=== PATIENT | male | born 1945 | race African-American/Black ===

== ENCOUNTER 2019-03-11 20:58 | Emergency (ER) | payer MEDICARE, OTHER ==
[~2019-03-11] VITALS: Ht 182.9 cm; Wt 81.6 kg
--- NOTE | 2019-03-11 21:00 | NUR ---
ED Nurse Note: PT FLORENTIN from [facility], facility reporting pt with increased confusion today, pt is A&Ox1 due to dementia status, VSS, on room air no distress. SOLITARIO seen Pt at bedside.
--- NOTE | 2019-03-11 21:30 | NUR ---
ED Nurse Note: Urine and blood sample sent to lab.
--- NOTE | 2019-03-11 21:40 | NUR ---
ED Nurse Note: Pt went to CT scan.
[2019-03-11 21:46] LABS: APPEARANCE,URINE CLEAR; BILIRUBIN, URINE NEGATIVE (NEGATIVE); GLUCOSE, URINE (UA) NEGATIVE (NEGATIVE); KETONES,URINE NEGATIVE (NEGATIVE); LEUKOCYTE ESTERASE ,URINE NEGATIVE (NEGATIVE); NITRITE,URINE NEGATIVE (NEGATIVE); PH,URINE 5 (4.5-8.0); PROTEIN,URINE 1+ (NEGATIVE); UROBILINOGEN,URINE 1 MG/DL (0.0-1.0)
[2019-03-11 21:47] LABS: BASOPHILS % (AUTO) 2.2 % (0.0-2.0); EOSINOPHILS % (AUTO) 2.6 % (0.0-3.0); HEMATOCRIT 40.6 % (42.0-52.0); HEMOGLOBIN 13.9 G/DL (14.2-18.0); LYMPHOCYTES % (AUTO) 38.3 % (20.0-45.0); MEAN CORPUSCULAR VOLUME 87 FL (80-99); MONOCYTES % (AUTO) 8.4 % (1.0-10.0); NEUTROPHILS % (AUTO) 48.4 % (45.0-75.0); PLATELET COUNT 292 K/UL (150-450); RED BLOOD COUNT 4.66 M/UL (4.70-6.10); RED CELL DISTRIBUTION WIDTH 11.4 % (11.6-14.8); WHITE BLOOD COUNT 6.2 K/UL (4.8-10.8)
[2019-03-11 21:48] LABS: COLOR,URINE YELLOW
[2019-03-11 21:55] LABS: ANION GAP 6 mmol/L (5-15); BLOOD UREA NITROGEN 20 mg/dL (7-18); CALCIUM 9.8 MG/DL (8.5-10.1); CARBON DIOXIDE 29 MMOL/L (21-32); CHLORIDE 107 MMOL/L (98-107); CREATININE 1.2 MG/DL (0.55-1.30); SODIUM 142 MMOL/L (136-145)
[2019-03-11 22:06] LABS: ALANINE AMINOTRANSFERASE 39 U/L (12-78); ALBUMIN 3.5 G/DL (3.4-5.0); ALBUMIN/GLOBULIN RATIO 0.8 (1.0-2.7); ALKALINE PHOSPHATASE 55 U/L (46-116); ASPARTATE AMINO TRANSFERASE 39 U/L (15-37); BILIRUBIN,TOTAL 0.3 MG/DL (0.2-1.0)
--- NOTE | 2019-03-11 23:00 | NUR ---
ED Nurse Note: Report given to [facility] JOESPH Slade Pt will return back SNF.
--- NOTE | 2019-03-11 23:02 | NUR ---
ED Nurse Note: Pt pee on floor due to dementia, clean Pt and change new cloth.
[2019-03-11 23:03] VITALS: BP 130/71
--- NOTE | 2019-03-11 23:10 | NUR ---
ED Nurse Note: Snack food provided,
[2019-03-11 23:44] VITALS: BP 146/80
--- NOTE | 2019-03-11 23:47 | NUR ---
ED Nurse Note: Report given to CARLOS Oneal. Pt is AO x 2 times due to dementia status, VSS, on room air no distress. Pt will arrive SNF in 25 minutes.
[2019-03-11 23:48] VITALS: BP 146/80
--- NOTE | 2019-03-12 02:47 | Emergency Room Report ---
History of Present Illness General Chief Complaint: Altered Mental Status Source: Patient, Medical Record, EMS Present Illness HPI 73-year-old male presents ED for evaluation. Brought in by EMS from senior living facility for evaluation of increasing confusion. Per nursing staff patient was found wandering at facility today appeared confused. Upon arrival patient is awake. States he feels okay. Does not know why he is here. Denies any pain. Denies any dizziness or weakness. Denies fevers or chills. No other aggravating or relieving factors. Denies any other associated symptoms Allergies: Coded Allergies: No Known Allergies (Unverified , 03/11/19) Patient History Past Medical History: dementia, psych hx Past Surgical History: none Pertinent Family History: none Social History: Denies: smoking, alcohol use, drug use Immunizations: UTD Reviewed Nursing Documentation: PMH: Agreed; PSxH: Agreed Nursing Documentation-PMH Past Medical History Deferred: Pt Cognitively Impaired Past Medical History: No History, Except For History Of Psychiatric Problem: Yes - schizo, pyschosis, depression Review of Systems All Other Systems: negative except mentioned in HPI Physical Exam Vital Signs Date Time Temp Pulse Resp B/P (MAP) Pulse Ox O2 Delivery O2 Flow Rate FiO2 03/11/19 20:54 98.6 80 18 134/78 (96) 96 Room Air Sp02 EP Interpretation: reviewed, normal General Appearance: no apparent distress, alert, GCS 15, non-toxic Head: normocephalic Eyes: bilateral eye normal inspection, bilateral eye PERRL ENT: normal ENT inspection Neck: normal inspection Respiratory: chest non-tender, lungs clear, normal breath sounds, speaking full sentences Cardiovascular #1: regular rate, rhythm, no edema Gastrointestinal: normal bowel sounds, non tender, soft, non-distended, no guarding, no rebound Rectal: deferred Genitourinary: no CVA tenderness Musculoskeletal: normal inspection Neurologic: alert, responsive, motor strength/tone normal, sensory intact, speech normal Psychiatric: mood/affect normal, no suicidal/homicidal ideation Skin: no rash Lymphatic: normal inspection Medical Decision Making Diagnostic Impression: Primary Impression: Altered mental status Qualified Codes: R41.82 - Altered mental status, unspecified Additional Impression: Dementia Qualified Codes: F03.90 - Unspecified dementia without behavioral disturbance ER Course Hospital Course 73-year-old male presents with altered mental status. Found wandering in senior living facility Differential diagnoses include: arrythmia, dehydration, intracranial bleed, UTI , sepsis Clinical course Patient placed on stretcher. on communication and outreach manager. After initial history and physical I ordered labs, EKG, chest Xray, IVFs, CT Brain labs reviewed- no leukocytosis, Hb/Hct stable, electrolytes ok, UA negative CT Brain - old subdural hematoma. no mass effect or midline shift Chest x-ray- no acute process EKG - NSR, no acute ischemic changes inteprreted by me Patient has no focal deficits. Is able to converse with myself and nursing staff. Vitals stable. Labs unremarkable. Patient is DNR/comfort. This is likely patient's baseline dementia. Discussed with PMD Dr. Castillo; he agrees that patient can be safely discharged back to senior living facility I. I feel this is a highly complex case requiring extensive working including EKG/Rhythm strip, Xray/CT/US, Blood/urine lab work, repeat exams while in ED, and administration of strong opiates/narcotics for pain control, admission to hospital or close patient follow up. Diagnosis - AMS, dementia Stable and discharged to SNF. Followup with PMD. Return to ED if symptoms recur or worsen Labs Test 03/11/19 21:00 03/11/19 21:10 White Blood Count 6.2 K/UL (4.8-10.8) Red Blood Count 4.66 M/UL (4.70-6.10) Hemoglobin 13.9 G/DL (14.2-18.0) Hematocrit 40.6 % (42.0-52.0) Mean Corpuscular Volume 87 FL (80-99) Mean Corpuscular Hemoglobin 29.8 PG (27.0-31.0) Mean Corpuscular Hemoglobin Concent 34.2 G/DL (32.0-36.0) Red Cell Distribution Width 11.4 % (11.6-14.8) Platelet Count 292 K/UL (150-450) Mean Platelet Volume 6.8 FL (6.5-10.1) Neutrophils (%) (Auto) 48.4 % (45.0-75.0) Lymphocytes (%) (Auto) 38.3 % (20.0-45.0) Monocytes (%) (Auto) 8.4 % (1.0-10.0) Eosinophils (%) (Auto) 2.6 % (0.0-3.0) Basophils (%) (Auto) 2.2 % (0.0-2.0) Sodium Level 142 MMOL/L (136-145) Potassium Level 4.0 MMOL/L (3.5-5.1) Chloride Level 107 MMOL/L (98-107) Carbon Dioxide Level 29 MMOL/L (21-32) Anion Gap 6 mmol/L (5-15) Blood Urea Nitrogen 20 mg/dL (7-18) Creatinine 1.2 MG/DL (0.55-1.30) Estimat Glomerular Filtration Rate mL/min (>60) Glucose Level 163 MG/DL (74-106) Lactic Acid Level 1.40 mmol/L (0.4-2.0) Calcium Level 9.8 MG/DL (8.5-10.1) Total Bilirubin 0.3 MG/DL (0.2-1.0) Aspartate Amino Transf (AST/SGOT) 39 U/L (15-37) Alanine Aminotransferase (ALT/SGPT) 39 U/L (12-78) Alkaline Phosphatase 55 U/L (46-116) Pro-B-Type Natriuretic Peptide 63 pg/mL (0-125) Total Protein 7.9 G/DL (6.4-8.2) Albumin 3.5 G/DL (3.4-5.0) Globulin 4.4 g/dL Albumin/Globulin Ratio 0.8 (1.0-2.7) Urine Color Yellow Urine Appearance Clear Urine pH 5 (4.5-8.0) Urine Specific [place] 1.025 (1.005-1.035) Urine Protein 1+ (NEGATIVE) Urine Glucose (UA) Negative (NEGATIVE) Urine Ketones Negative (NEGATIVE) Urine Blood Negative (NEGATIVE) Urine Nitrite Negative (NEGATIVE) Urine Bilirubin Negative (NEGATIVE) Urine Urobilinogen 1 MG/DL (0.0-1.0) Urine Leukocyte Esterase Negative (NEGATIVE) Urine RBC 0-2 /HPF (0 - 0) Urine WBC 0-2 /HPF (0 - 0) Urine Squamous Epithelial Cells None /LPF (NONE/OCC) Urine Bacteria None /HPF (NONE) EKG Diagnostic Results Rate: normal Rhythm: NSR ST Segments: no acute changes ASA given to the pt in ED: No Rhythm Strip Diag. Results EP Interpretation: yes Rhythm: NSR, no PVC's, no ectopy Chest X-Ray Diagnostic Results Chest X-Ray Diagnostic Results : Chest X-Ray Ordered: Yes # of Views/Limited/Complete: 1 View Indication: Other EP Interpretation: Yes Interpretation: no consolidation, no effusion, no pneumothorax, no acute cardiopulmonary disease Impression: No acute disease Electronically Signed by: Electronically signed by Osito Echavarria MD CT/MRI/US Diagnostic Results CT/MRI/US Diagnostic Results : Imaging Test Ordered: CT Head Impression old subdural hematoma. no mass effect or midline shift Last Vital Signs Date Time Temp Pulse Resp B/P (MAP) Pulse Ox O2 Delivery O2 Flow Rate FiO2 03/11/19 23:48 98.1 73 18 146/80 100 Room Air Status: improved Disposition: XFER SNF Condition: Stable Referrals: Elaine Moreno MD (PCP) Danyel Castillo MD Patient Instructions: Dementia, [id number] Osito Echavarria MD Mar 12, 2019 02:47
--- NOTE | 2019-03-12 10:52 | Diagnostic Imaging Report ---
Indications: Altered mental status Technique: Spiral acquisitions obtained through the brain. Angled axial and coronal 5 x 5 mm slices were reconstructed. Total dose length product 1432.2 mGycm. CTDI vol(s) 70.38 mGy. Dose reduction achieved using automated exposure control Comparison: None. Findings: There is some image degradation due to motion artifact. There is a right frontal subdural hematoma which measures 3 mm in thickness, is isoattenuating to [place] matter. This does not result in any significant mass effect. No other evidence of acute hemorrhage or edema. There is extensive periventricular deep white matter low-attenuation. There is marked age-related enlargement of the ventricles and extra axial CSF spaces. The calvarium is intact. The visualized orbits and sinuses are unremarkable. There is evidence of prior surgical repair of the right mandible. The mastoids are clear. Impression: Small 3 mm thick right frontal subdural hematoma, probably subacute or old. No significant resultant mass effect Chronic age related changes, as described Evidence of prior right mandibular surgery This agrees with the preliminary interpretation provided overnight by Dr. Moreno The CT scanner at [facility] is accredited by the [employer] and the scans are performed using protocols designed to limit radiation exposure to as low as reasonably achievable to attain images of sufficient resolution adequate for diagnostic evaluation.
--- NOTE | 2019-03-12 16:18 | Diagnostic Imaging Report ---
Indication: Chest pain Technique: One view of the chest Comparison: none Findings: No acute infiltrates, effusions, or congestion. Tortuous calcified aorta. Normal heart size. Upper mediastinum unremarkable. Impression: No acute process.
== END 2019-03-11 23:51 ==
LOC: EDBD 20:58 → EMR 21:31
DX: F03.90 Unspecified dementia, unspecified severity, without behavioral disturbance, psychotic disturbance, mood disturbance, and anxiety (principal); R41.82 Altered mental status, unspecified; F20.9 Schizophrenia, unspecified; F32.9 Major depressive disorder, single episode, unspecified; R07.9 Chest pain, unspecified
CPT/HCPCS: 36415; 70450; 71045; 80053; 81003; 83605; 83880; 85025; 87040; 93005; 96360; 99284

== ENCOUNTER 2020-06-13 13:39 | Inpatient (IN) | payer MEDICARE, OTHER ==
[~2020-06-13] VITALS: Ht 198.1 cm; Wt 58.1 kg
[2020-06-13 13:50] VITALS: BP 146/83
--- NOTE | 2020-06-13 14:39 | Emergency Room Report ---
History of Present Illness General Chief Complaint: Multiple Trauma/Fall Source: Patient Present Illness HPI 74-year-old male with a history of dementia here with a syncopal episode and head trauma. Patient says that he was getting out of the tub and had a syncopal episode and fell and struck the left side of his head on the edge of the tub. Says that he was unconscious for a few seconds. His daughter witnessed the event. Patient is awake and alert in the emergency department. Only complaining of mild left-sided headache. Denies vision changes, focal numbness or weakness, fevers, chills, chest pain, palpitation, shortness of breath, back pain, abdominal pain, nausea, vomiting, diarrhea, dysuria. Allergies: Coded Allergies: ASPIRIN (Verified Allergy, Unknown, 06/13/20) COVID-19 Screening Contact w/high risk pt: No Experienced COVID-19 symptoms?: No COVID-19 Testing performed POLYSOMNOGRAPHY TECHNOLOGIST: No Nursing Documentation-PMH Past Medical History: No History, Except For Review of Systems All Other Systems: negative except mentioned in HPI Physical Exam Vital Signs Date Time Temp Pulse Resp B/P (MAP) Pulse Ox O2 Delivery O2 Flow Rate FiO2 06/13/20 13:45 97.5 95 16 146/83 (104) 100 Room Air Sp02 EP Interpretation: reviewed, normal General Appearance: no apparent distress, alert, non-toxic Head: normocephalic, other - Small 2 cm subcutaneous hematoma on left temporal scalp. No cervical spine tenderness. Normal neck range of motion Eyes: bilateral eye normal inspection, bilateral eye PERRL ENT: hearing grossly normal, normal pharynx, no angioedema, normal voice Neck: full range of motion, supple/symm/no masses Respiratory: chest non-tender, lungs clear, normal breath sounds, speaking full sentences Cardiovascular #1: regular rate, rhythm, no edema Cardiovascular #2: 2+ carotid (R), 2+ carotid (L), 2+ radial (R), 2+ radial (L), 2+ dorsalis pedis (R), 2+ dorsalis pedis (L) Gastrointestinal: normal bowel sounds, non tender, soft, non-distended, no guarding, no rebound Rectal: deferred Genitourinary: normal inspection, no CVA tenderness Musculoskeletal: back normal, normal range of motion, gait/station normal, non- tender Neurologic: alert, motor strength/tone normal, oriented x3, sensory intact, responsive, speech normal, other - Slightly slow to respond to questions but is alert and oriented x3 and able to respond to questions appropriately Psychiatric: judgement/insight normal, memory normal, mood/affect normal, no suicidal/homicidal ideation Lymphatic: no adenopathy Medical Decision Making Diagnostic Impression: Primary Impression: Altered mental status Additional Impressions: Fall Multiple injuries due to trauma Syncope UTI (urinary tract infection) Dehydration ER Course EKG: NSR, tall peaked T waves V2-V4, intervals WNL. No ectopy Rhythm strip: patient monitored for arrhythmias - no malignant dysrhythmias, runs of PVCs, nor pauses noted Chest x-ray: Indication fall with syncope: No acute cardiopulmonary abnormalities. Very mild pulmonary vascular congestion. No pleural effusions. No free air under the diaphragm. Normal heart borders. Trachea midline. No bony abnormalities. No pneumothorax Laboratory Tests Test 06/13/20 14:45 06/13/20 16:30 White Blood Count 10.1 K/UL (4.8-10.8) Red Blood Count 4.41 M/UL (4.70-6.10) L Hemoglobin 13.3 G/DL (14.2-18.0) L Hematocrit 39.1 % (42.0-52.0) L Mean Corpuscular Volume 89 FL (80-99) Mean Corpuscular Hemoglobin 30.0 PG (27.0-31.0) Mean Corpuscular Hemoglobin Concent 33.9 G/DL (32.0-36.0) Red Cell Distribution Width 12.8 % (11.6-14.8) Platelet Count 476 K/UL (150-450) H Mean Platelet Volume 6.8 FL (6.5-10.1) Neutrophils (%) (Auto) 69.1 % (45.0-75.0) Lymphocytes (%) (Auto) 20.2 % (20.0-45.0) Monocytes (%) (Auto) 7.2 % (1.0-10.0) Eosinophils (%) (Auto) 0.9 % (0.0-3.0) Basophils (%) (Auto) 2.5 % (0.0-2.0) H Sodium Level 143 MMOL/L (136-145) Potassium Level 3.2 MMOL/L (3.5-5.1) L Chloride Level 104 MMOL/L (98-107) Carbon Dioxide Level 29 MMOL/L (21-32) Anion Gap 10 mmol/L (5-15) Blood Urea Nitrogen 14 mg/dL (7-18) Creatinine 1.2 MG/DL (0.55-1.30) Estimated Glomerular Filtration Rate > 60 mL/min (>60) Glucose Level 104 MG/DL (74-106) Calcium Level 9.0 MG/DL (8.5-10.1) Total Bilirubin 0.9 MG/DL (0.2-1.0) Aspartate Amino Transferase (AST) 55 U/L (15-37) H Alanine Aminotransferase (ALT) 31 U/L (12-78) Alkaline Phosphatase 69 U/L (46-116) Troponin I 0.020 ng/mL (0.000-0.056) Total Protein 8.1 G/DL (6.4-8.2) Albumin 3.2 G/DL (3.4-5.0) L Globulin 4.9 g/dL Albumin/Globulin Ratio 0.7 (1.0-2.7) L Urine Color Pending Urine Appearance Pending Urine pH Pending Urine Specific [place] Pending Urine Protein Pending Urine Glucose (UA) Pending Urine Ketones Pending Urine Blood Pending Urine Nitrite Pending Urine Bilirubin Pending Urine Urobilinogen Pending Urine Leukocyte Esterase Pending 74-year-old male here after syncopal episode. Patient was hemodynamically stable throughout his stay in the emergency department. He has dementia at his baseline and was slightly combative in the emergency room refusing interventions such as CT scan and blood draws. Patient was given Haldol and Ativan. CT head and CT cervical spine unremarkable. EKG showed some enlarged T waves in V2 and V3, however CMP showed normal values including a normal potassium. CBC largely unremarkable. Chest x-ray normal. Patient's daughter and primary physician informed the emergency room that the patient has been showing evidence of urinary tract infection. Urinalysis currently pending at this time but patient did receive ceftriaxone as well as 1 L of normal saline in the emergency department. He remained hemodynamically stable and neurovascular intact throughout the stay in the emergency department. Admitted to telemetry in stable condition. Last Vital Signs Date Time Temp Pulse Resp B/P (MAP) Pulse Ox O2 Delivery O2 Flow Rate FiO2 06/13/20 13:50 97.5 95 16 146/83 100 Room Air Tray Blum M.D. Jun 13, 2020 14:39
[2020-06-13] MEDS ORDERED: Haloperidol 5mg/ml Inj ONE (14:56)
[2020-06-13] MEDS ORDERED: Haloperidol Lactate 2 MG in D5W 55 ML IVPB ONE (15:00)
[2020-06-13] MEDS ORDERED: LORazepam Inj 2mg/ml 1ml IV ONE (15:00)
[2020-06-13 15:18] LABS: BASOPHILS % (AUTO) 2.5 % (0.0-2.0); EOSINOPHILS % (AUTO) 0.9 % (0.0-3.0); HEMATOCRIT 39.1 % (42.0-52.0); HEMOGLOBIN 13.3 G/DL (14.2-18.0); LYMPHOCYTES % (AUTO) 20.2 % (20.0-45.0); MEAN CORPUSCULAR VOLUME 89 FL (80-99); MONOCYTES % (AUTO) 7.2 % (1.0-10.0); NEUTROPHILS % (AUTO) 69.1 % (45.0-75.0); PLATELET COUNT 476 K/UL (150-450); RED BLOOD COUNT 4.41 M/UL (4.70-6.10); RED CELL DISTRIBUTION WIDTH 12.8 % (11.6-14.8); WHITE BLOOD COUNT 10.1 K/UL (4.8-10.8)
[2020-06-13 15:38] LABS: ANION GAP 10 mmol/L (5-15); BLOOD UREA NITROGEN 14 mg/dL (7-18); CARBON DIOXIDE 29 MMOL/L (21-32); CHLORIDE 104 MMOL/L (98-107); CREATININE 1.2 MG/DL (0.55-1.30); POTASSIUM 3.2 MMOL/L (3.5-5.1); SODIUM 143 MMOL/L (136-145)
[2020-06-13 15:42] LABS: ALANINE AMINOTRANSFERASE 31 U/L (12-78); ALBUMIN 3.2 G/DL (3.4-5.0); ALBUMIN/GLOBULIN RATIO 0.7 (1.0-2.7); ALKALINE PHOSPHATASE 69 U/L (46-116); ASPARTATE AMINO TRANSFERASE 55 U/L (15-37); BILIRUBIN,TOTAL 0.9 MG/DL (0.2-1.0)
[2020-06-13 16:02] VITALS: BP 149/78
--- NOTE | 2020-06-13 16:21 | Diagnostic Imaging Report ---
Indications: Altered mental status, status post fall Technique: Spiral acquisitions obtained through the brain. Angled axial and coronal 5 x 5 mm slices were reconstructed. Total dose length product 1205 mGycm. CTDI vol(s) 53 mGy. Dose reduction achieved using automated exposure control Comparison: 03/11/2019 Findings: There is image degradation due to motion artifact. Small right frontal chronic subdural hematoma measuring up to 3 mm in thickness is unchanged, does not result in any significant mass effect. Again demonstrated is marked age-related enlargement of the ventricles and extra axial CSF spaces. There is periventricular deep white matter low-attenuation, consistent with chronic microvascular ischemic changes. No acute intracranial hemorrhage or edema, mass effect, nor midline shift. The mastoids are clear. The calvarium is grossly intact. The visualized orbits and sinuses are unremarkable Impression: Limited exam due to motion artifact Chronic and age-related changes Negative for acute intracranial bleed or mass effect Unchanged small old chronic right frontal subdural hematoma The CT scanner at [facility] is accredited by the [employer] and the scans are performed using protocols designed to limit radiation exposure to as low as reasonably achievable to attain images of sufficient resolution adequate for diagnostic evaluation.
--- NOTE | 2020-06-13 16:35 | Diagnostic Imaging Report ---
Indication: Trauma, pain Technique: Spiral acquisitions obtained through the cervical spine. No IV contrast utilized. Multiplanar reconstructions were generated. Total dose length product 492 mGycm. CTDIvol(s) 19 mGy. Dose reduction achieved using automated exposure control. Comparison: none Findings: There is a fracture of the left mandibular angle. There is some cortication indistinctness of the fracture lines, suggesting that this is nonacute, although there is also gas within the adjacent masseter muscle and thickening of the adjacent masseter muscle and adjacent subcutaneous fat suggesting acuity. This fracture abuts the root of the adjacent posterior molar there is surgical hardware seen within the right mandibular ramus/neck junction. No underlying fracture line is visible. There is also what appears to be surgical hardware along the mentum of the mandible. This is only included on the sagittal reconstructed images. There is extensive chronic appearing degenerative remodeling of the left mandibular head and marked narrowing of the joint space. There are degenerative changes of the right temporomandibular joint as well. The cervical bony alignment is normal. No prevertebral soft tissue swelling. Vertebral body heights are preserved. No acute fracture. No dislocation. There is moderate degenerative disc narrowing at C2-3. No significant disc bulge, disc protrusion, spinal stenosis, or neural foraminal stenosis. The C3-4 disc is essentially obliterated, and there is ankylosis of the disc. There are posterior osteophytes but no significant spinal canal stenosis. There is moderate to severe right, severe left neural foraminal stenosis. At C4-5, there is severe degenerative disc narrowing. There is severe bilateral neural foraminal stenosis. No significant disc bulge or protrusion or spinal stenosis. There is bilateral facet arthrosis. At C5-6, there is severe degenerative disc narrowing. There is severe bilateral neural foraminal stenosis. No significant disc bulge or protrusion or spinal stenosis. At C6-7, there is moderate degenerative disc narrowing. There is severe right and moderate to severe left neural foraminal stenosis. No significant disc bulge or protrusion or spinal stenosis. At C7-T1, no significant disc bulge or protrusion, spinal stenosis, or neural foraminal stenosis. There is bilateral facet arthrosis. The included extraspinal soft tissues demonstrate unusual eggshell calcifications in the left supraclavicular neck. There appear to be 3 rounded lesions in tandem, largest measuring 2 cm in diameter. Appearance is suggestive of calcified aneurysm or aneurysms, but these appear to be separate from the common carotid and subclavian arteries, so may represent a nonvascular process. The remainder of the extra spinal soft tissues are unremarkable. Impression: No evidence of acute cervical spine trauma Marked abnormality of the mandible, with evidence of prior surgery of the right neck/ramus and mentum, severe degenerative changes of the temporomandibular joints. There is also an ununited fracture of the left mandibular angle. Suspect that this is not acute, but there is some overlying muscular and subcutaneous fat contusion raising the possibility that this is acute. Correlation with clinical findings is recommended Unusual eggshell calcification structures in the left supraclavicular neck. These may represent calcified aneurysmal disease versus postinflammatory changes. Recommend further evaluation with contrast CT of the neck and upper chest that these have not been worked up previously. Multilevel degenerative changes, as detailed on a level by level basis above The CT scanner at [facility] is accredited by the [employer] and the scans are performed using protocols designed to limit radiation exposure to as low as reasonably achievable to attain images of sufficient resolution adequate for diagnostic evaluation.
[2020-06-13] MEDS ORDERED: cefTRIAXone 1 GM in NS 55 ML IVPB ONE (16:45)
[2020-06-13 17:20] LABS: APPEARANCE,URINE CLEAR; BILIRUBIN, URINE 1+ (NEGATIVE); GLUCOSE, URINE (UA) NEGATIVE (NEGATIVE); KETONES,URINE 1+ (NEGATIVE); LEUKOCYTE ESTERASE ,URINE 1+ (NEGATIVE); NITRITE,URINE NEGATIVE (NEGATIVE); PH,URINE 6.5 (4.5-8.0); PROTEIN,URINE 2+ (NEGATIVE); UROBILINOGEN,URINE 8 MG/DL (0.0-1.0)
[2020-06-13 17:31] LABS: COLOR,URINE YELLOW
[2020-06-14] VITALS: BP 141/76
[2020-06-14 04:00] VITALS: BP 114/60
[2020-06-14 08:00] VITALS: BP 105/55
[2020-06-14] MEDS: Heparin 5000 units/ml inj SUBQ SCH ×2 (10:04→20:10)
[2020-06-14 12:00] VITALS: BP 148/85
[2020-06-14] MEDS ORDERED: LORazepam Inj 2mg/ml 1ml IV PRN (12:15)
--- NOTE | 2020-06-14 12:59 | General Progress Note ---
Subjective Date patient seen: Jun 14, 2020 Constitutional: Reports: weakness HEENT: Reports: mouth pain, mouth swelling Cardiovascular: Reports: no symptoms Respiratory: Reports: cough Gastrointestinal/Abdominal: Reports: abdominal pain, constipated Genitourinary: Reports: burning, frequency, incontinence Neurologic/Psychiatric: Reports: depressed, weakness Endocrine: Reports: no symptoms Hematologic/Lymphatic: Reports: no symptoms Allergies: Coded Allergies: ASPIRIN (Verified Allergy, Unknown, 06/13/20) Subjective non verabal agitated Objective Last 24 Hour Vital Signs Date Time Temp Pulse Resp B/P (MAP) Pulse Ox O2 Delivery O2 Flow Rate FiO2 06/14/20 10:35 98.8 06/14/20 08:00 68 06/14/20 08:00 101.3 74 20 105/55 (72) 100 06/14/20 04:00 98.0 68 18 114/60 (78) 98 06/14/20 04:00 64 06/14/20 00:00 58 06/14/20 00:00 97.7 76 18 141/76 (97) 98 06/13/20 21:34 Room Air 06/13/20 18:30 97.4 76 18 112/68 98 Room Air 06/13/20 16:02 97.1 66 17 149/78 99 Room Air 06/13/20 15:32 72 18 158/74 99 06/13/20 15:02 95 16 146/83 100 06/13/20 13:50 97.5 95 16 146/83 100 Room Air 06/13/20 13:50 95 16 Room Air 06/13/20 13:45 97.5 95 16 146/83 (104) 100 Room Air Intake and Output 06/13/20 06/14/20 19:00 07:00 Intake Total 75 ml Balance 75 ml Intake IV Total 75 ml # Voids 1 Laboratory Tests 06/13/20 14:45: White Blood Count 10.1, Red Blood Count 4.41L, Hemoglobin 13.3L, Hematocrit 39.1L, Mean Corpuscular Volume 89, Mean Corpuscular Hemoglobin 30.0, Mean Corpuscular Hemoglobin Concent 33.9, Red Cell Distribution Width 12.8, Platelet Count 476H, Mean Platelet Volume 6.8, Neutrophils (%) (Auto) 69.1, Lymphocytes (%) (Auto) 20.2, Monocytes (%) (Auto) 7.2, Eosinophils (%) (Auto) 0.9, Basophils (%) (Auto) 2.5H, Sodium Level 143, Potassium Level 3.2L, Chloride Level 104, Carbon Dioxide Level 29, Anion Gap 10, Blood Urea Nitrogen 14, Creatinine 1.2, Estimat Glomerular Filtration Rate > 60, Glucose Level 104, Calcium Level 9.0, Total Bilirubin 0.9, Aspartate Amino Transf (AST/SGOT) 55H, Alanine Aminotransferase (ALT/SGPT) 31, Alkaline Phosphatase 69, Troponin I 0.020, Total Protein 8.1, Albumin 3.2L, Globulin 4.9, Albumin/Globulin Ratio 0.7L 06/13/20 16:30: Urine Color Yellow, Urine Appearance Clear, Urine pH 6.5, Urine Specific [place] 1.015, Urine Protein 2+H, Urine Glucose (UA) Negative, Urine Ketones 1+H, Urine Blood Negative, Urine Nitrite Negative, Urine Bilirubin 1+H, Urine Ictotest Negative, Urine Urobilinogen 8H, Urine Leukocyte Esterase 1+H, Urine RBC 0, Urine WBC 0-2, Urine Squamous Epithelial Cells None, Urine Bacteria Few Height (Feet): 5 Height (Inches): 9.00 Weight (Pounds): 125 General Appearance: confused Neck: non-tender Cardiovascular: normal rate Respiratory/Chest: lungs clear Abdomen: non tender, soft Extremities: non-tender Skin: warm/dry Assessment/Plan Status: fever Assessment/Plan: 1 uti 2 fever 3 aloc 4 dementia 5 fall 6 failure of thrive increased po fluids ivf iv abx pt/ot psych conslt Jakob Munoz MD Jun 14, 2020 12:59
--- NOTE | 2020-06-14 13:59 | Diagnostic Imaging Report ---
Indications: Left jaw pain, fracture demonstrated on recent cervical spine CT Technique: Spiral images obtained through the facial bones. No IV contrast utilized. Multiplanar reconstructions were generated.Total dose length product 453 mGycm. CTDIvol(s) 15 mGy. Dose reduction achieved using automated exposure control Comparison: Reference made to CT cervical spine 06/13/2020 Findings: Surgical hardware is seen along the mentum and left anterolateral aspect of the mandible. No residual fracture line is demonstrated. Surgical hardware is also seen within the right mandibular ramus/neck junction, likewise without evidence of residual acute fracture line. There is a slightly comminuted oblique fracture at the junction of the posterior mandibular body and angle. This is distracted by approximately 6 mm. This surrounds the root of the sole remaining molar, but the molar is intact. There is slight swelling of the overlying masseter muscle and a small amount gas within the overlying masseter muscle. However, the edges of the fracture lines appear somewhat sclerotic. There are severe degenerative changes of the bilateral temporomandibular joints, particularly on the left, with extensive degenerative remodeling and chronic appearing subluxation. No other facial fractures are demonstrated. The optic globes and retroseptal orbits are intact. The sinuses are clear. The patient is edentulous except for the one surviving left mandibular molar. Impression: Fracture of the left side of the mandible, as described. Suspect acute, given overlying soft tissue swelling and gas. However, some sclerotic fracture lines suggests that this could in fact be a subacute or old ununited fracture. Postsurgical changes of the mandible, with evidence of prior surgical repair of the mentum and left paramental region, and of the right ramus Severe degenerative changes of the temporomandibular joints Degenerative changes of the cervical spine The CT scanner at [facility], [place] is accredited by the [employer] and the scans are performed using protocols designed to limit radiation exposure to as low as reasonably achievable to attain images of sufficient resolution adequate for diagnostic evaluation.
[2020-06-14 16:00] VITALS: BP 155/72
[2020-06-14] MEDS: cefTRIAXone 1 GM in D5W 55 ML IVPB SCH (16:14)
--- NOTE | 2020-06-14 19:00 | History and Physical Report ---
DATE OF ADMISSION: 06/13/2020 Late entry. Patient was seen yesterday in the clinic, was sent to the emergency room because of multiple falls, altered mental status, dehydration, dementia, and jaw pain. HISTORY OF PRESENT ILLNESS: This is a 74-year-old male who came from a clinic where he lives with the daughter, where he had multiple falls and has been peeing allover the place and was having urinary incontinency and dehydration. Patient came to the emergency room and found to have dehydration and UTI. Patient is currently in the bed, sleepy. PAST MEDICAL HISTORY: Significant for dementia, depression, history of jaw infection and surgery. MEDICATIONS: See list. ALLERGIES: NKA. FAMILY HISTORY: Lives with the daughter. Patient used to walk by himself, now needing maximum assistance. REVIEW OF SYSTEMS: Cannot be obtained. PHYSICAL EXAMINATION: GENERAL: This is an elderly cachectic male who is currently in bed and sleepy. VITAL SIGNS: Blood pressure is 105/55, pulse 74, respirations 20, T-max 101.3. SKIN: Dry. HEENT: Eyes are closed. NECK: Supple. CHEST: Bilaterally decreased breath sounds. CARDIOVASCULAR: Regular rhythm. ABDOMEN: Soft. Positive bowel sounds. Nontender. EXTREMITIES: Wasting of muscles. GENITOURINARY: Deferred. LABORATORY EXAMINATION: Labs from yesterday, white counts are 10, hemoglobin 13, hematocrit 39, platelets are 476. Chemistry, potassium was 3.2, BUN 14, creatinine 1.2. Troponins are negative. Albumin is 3.2. Urine showing 1+ bilirubin, 8+ , and positive leukocyte esterase, ketones, and protein. IMAGING: Patient has a chest x-ray, no acute process. CT head showing a limited exam due to age-related changes. Negative for mass effect. CT of cervical spine showing no evidence of acute cervical spinal trauma. Multilevel degenerative changes. ASSESSMENT: 1. Altered mental status. 2. Multiple falls. 3. Dehydration. 4. UTI. 5. Dementia is getting worse. PLAN: We will currently continue , Zyprexa, lorazepam, Plavix, and Tylenol. Discussed with charge nurse. Jonathan Munoz M.D. DR: BEAR JOB#: [id number] CC:
[2020-06-14 20:00] VITALS: BP 143/74
[2020-06-14] MEDS: Haloperidol 5mg/ml Inj IM PRN (20:10)
[2020-06-15] VITALS (7 sets, daily range): BP systolic 139–160; BP diastolic 77–96
--- NOTE | 2020-06-15 00:30 | Consultation ---
DATE OF CONSULTATION: 06/14/2020 CONSULTING PHYSICIAN: Joni Del Rosario MD HISTORY OF PRESENT ILLNESS: This is a 74-year-old male with a history of depression, psychotic disorder, dementia who has been admitted to the hospital for multiple fall and altered mental status and jaw pain. Upon evaluation, patient is confused, disoriented. He has been urinating and being incontinent. He was a poor historian. Unable to provide any history. The patient has waxing and waning unconscious, memory impairment, not able to be engaged. PAST PSYCHIATRIC HISTORY: Dementia, anxiety. PAST MEDICAL HISTORY: As above. ALLERGIES: Aspirin. SUBSTANCE ABUSE HISTORY: No known history of illicit drug use or alcohol. MENTAL STATUS EXAMINATION: Patient is having waxing consciousness. Disoriented. Mood is anxious. Affect is flat. Thought process, there is a paucity of thought content. Thought content, no suicidal or homicidal ideation. Cognition is impaired. Insight and judgment is impaired. ASSESSMENT: [place] I Dementia. Acute encephalopathy. [place] II Deferred. [place] III Multiple falls. [place] IV Low. [place] V 20. PLAN: 1. Zyprexa 5 mg. 2. Haldol p.r.n. 3. Discontinue Ativan IV and continue the p.o. 4. Discussed with the nurse. Joni Del Rosario M.D. DR: PAUL JOB#: [id number] CC:
[2020-06-15] MEDS: Haloperidol 5mg/ml Inj IM PRN (02:36)
--- NOTE | 2020-06-15 04:10 | Cardiology Report ---
APPROVED REPORT EKG Measurement Heart [id number] <Conclusion> Normal sinus rhythm Left anterior fascicular block Minimal voltage criteria for LVH, may be normal variant Septal infarct, age undetermined Abnormal ECG
--- NOTE | 2020-06-15 08:49 | General Progress Note ---
Subjective Allergies: Coded Allergies: ASPIRIN (Verified Allergy, Unknown, 06/13/20) Subjective non verabal agitated confused Objective Last 24 Hour Vital Signs Date Time Temp Pulse Resp B/P (MAP) Pulse Ox O2 Delivery O2 Flow Rate FiO2 06/15/20 08:03 Room Air 06/15/20 04:00 98 06/15/20 04:00 99.2 84 20 160/82 (108) 100 06/15/20 00:00 99.0 78 20 155/80 (105) 99 06/15/20 00:00 78 06/14/20 21:00 Room Air 06/14/20 20:00 75 06/14/20 20:00 99.0 70 20 143/74 (97) 98 06/14/20 16:00 98 06/14/20 16:00 100.8 83 20 155/72 (99) 100 06/14/20 12:00 98.8 98 20 148/85 (106) 100 06/14/20 12:00 97 06/14/20 10:35 98.8 06/14/20 09:00 Room Air Intake and Output 06/14/20 06/15/20 19:00 07:00 Intake Total 1270 ml 825 ml Balance 1270 ml 825 ml Intake Oral 560 ml IV Total 710 ml 825 ml # Voids 1 3 Height (Feet): 5 Height (Inches): 9.00 Weight (Pounds): 125 General Appearance: cachetic, thin Neck: supple Cardiovascular: bradycardia Respiratory/Chest: lungs clear Abdomen: soft, no organomegaly Extremities: non-tender Neurologic: motor weakness Skin: warm/dry Assessment/Plan Status: fever Assessment/Plan: 1 uti 2 fever 3 aloc 4 dementia 5 fall 6 failure of thrive increased po fluids ivf iv abx pt/ot psych conslt follow culure dysphasia diet ct of jaw dw charge nurse Jakob Munoz MD Jun 15, 2020 08:49
[2020-06-15] MEDS: Heparin 5000 units/ml inj SUBQ SCH ×2 (09:03→20:51)
--- NOTE | 2020-06-15 15:00 | Consultation ---
DATE OF CONSULTATION: 06/15/2020 INFECTIOUS DISEASES CONSULTATION CONSULTING PHYSICIAN: Viviane Botello MD. REFERRING PHYSICIAN: Jakob Munoz MD. REASON FOR CONSULTATION: Urinary tract infection. HISTORY OF PRESENT ILLNESS: This is a 74-year-old gentleman with history of dementia, depression, jaw infection who comes in with multiple falls. He has been having urinary incontinency and he appeared to be dehydrated. He was also found to have urinary tract infection and an Infectious Diseases consultation has been obtained for antibiotics. PAST MEDICAL HISTORY: 1. History of dementia. 2. Depression. 3. Jaw infection. SOCIAL HISTORY: Unknown. FAMILY HISTORY: Unknown. REVIEW OF SYSTEMS: Unable to obtain currently. MEDICATIONS: As an inpatient, he is on Zyprexa, ceftriaxone, Haldol, Plavix, subcutaneous heparin, Tylenol. ALLERGIES: Noted to aspirin. PHYSICAL EXAMINATION: VITAL SIGNS: Temperature of 99, T-max of 101.3, pulse of 86, respiratory rate 23, blood pressure 151/78, O2 saturation of 97%. HEENT: Pupils equally reactive to light and accommodation. Mouth appears clean without thrush. NECK: Supple. No adenopathy. No JVD. CARDIOVASCULAR: Regular rate and rhythm. No murmurs. LUNGS: Clear to auscultation bilaterally. No crackles. No wheezes. ABDOMEN: Soft and nontender. No organomegaly. EXTREMITIES: No cyanosis, no clubbing, no edema. LABORATORY AND DIAGNOSTIC DATA: White count 10.1, hemoglobin 13.3, hematocrit 39.1, MCV 89, platelet count of 476 with neutrophils of 69%. Sodium 143, potassium 3.2, chloride 104, bicarb 29, BUN 14, creatinine 1.2, glucose 104, calcium of 9. Total bilirubin 0.9, AST 55, ALT 31, alkaline phosphatase 69. Troponin 0.02. Total protein 8.1, albumin 3.2. UA is showing 0 to [address] of the cervical spine showing no acute cervical spine trauma, marked abnormality of the mandible with evidence of prior surgery at the right ramus and mentum, severe degenerative changes of the temporomandibular joint is noted. There is an ununited fracture of the left mandibular angle, multilevel degenerative changes noted. 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 Chest x-ray showed no acute process. Maxillofacial CT showing fracture of the left side of the mandible, postsurgical changes of the mandible noted, degenerative changes noted. ASSESSMENT: This is a 74-year-old gentleman with history of dementia as well as depression who comes in with frequent falls and is found to have. 1. Possible urinary tract infection. 2. Dementia. 3. Depression. 4. History of mandibular fracture status post surgery. PLAN: 1. Continue ceftriaxone for now. 2. We will order urine cultures. 3. We will follow up cultures and adjust antibiotics accordingly. I would like to thank, Dr. Munoz for this consultation. Viviane Botello M.D. DR: Halle JOB#: [id number] CC: Jonathan Munoz M.D.; Fax#: [phone]
[2020-06-15] MEDS: cefTRIAXone 1 GM in D5W 55 ML IVPB SCH (15:13)
--- NOTE | 2020-06-15 22:45 | Psychiatric Progress Note ---
Psychiatry Progress Note Psychiatry Progress Note Medications Current Medications Medications (Trade) Dose Ordered Sig/Daniele Route PRN Reason Start Time Stop Time Status Last Admin Dose Admin Acetaminophen (Tylenol) 650 mg Q4H PRN ORAL Mild Pain (Pain Scale 1-3) 06/13/20 21:45 07/13/20 21:44 06/14/20 10:05 Ceftriaxone Sodium 1 gm/ Dextrose 55 ml @ 110 mls/hr Q24H IVPB 06/14/20 16:00 06/21/20 15:59 06/15/20 15:13 Clopidogrel Bisulfate (Plavix) 75 mg DAILY ORAL 06/14/20 09:00 07/14/20 08:59 06/15/20 08:51 Haloperidol Lactate (Haldol) 5 mg Q6H PRN IM Agitation 06/14/20 14:45 07/29/20 14:44 06/15/20 02:36 Heparin Sodium (Porcine) (Heparin 5000 units/ml) 5,000 units EVERY 12 HOURS SUBQ 06/14/20 09:00 07/29/20 08:59 06/15/20 20:51 Olanzapine (ZyPREXA) 5 mg BEDTIME ORAL 06/14/20 21:00 07/29/20 20:59 06/15/20 20:50 Potassium Chloride (K-Dur) 20 meq DAILY ORAL 06/14/20 12:15 09/12/20 12:14 06/15/20 08:51 Sodium Chloride 1,000 ml @ 75 mls/hr [id number] IV 06/13/20 22:00 07/13/20 21:59 06/15/20 14:26 Neurological/Psychiatric: Reports: depressed, weakness Allergies: Coded Allergies: ASPIRIN (Verified Allergy, Unknown, 06/13/20) Objective Data Height (Feet): 5 Height (Inches): 9.00 Weight (Pounds): 125 General Appearance: lethargic, confused, cachetic, thin Additional Comments: waxing consciousness. Disoriented. Mood is anxious. Affect is flat. Thought process, there is a paucity of thought content. Thought content, no suicidal or homicidal ideation. Cognition is impaired. Insight and judgment is impaired. Assessment/Plan Status: fever Assessment/Plan: ASSESSMENT: [place] I Dementia. Acute encephalopathy. [place] II Deferred. [place] III Multiple falls. [place] IV Low. [place] V 20. PLAN: 1. Zyprexa 5 mg. 2. Haldol p.r.n. 3. Discontinue Ativan IV and continue the p.o. 4. Discussed with the nurse. Joni Del Rosario MD Jun 15, 2020 22:45
[2020-06-16] VITALS (17 sets, daily range): BP systolic 109–154; BP diastolic 63–115
[2020-06-16] MEDS: Heparin 5000 units/ml inj SUBQ SCH ×2 (09:14→20:53)
[2020-06-16] MEDS ORDERED: LORazepam 1mg tab ORAL PRN (10:00)
[2020-06-16] MEDS: Haloperidol 5mg/ml Inj IM PRN (11:16)
--- NOTE | 2020-06-16 12:25 | General Progress Note ---
Subjective Allergies: Coded Allergies: ASPIRIN (Verified Allergy, Unknown, 06/13/20) Subjective non verabal pt found has aloc ac resp distress and tachacardic Objective Last 24 Hour Vital Signs Date Time Temp Pulse Resp B/P (MAP) Pulse Ox O2 Delivery O2 Flow Rate FiO2 06/16/20 10:41 86 19 134/75 97 06/16/20 10:11 86 19 144/86 95 06/16/20 09:00 Room Air 06/16/20 08:00 97.3 86 19 144/86 (105) 95 06/16/20 04:00 97.0 94 18 154/97 (116) 94 06/16/20 00:00 97.6 106 20 154/85 (108) 96 06/15/20 21:00 Room Air 06/15/20 20:00 98.6 105 20 151/96 (114) 98 06/15/20 18:30 97.7 98 22 139/84 (102) 98 06/15/20 16:00 97.7 98 22 159/89 (112) 94 06/15/20 16:00 86 Intake and Output 06/15/20 06/16/20 19:00 07:00 Intake Total 875 ml 900 ml Output Total 400 ml Balance 875 ml 500 ml Intake Oral 200 ml IV Total 675 ml 900 ml Output Urine Total 400 ml # Voids 1 # Bowel Movements 1 Laboratory Tests 06/16/20 11:45: Arterial Blood pH 7.463H, Arterial Blood Partial Pressure CO2 33.2L, Arterial Blood Partial Pressure O2 62.9L, Arterial Blood HCO3 23.2, Arterial Blood Oxygen Saturation 92.8L, Arterial Blood Base Excess 0.2, Mark Test Positive Height (Feet): 5 Height (Inches): 9.00 Weight (Pounds): 125 General Appearance: severe distress Neck: supple Cardiovascular: tachycardia Respiratory/Chest: rhonchi - bilaterally Abdomen: non tender, soft Extremities: non-tender Assessment/Plan Status: fever Assessment/Plan: 1 uti 2 fever 3 aloc 4 dementia 5 fall 6 failure of thrive 7 ac cardio-pulmonary arrest transfer to icu check abg cxr dw ed dr parks called cardio npo dc ivf cont iv abx dw charge nurse Jakob Munoz MD Jun 16, 2020 12:25
--- NOTE | 2020-06-16 13:06 | Infectious Diseases Prog Note ---
Assessment/Plan Assessment/Plan A; 1. Possible urinary tract infection. 2. Dementia. 3. Depression. 4. History of mandibular fracture status post surgery. 5. Hypoxemia 6. Tachycardia PLAN: 1. Continue ceftriaxone for now. 2. We will order CXR 3. We will follow up cultures and adjust antibiotics accordingly Subjective ROS Limited/Unobtainable: Yes Constitutional: Reports: other - transferred to ICU; Denies: fever Respiratory: Reports: shortness of breath Allergies: Coded Allergies: ASPIRIN (Verified Allergy, Unknown, 06/13/20) Objective Last 24 Hour Vital Signs Date Time Temp Pulse Resp B/P (MAP) Pulse Ox O2 Delivery O2 Flow Rate FiO2 06/16/20 12:35 153 26 86 06/16/20 12:30 97.8 126 33 137/88 (104) 100 06/16/20 12:00 97.8 143 26 154/115 (128) 86 06/16/20 10:41 86 19 134/75 97 06/16/20 10:11 86 19 144/86 95 06/16/20 09:00 Room Air 06/16/20 08:00 97.3 86 19 144/86 (105) 95 06/16/20 04:00 97.0 94 18 154/97 (116) 94 06/16/20 00:00 97.6 106 20 154/85 (108) 96 06/15/20 21:00 Room Air 06/15/20 20:00 98.6 105 20 151/96 (114) 98 06/15/20 18:30 97.7 98 22 139/84 (102) 98 06/15/20 16:00 97.7 98 22 159/89 (112) 94 06/15/20 16:00 86 Height (Feet): 5 Height (Inches): 9.00 Weight (Pounds): 125 HEENT: mucous membranes moist Respiratory/Chest: crackles/rales, other - oxygen by rebreathing mask Cardiovascular: tachycardia Abdomen: soft, non tender Extremities: no edema Neurologic/Psychiatric: unresponsiveness Microbiology Date/Time Source Procedure Growth Status 06/15/20 11:25 Urine,Clean Catch Urine Culture - Preliminary NO GROWTH AFTER 24 HOURS Resulted Laboratory Tests Test 06/16/20 11:45 Arterial Blood pH 7.463 (7.350-7.450) Arterial Blood Partial Pressure CO2 33.2 mmHg (35.0-45.0) L Arterial Blood Partial Pressure O2 62.9 mmHg (75.0-100.0) L Arterial Blood HCO3 23.2 mmol/L (22.0-26.0) Arterial Blood Oxygen Saturation 92.8 % (95-100) L Arterial Blood Base Excess 0.2 (-2-2) Mark Test Positive Current Medications Medications (Trade) Dose Ordered Sig/Daniele Route PRN Reason Start Time Stop Time Status Last Admin Dose Admin Acetaminophen (Tylenol) 650 mg Q4H PRN ORAL Mild Pain (Pain Scale 1-3) 06/13/20 21:45 07/13/20 21:44 06/14/20 10:05 Ceftriaxone Sodium 1 gm/ Dextrose 55 ml @ 110 mls/hr Q24H IVPB 06/14/20 16:00 06/21/20 15:59 06/15/20 15:13 Clopidogrel Bisulfate (Plavix) 75 mg DAILY ORAL 06/14/20 09:00 07/14/20 08:59 06/16/20 09:13 Haloperidol Lactate (Haldol) 5 mg Q6H PRN IM Agitation 06/14/20 14:45 07/29/20 14:44 06/16/20 11:16 Heparin Sodium (Porcine) (Heparin 5000 units/ml) 5,000 units EVERY 12 HOURS SUBQ 06/14/20 09:00 07/29/20 08:59 06/16/20 09:14 Lorazepam (Ativan) 1 mg Q6H PRN ORAL For Anxiety 06/16/20 10:00 06/23/20 09:59 06/16/20 10:11 Olanzapine (ZyPREXA) 5 mg BEDTIME ORAL 06/14/20 21:00 07/29/20 20:59 06/15/20 20:50 Potassium Chloride (K-Dur) 20 meq DAILY ORAL 06/14/20 12:15 09/12/20 12:14 06/16/20 09:13 Gabriel Foley MD Jun 16, 2020 13:06
--- NOTE | 2020-06-16 13:21 | Diagnostic Imaging Report ---
Indication: Cough Technique: One view of the chest Comparison: 06/13/2020 Findings: Small patchy right lung infiltrates infiltrate in the interim. The pleural spaces and left lung are clear. Heart size is normal. Impression: Small patchy right lung infiltrates, developing since exam of 3 days prior.
[2020-06-16] MEDS: cefTRIAXone 1 GM in D5W 55 ML IVPB SCH (15:59)
[2020-06-16] MEDS: Acetaminophen 650 MG SUPP RECTAL PRN (16:00)
--- NOTE | 2020-06-16 16:29 | Diagnostic Imaging Report ---
Indication: Trauma, mandible fracture, pain Technique: 4 views of the mandible Comparison: CT scan dated 06/14/2020 Findings: There is a fracture of the right mandibular angle, adjacent to the only remaining tooth. Surgical hardware is seen in the anterior central and left mandible, and in the right mandibular neck. No other fractures are demonstrated. Impression: Left mandibular fracture and postsurgical changes, confirming findings reported on prior CT scan
--- NOTE | 2020-06-16 17:00 | Consultation ---
DATE OF CONSULTATION: 06/16/2020 PULMONARY CONSULTATION/ICU CONSULTATION CONSULTING PHYSICIAN: Chandrakant Singh MD HISTORY OF PRESENT ILLNESS: This is a 74-year-old male with a history of dementia who was brought to the hospital by his family after having had a syncopal episode. Patient states that he had been getting out of the tub, had a similar episode and fell backwards striking the left side of his head on the edge of the bed. Per ER reports, he was noted to be unconscious for a few seconds. The daughter witnessed the episode. He was brought to the hospital. He underwent a complete workup, which included a maxillofacial CT, which demonstrated fracture of the mandible. Patient required to be admitted. However, this morning, he is found to have worsening of respiratory status. He is more altered with secretions. He has been transferred to ICU for close monitoring. Patient in the hospital has been seen by Infectious Disease specialist as well as Psychiatry. Per psychiatrist, he has been diagnosed to have dementia, encephalopathy and given Zyprexa and Haldol. Ativan was discontinued. Per ID specialist, patient was found to have possible UTI and given Rocephin as well as repeat cultures were sent. His urine culture so far has been negative. Laboratory testing has shown no evidence of leukocytosis. There is mild hypokalemia. Negative troponin. At this time, patient is unable to provide further history. PAST MEDICAL HISTORY: As discussed above, notable for dementia, depression. REVIEW OF SYSTEMS: Unreliable. SOCIAL HISTORY: Lives at home with family. Per daughter, patient is normally able to walk without assistance however has had multiple falls. PHYSICAL EXAMINATION: GENERAL: Reveals elderly male. He has swelling of the left angle of the mandible. HEENT: Unremarkable. CHEST: Clear breath sounds bilaterally with upper airway secretions. ABDOMEN: Soft. HEART: Sounds are normal. EXTREMITIES: There is no edema. VITAL SIGNS: Blood pressure 120/70, heart rate 114, respirations 24, O2 saturation 98% on 2 L of oxygen. LABORATORY TESTING: As discussed above. Normal CBC and BMP. IMAGING: As discussed above. Patient underwent a chest x-ray today, which showed patchy lung infiltrates suspicious for pneumonia. IMPRESSION: 1. Right lung pneumonia, suspect aspiration. 2. Altered mental status. 3. Dementia. 4. Jaw fracture. 5. Status post fall. 6. Depression. DISCUSSION: Patient will benefit from broad-spectrum antibiotics. I would recommend keeping NPO and consideration of alternate methods of nutrition unless his mental status improves. Rocephin is adequate for now. Minimize sedation. Sitter or restraints per Psychiatry. We will follow carefully. Chandrakant Singh M.D. DR: YANCI JOB#: [id number] CC:
[2020-06-16] MEDS ORDERED: Varibar Thin Liquid powder 148gm MC PRN (17:15)
[2020-06-16] MEDS ORDERED: Varibar Honey 250ml MC PRN (17:15)
[2020-06-16] MEDS ORDERED: Varibar Nectar 240ml MC PRN (17:15)
[2020-06-16] MEDS ORDERED: Varibar Pudding 230ml MC PRN (17:15)
[2020-06-16 17:38] LABS: MEAN CORPUSCULAR VOLUME 89 FL (80-99); PLATELET COUNT 482 K/UL (150-450); RED BLOOD COUNT 4.74 M/UL (4.70-6.10); RED CELL DISTRIBUTION WIDTH 13.1 % (11.6-14.8)
[2020-06-16 17:42] LABS: WHITE BLOOD COUNT 25.4 K/UL (4.8-10.8)
[2020-06-16 18:01] LABS: ALANINE AMINOTRANSFERASE 20 U/L (12-78); ALBUMIN 2.9 G/DL (3.4-5.0); ALBUMIN/GLOBULIN RATIO 0.7 (1.0-2.7); ALKALINE PHOSPHATASE 73 U/L (46-116); ANION GAP 15 mmol/L (5-15); ASPARTATE AMINO TRANSFERASE 50 U/L (15-37); BLOOD UREA NITROGEN 12 mg/dL (7-18); CARBON DIOXIDE 25 MMOL/L (21-32); CHLORIDE 99 MMOL/L (98-107); CREATININE 1.2 MG/DL (0.55-1.30); POTASSIUM 3.7 MMOL/L (3.5-5.1); SODIUM 139 MMOL/L (136-145)
[2020-06-17] VITALS (11 sets, daily range): BP systolic 99–141; BP diastolic 51–90
[2020-06-17] MEDS: Heparin 5000 units/ml inj SUBQ SCH ×2 (09:00→20:23)
[2020-06-17 09:24] LABS: HEMATOCRIT 38.1 % (42.0-52.0); HEMOGLOBIN 12.8 G/DL (14.2-18.0); MEAN CORPUSCULAR VOLUME 89 FL (80-99); PLATELET COUNT 443 K/UL (150-450); RED BLOOD COUNT 4.27 M/UL (4.70-6.10); RED CELL DISTRIBUTION WIDTH 12.8 % (11.6-14.8); WHITE BLOOD COUNT 20.2 K/UL (4.8-10.8)
[2020-06-17 09:56] LABS: ALANINE AMINOTRANSFERASE 25 U/L (12-78); ALBUMIN 2.5 G/DL (3.4-5.0); ALBUMIN/GLOBULIN RATIO 0.5 (1.0-2.7); ALKALINE PHOSPHATASE 60 U/L (46-116); ANION GAP 9 mmol/L (5-15); ASPARTATE AMINO TRANSFERASE 52 U/L (15-37); BILIRUBIN,TOTAL 0.7 MG/DL (0.2-1.0); BLOOD UREA NITROGEN 20 mg/dL (7-18); CALCIUM 8.8 MG/DL (8.5-10.1); CARBON DIOXIDE 28 MMOL/L (21-32); CHLORIDE 103 MMOL/L (98-107); CREATININE 1.1 MG/DL (0.55-1.30); POTASSIUM 3.3 MMOL/L (3.5-5.1); SODIUM 140 MMOL/L (136-145)
--- NOTE | 2020-06-17 10:58 | General Progress Note ---
Subjective Allergies: Coded Allergies: ASPIRIN (Verified Allergy, Unknown, 06/13/20) Subjective non verabal doing better confused Objective Last 24 Hour Vital Signs Date Time Temp Pulse Resp B/P (MAP) Pulse Ox O2 Delivery O2 Flow Rate FiO2 06/17/20 07:00 94 35 116/70 (85) 06/17/20 06:00 91 29 107/51 (69) 06/17/20 05:00 95 29 99/60 (73) 06/17/20 04:00 Nasal Cannula 3.0 06/17/20 04:00 85 06/17/20 04:00 113 26 141/90 (107) 06/17/20 03:00 121 28 128/68 (88) 98 06/17/20 02:00 98 29 120/83 (95) 100 06/17/20 01:00 93 27 107/70 (82) 100 06/17/20 00:00 113 28 136/65 (88) 97 06/17/20 00:00 Nasal Cannula 3.0 06/16/20 23:00 94 25 120/75 (90) 100 06/16/20 22:00 84 21 123/63 (83) 100 06/16/20 21:00 85 25 119/65 (83) 100 06/16/20 20:00 Nasal Cannula 3.0 06/16/20 20:00 128 26 143/86 (105) 98 06/16/20 20:00 85 06/16/20 19:00 117 25 126/99 (108) 100 06/16/20 18:00 98 23 115/74 (88) 100 06/16/20 17:00 127 30 109/68 (82) 100 06/16/20 16:30 101.2 06/16/20 16:00 101.7 127 36 128/77 (94) 100 06/16/20 15:00 114 27 119/73 (88) 98 06/16/20 14:08 118 33 125/81 (96) 100 06/16/20 13:37 123 06/16/20 13:09 123 30 119/78 (92) 100 06/16/20 12:35 153 26 86 06/16/20 12:30 123 06/16/20 12:30 97.8 126 33 137/88 (104) 100 06/16/20 12:00 97.8 143 26 154/115 (128) 86 Intake and Output 06/16/20 06/17/20 19:00 07:00 Intake Total 55 ml Output Total 165 ml Balance -110 ml IV Total 55 ml Output Urine Total 165 ml # Voids 210 # Bowel Movements 2 Laboratory Tests 06/16/20 11:45: Arterial Blood pH 7.463H, Arterial Blood Partial Pressure CO2 33.2L, Arterial Blood Partial Pressure O2 62.9L, Arterial Blood HCO3 23.2, Arterial Blood Oxygen Saturation 92.8L, Arterial Blood Base Excess 0.2, Mark Test Positive 06/16/20 17:14: White Blood Count 25.4*H, Red Blood Count 4.74, Hemoglobin 14.0L, Hematocrit 42.0, Mean Corpuscular Volume 89, Mean Corpuscular Hemoglobin 29.6, Mean Corpuscular Hemoglobin Concent 33.4, Red Cell Distribution Width 13.1, Platelet Count 482H, Mean Platelet Volume 6.4L, Neutrophils (%) (Auto) , Lymphocytes (%) (Auto) , Monocytes (%) (Auto) , Eosinophils (%) (Auto) , Basophils (%) (Auto) , Differential Total Cells Counted 100, Neutrophils % (Manual) 86H, Lymphocytes % (Manual) 6L, Monocytes % (Manual) 6, Eosinophils % (Manual) 0, Basophils % (Manual) 0, Band Neutrophils 2, Platelet Estimate IncreasedH, Platelet Morphology Normal, Red Blood Cell Morphology Normal, Sodium Level 139, Potassium Level 3.7, Chloride Level 99, Carbon Dioxide Level 25, Anion Gap 15, Blood Urea Nitrogen 12, Creatinine 1.2, Estimat Glomerular Filtration Rate > 60, Glucose Level 113H, Calcium Level 9.0, Total Bilirubin 1.0, Aspartate Amino Transf (AST/SGOT) 50H, Alanine Aminotransferase (ALT/SGPT) 20, Alkaline Phosphatase 73, Troponin I 0.151H, Total Protein 6.8, Albumin 2.9L, Globulin 3.9, Albumin/Globulin Ratio 0.7L 06/17/20 08:55: White Blood Count 20.2H, Red Blood Count 4.27L, Hemoglobin 12.8L, Hematocrit 38.1L, Mean Corpuscular Volume 89, Mean Corpuscular Hemoglobin 30.0, Mean Corpuscular Hemoglobin Concent 33.5, Red Cell Distribution Width 12.8, Platelet Count 443, Mean Platelet Volume 6.6, Neutrophils (%) (Auto) , Lymphocytes (%) (Auto) , Monocytes (%) (Auto) , Eosinophils (%) (Auto) , Basophils (%) (Auto) , Neutrophils % (Manual) [Pending], Lymphocytes % (Manual) [Pending], Platelet Estimate [Pending], Platelet Morphology [Pending], Sodium Level 140, Potassium Level 3.3L, Chloride Level 103, Carbon Dioxide Level 28, Anion Gap 9, Blood Urea Nitrogen 20H, Creatinine 1.1, Estimat Glomerular Filtration Rate > 60, Glucose Level 107H, Calcium Level 8.8, Total Bilirubin 0.7, Aspartate Amino Transf (AST/SGOT) 52H, Alanine Aminotransferase (ALT/SGPT) 25, Alkaline Phosphatase 60, Total Protein 7.6, Albumin 2.5L, Globulin 5.1, Albumin/Globulin Ratio 0.5L Height (Feet): 5 Height (Inches): 9.00 Weight (Pounds): 125 General Appearance: alert Neck: non-tender Cardiovascular: regular rhythm Respiratory/Chest: lungs clear Extremities: non-tender Assessment/Plan Status: fever Assessment/Plan: 1 uti 2 fever 3 aloc 4 dementia 5 fall 6 failure of thrive 7 ac cardio-pulmonary arrest 8 old mandible fracture transfer to icu check abg cxr dw ed dr parks called cardio dc ivf cont iv abx dw charge nurse dw dr wray add anerobic coverage Jakob Munoz MD Jun 17, 2020 10:58
--- NOTE | 2020-06-17 10:59 | Infectious Diseases Prog Note ---
Assessment/Plan Assessment/Plan antibiotics : ceftriaxone A 1. Possible urinary tract infection. 2. Dementia. 3. Depression. 4. History of mandibular fracture status post surgery. 5. leucocytosis improving P 1. continue ceftriaxone 2. start flagyl 3. will follow up cultures Subjective Allergies: Coded Allergies: ASPIRIN (Verified Allergy, Unknown, 06/13/20) Objective Last 24 Hour Vital Signs Date Time Temp Pulse Resp B/P (MAP) Pulse Ox O2 Delivery O2 Flow Rate FiO2 06/17/20 07:00 94 35 116/70 (85) 06/17/20 06:00 91 29 107/51 (69) 06/17/20 05:00 95 29 99/60 (73) 06/17/20 04:00 Nasal Cannula 3.0 06/17/20 04:00 85 06/17/20 04:00 113 26 141/90 (107) 06/17/20 03:00 121 28 128/68 (88) 98 06/17/20 02:00 98 29 120/83 (95) 100 06/17/20 01:00 93 27 107/70 (82) 100 06/17/20 00:00 113 28 136/65 (88) 97 06/17/20 00:00 Nasal Cannula 3.0 06/16/20 23:00 94 25 120/75 (90) 100 06/16/20 22:00 84 21 123/63 (83) 100 06/16/20 21:00 85 25 119/65 (83) 100 06/16/20 20:00 Nasal Cannula 3.0 06/16/20 20:00 128 26 143/86 (105) 98 06/16/20 20:00 85 06/16/20 19:00 117 25 126/99 (108) 100 06/16/20 18:00 98 23 115/74 (88) 100 06/16/20 17:00 127 30 109/68 (82) 100 06/16/20 16:30 101.2 06/16/20 16:00 101.7 127 36 128/77 (94) 100 06/16/20 15:00 114 27 119/73 (88) 98 06/16/20 14:08 118 33 125/81 (96) 100 06/16/20 13:37 123 06/16/20 13:09 123 30 119/78 (92) 100 06/16/20 12:35 153 26 86 06/16/20 12:30 123 06/16/20 12:30 97.8 126 33 137/88 (104) 100 06/16/20 12:00 97.8 143 26 154/115 (128) 86 Height (Feet): 5 Height (Inches): 9.00 Weight (Pounds): 125 Respiratory/Chest: lungs clear Cardiovascular: normal rate, regular rhythm, no gallop/murmur Abdomen: soft, non tender Extremities: no edema Microbiology Date/Time Source Procedure Growth Status 06/15/20 11:25 Urine,Clean Catch Urine Culture - Final NO GROWTH AFTER 48 HOURS Complete Laboratory Tests Test 06/16/20 11:45 06/16/20 17:14 06/17/20 08:55 Arterial Blood pH 7.463 (7.350-7.450) Arterial Blood Partial Pressure CO2 33.2 mmHg (35.0-45.0) L Arterial Blood Partial Pressure O2 62.9 mmHg (75.0-100.0) L Arterial Blood HCO3 23.2 mmol/L (22.0-26.0) Arterial Blood Oxygen Saturation 92.8 % (95-100) L Arterial Blood Base Excess 0.2 (-2-2) Mark Test Positive White Blood Count 25.4 K/UL (4.8-10.8) *H 20.2 K/UL (4.8-10.8) H Red Blood Count 4.74 M/UL (4.70-6.10) 4.27 M/UL (4.70-6.10) L Hemoglobin 14.0 G/DL (14.2-18.0) L 12.8 G/DL (14.2-18.0) L Hematocrit 42.0 % (42.0-52.0) 38.1 % (42.0-52.0) L Mean Corpuscular Volume 89 FL (80-99) 89 FL (80-99) Mean Corpuscular Hemoglobin 29.6 PG (27.0-31.0) 30.0 PG (27.0-31.0) Mean Corpuscular Hemoglobin Concent 33.4 G/DL (32.0-36.0) 33.5 G/DL (32.0-36.0) Red Cell Distribution Width 13.1 % (11.6-14.8) 12.8 % (11.6-14.8) Platelet Count 482 K/UL (150-450) H 443 K/UL (150-450) Mean Platelet Volume 6.4 FL (6.5-10.1) L 6.6 FL (6.5-10.1) Neutrophils (%) (Auto) % (45.0-75.0) % (45.0-75.0) Lymphocytes (%) (Auto) % (20.0-45.0) % (20.0-45.0) Monocytes (%) (Auto) % (1.0-10.0) % (1.0-10.0) Eosinophils (%) (Auto) % (0.0-3.0) % (0.0-3.0) Basophils (%) (Auto) % (0.0-2.0) % (0.0-2.0) Differential Total Cells Counted 100 Neutrophils % (Manual) 86 % (45-75) H Pending Lymphocytes % (Manual) 6 % (20-45) L Pending Monocytes % (Manual) 6 % (1-10) Eosinophils % (Manual) 0 % (0-3) Basophils % (Manual) 0 % (0-2) Band Neutrophils 2 % (0-8) Platelet Estimate Increased H Pending Platelet Morphology Normal Pending Red Blood Cell Morphology Normal Sodium Level 139 MMOL/L (136-145) 140 MMOL/L (136-145) Potassium Level 3.7 MMOL/L (3.5-5.1) 3.3 MMOL/L (3.5-5.1) L Chloride Level 99 MMOL/L (98-107) 103 MMOL/L (98-107) Carbon Dioxide Level 25 MMOL/L (21-32) 28 MMOL/L (21-32) Anion Gap 15 mmol/L (5-15) 9 mmol/L (5-15) Blood Urea Nitrogen 12 mg/dL (7-18) 20 mg/dL (7-18) H Creatinine 1.2 MG/DL (0.55-1.30) 1.1 MG/DL (0.55-1.30) Estimat Glomerular Filtration Rate > 60 mL/min (>60) > 60 mL/min (>60) Glucose Level 113 MG/DL (74-106) H 107 MG/DL (74-106) H Calcium Level 9.0 MG/DL (8.5-10.1) 8.8 MG/DL (8.5-10.1) Total Bilirubin 1.0 MG/DL (0.2-1.0) 0.7 MG/DL (0.2-1.0) Aspartate Amino Transf (AST/SGOT) 50 U/L (15-37) H 52 U/L (15-37) H Alanine Aminotransferase (ALT/SGPT) 20 U/L (12-78) 25 U/L (12-78) Alkaline Phosphatase 73 U/L (46-116) 60 U/L (46-116) Troponin I 0.151 ng/mL (0.000-0.056) Total Protein 6.8 G/DL (6.4-8.2) 7.6 G/DL (6.4-8.2) Albumin 2.9 G/DL (3.4-5.0) L 2.5 G/DL (3.4-5.0) L Globulin 3.9 g/dL 5.1 g/dL Albumin/Globulin Ratio 0.7 (1.0-2.7) L 0.5 (1.0-2.7) L Current Medications Medications (Trade) Dose Ordered Sig/Daniele Route PRN Reason Start Time Stop Time Status Last Admin Dose Admin Acetaminophen (Tylenol) 650 mg Q4H PRN ORAL Mild Pain (Pain Scale 1-3) 06/13/20 21:45 07/13/20 21:44 06/14/20 10:05 Acetaminophen (Tylenol) 650 mg Q6H PRN RECTAL Temp >100.5 06/16/20 15:43 07/16/20 15:42 06/16/20 16:00 Barium Sulfate (Varibar Honey) 250 ml NOW PRN MC RAD 06/16/20 17:15 06/19/20 17:09 Barium Sulfate (Varibar [place]) 240 ml NOW PRN MC RAD 06/16/20 17:15 06/19/20 17:09 Barium Sulfate (Varibar Pudding) 230 ml NOW PRN RAD 06/16/20 17:15 06/19/20 17:09 Barium Sulfate (Varibar Thin Liquid powder) 148 gm NOW PRN RAD 06/16/20 17:15 06/19/20 17:09 Ceftriaxone Sodium 1 gm/ Dextrose 55 ml @ 110 mls/hr Q24H IVPB 06/14/20 16:00 06/21/20 15:59 06/16/20 15:59 Clopidogrel Bisulfate (Plavix) 75 mg DAILY ORAL 06/14/20 09:00 07/14/20 08:59 06/16/20 09:13 Haloperidol Lactate (Haldol) 5 mg Q6H PRN IM Agitation 06/14/20 14:45 07/29/20 14:44 06/16/20 11:16 Heparin Sodium (Porcine) (Heparin 5000 units/ml) 5,000 units EVERY 12 HOURS SUBQ 06/14/20 09:00 07/29/20 08:59 06/16/20 20:53 Olanzapine (ZyPREXA) 5 mg BEDTIME ORAL 06/14/20 21:00 07/29/20 20:59 06/15/20 20:50 Viviane Botello MD Jun 17, 2020 10:59
[2020-06-17] MEDS ORDERED: traMADol 50mg tab ORAL PRN (11:15)
[2020-06-17] MEDS: metroNIDAZOLE 500mg tab ORAL SCH ×3 (11:15→23:26)
--- NOTE | 2020-06-17 15:39 | Cardiology Progress Note ---
Assessment/Plan Assessment/Plan The patient is seen and examined, full consult note is dictated. Objective Last 24 Hour Vital Signs Date Time Temp Pulse Resp B/P (MAP) Pulse Ox O2 Delivery O2 Flow Rate FiO2 06/17/20 12:00 Nasal Cannula 3.0 06/17/20 12:00 98.2 83 16 109/68 (82) 100 06/17/20 08:00 Nasal Cannula 3.0 06/17/20 08:00 110 06/17/20 07:00 94 35 116/70 (85) 06/17/20 06:00 91 29 107/51 (69) 06/17/20 05:00 95 29 99/60 (73) 06/17/20 04:00 Nasal Cannula 3.0 06/17/20 04:00 85 06/17/20 04:00 113 26 141/90 (107) 06/17/20 03:00 121 28 128/68 (88) 98 06/17/20 02:00 98 29 120/83 (95) 100 06/17/20 01:00 93 27 107/70 (82) 100 06/17/20 00:00 113 28 136/65 (88) 97 06/17/20 00:00 Nasal Cannula 3.0 06/16/20 23:00 94 25 120/75 (90) 100 06/16/20 22:00 84 21 123/63 (83) 100 06/16/20 21:00 85 25 119/65 (83) 100 06/16/20 20:00 Nasal Cannula 3.0 06/16/20 20:00 128 26 143/86 (105) 98 06/16/20 20:00 85 06/16/20 19:00 117 25 126/99 (108) 100 06/16/20 18:00 98 23 115/74 (88) 100 06/16/20 17:00 127 30 109/68 (82) 100 06/16/20 16:30 101.2 06/16/20 16:00 101.7 127 36 128/77 (94) 100 Intake and Output 06/16/20 06/17/20 19:00 07:00 Intake Total 55 ml Output Total 165 ml Balance -110 ml IV Total 55 ml Output Urine Total 165 ml # Voids 210 # Bowel Movements 2 Laboratory Tests Test 06/16/20 17:14 06/17/20 08:55 White Blood Count 25.4 K/UL (4.8-10.8) *H 20.2 K/UL (4.8-10.8) H Red Blood Count 4.74 M/UL (4.70-6.10) 4.27 M/UL (4.70-6.10) L Hemoglobin 14.0 G/DL (14.2-18.0) L 12.8 G/DL (14.2-18.0) L Hematocrit 42.0 % (42.0-52.0) 38.1 % (42.0-52.0) L Mean Corpuscular Volume 89 FL (80-99) 89 FL (80-99) Mean Corpuscular Hemoglobin 29.6 PG (27.0-31.0) 30.0 PG (27.0-31.0) Mean Corpuscular Hemoglobin Concent 33.4 G/DL (32.0-36.0) 33.5 G/DL (32.0-36.0) Red Cell Distribution Width 13.1 % (11.6-14.8) 12.8 % (11.6-14.8) Platelet Count 482 K/UL (150-450) H 443 K/UL (150-450) Mean Platelet Volume 6.4 FL (6.5-10.1) L 6.6 FL (6.5-10.1) Neutrophils (%) (Auto) % (45.0-75.0) % (45.0-75.0) Lymphocytes (%) (Auto) % (20.0-45.0) % (20.0-45.0) Monocytes (%) (Auto) % (1.0-10.0) % (1.0-10.0) Eosinophils (%) (Auto) % (0.0-3.0) % (0.0-3.0) Basophils (%) (Auto) % (0.0-2.0) % (0.0-2.0) Differential Total Cells Counted 100 100 Neutrophils % (Manual) 86 % (45-75) H 83 % (45-75) H Lymphocytes % (Manual) 6 % (20-45) L 5 % (20-45) L Monocytes % (Manual) 6 % (1-10) 12 % (1-10) H Eosinophils % (Manual) 0 % (0-3) 0 % (0-3) Basophils % (Manual) 0 % (0-2) 0 % (0-2) Band Neutrophils 2 % (0-8) 0 % (0-8) Platelet Estimate Increased H Adequate Platelet Morphology Normal Normal Red Blood Cell Morphology Normal Normal Sodium Level 139 MMOL/L (136-145) 140 MMOL/L (136-145) Potassium Level 3.7 MMOL/L (3.5-5.1) 3.3 MMOL/L (3.5-5.1) L Chloride Level 99 MMOL/L (98-107) 103 MMOL/L (98-107) Carbon Dioxide Level 25 MMOL/L (21-32) 28 MMOL/L (21-32) Anion Gap 15 mmol/L (5-15) 9 mmol/L (5-15) Blood Urea Nitrogen 12 mg/dL (7-18) 20 mg/dL (7-18) H Creatinine 1.2 MG/DL (0.55-1.30) 1.1 MG/DL (0.55-1.30) Estimat Glomerular Filtration Rate > 60 mL/min (>60) > 60 mL/min (>60) Glucose Level 113 MG/DL (74-106) H 107 MG/DL (74-106) H Calcium Level 9.0 MG/DL (8.5-10.1) 8.8 MG/DL (8.5-10.1) Total Bilirubin 1.0 MG/DL (0.2-1.0) 0.7 MG/DL (0.2-1.0) Aspartate Amino Transf (AST/SGOT) 50 U/L (15-37) H 52 U/L (15-37) H Alanine Aminotransferase (ALT/SGPT) 20 U/L (12-78) 25 U/L (12-78) Alkaline Phosphatase 73 U/L (46-116) 60 U/L (46-116) Troponin I 0.151 ng/mL (0.000-0.056) Total Protein 6.8 G/DL (6.4-8.2) 7.6 G/DL (6.4-8.2) Albumin 2.9 G/DL (3.4-5.0) L 2.5 G/DL (3.4-5.0) L Globulin 3.9 g/dL 5.1 g/dL Albumin/Globulin Ratio 0.7 (1.0-2.7) L 0.5 (1.0-2.7) L Microbiology Date/Time Source Procedure Growth Status 06/15/20 11:25 Urine,Clean Catch Urine Culture - Final NO GROWTH AFTER 48 HOURS Complete Jimbo Kebede MD Jun 17, 2020 15:39
--- NOTE | 2020-06-17 17:15 | Consultation ---
DATE OF CONSULTATION: 06/17/2020 CARDIOLOGY CONSULTATION CONSULTING PHYSICIAN: Jimbo Kebede MD. REFERRING PHYSICIAN: Jakob Munoz MD. REASON FOR CONSULTATION: Management of tachycardia. HISTORY OF PRESENT ILLNESS: The patient is a very unfortunate 74-year-old gentleman who is nonverbal, who presents to the hospital with complaints of syncope and head trauma. Apparently, the patient was getting out of the tub and had lost consciousness and had a level ground fall, struck his left side of the head on the edge of the tub. Apparently, the daughter witnessed the whole event. At the time of arrival to the emergency department, he was awake and alert. His initial blood pressure was 146/83 mmHg and heart rate was 95. His 12-lead electrocardiogram was significant for sinus tachycardia, rate of 138. The patient was admitted. The patient had blood test in the emergency department, which showed electrolyte abnormality with high sodium level of 143 and low potassium level at 3.2 with associated creatinine of 1.2, bicarbonate 29. Troponin I level was within normal limits at 0.020. Chest x-ray showed no acute cardiopulmonary disease. The patient was admitted to the hospital for altered level of consciousness, status post fall, and possibility of syncope. Cardiology consultation was made at the request of Dr. Munoz. PAST MEDICAL HISTORY: None. ALLERGIES: Aspirin. FAMILY HISTORY: No premature coronary artery disease in the first-degree relatives. MEDICATIONS: List of medications at home, none. SOCIAL HISTORY: There is no history of tobacco, alcohol, or illicit drug use. REVIEW OF SYSTEMS: HEENT: Denies any diplopia or blurred vision. Positive for headache at the site of trauma. CONSTITUTIONAL: Denies any fever, chills, night sweats, or weight loss. CARDIOVASCULAR: Denies any chest pain, shortness of breath, PND, orthopnea, or leg swelling. PULMONARY: Denies any cough, hemoptysis, or wheezing GASTROINTESTINAL: Denies any nausea, vomiting, diarrhea, constipation, abdominal pain, or GI bleed. GENITOURINARY: Denies any hematuria, dysuria, or incontinence. NEUROLOGIC: Denies any motor dysfunction, sensory deficit, or altered speech. PHYSICAL EXAMINATION: VITAL SIGNS: Blood pressure at time of arrival to the hospital 146/83 mmHg, heart rate of 95, respirations 16, temperature 97.5 degrees Fahrenheit. O2 saturation 100% on room air. GENERAL: The patient is a very unfortunate 74-year-old male, in no apparent respiratory distress. HEENT: Atraumatic and normocephalic. Anicteric. Pupils are equal, round, and reactive to light and accommodation. A 2 cm subcutaneous hematoma on the left temporal scalp. NECK: JVP less than 5 cm. No carotid bruit. CARDIOVASCULAR: Normal S1, S2. Regular rate and rhythm. Tachycardic. No murmurs, gallops, or rubs. LUNGS: Clear to auscultation bilaterally. ABDOMEN: Soft, nontender, nondistended. No hepatosplenomegaly. Positive bowel sounds. EXTREMITIES: No evidence of edema, clubbing, or cyanosis. LABORATORY FINDINGS: White blood cells of 10.1, hemoglobin of 13.3, hematocrit of 39.1, and platelet count 476,000. Chemistry - sodium 143, potassium 3.2, chloride 104, bicarbonate 29, BUN 14, creatinine 1.2. Glucose 104. Calcium is 9.0. Troponin I - #1, 0.02; #2, 0.15. ASSESSMENT AND PLAN: The patient is a very unfortunate 74-year-old gentleman seen in Cardiology consultation. 1. Sinus tachycardia. This is most likely due to intravascular volume depletion as the patient has contraction alkalosis. Also evidence for free water deficit as the serum sodium level is elevated. I would consider hypotonic hydration. We will obtain 2D echocardiography for assessment of LV systolic and diastolic function. 2. Syncope, most likely due to hypovolemia versus neurocardiogenic, in the past 48 hours there has been no cardiac arrhythmias on the monitor. There is evidence of intravascular volume contraction. We would like to obtain carotid ultrasound to rule out carotid stenosis or vertebral steal syndrome. We will also obtain orthostatic vitals. 3. Right lung pneumonia, suspect aspiration, continue IV antibiotics. 4. Status post fall with jaw fracture. I would like to thank Dr. Munoz for the courtesy of this consultation. Jimbo Kebede M.D. DR: DANIELA JOB#: [id number] CC:
[2020-06-17] MEDS: cefTRIAXone 1 GM in D5W 55 ML IVPB SCH (17:21)
--- NOTE | 2020-06-17 19:10 | Diagnostic Imaging Report ---
EXAM: XR Abdomen, frontal supine View CLINICAL HISTORY: NGT TECHNIQUE: Portable frontal supine view of the abdomen/pelvis COMPARISON: No relevant prior studies available. FINDINGS: Gastrointestinal tract: Nonspecific bowel gas pattern. No dilation. Bones/joints: Moderate degenerative changes. Tubes, lines and devices: NG tube is not seen. IMPRESSION: NG tube is not seen.
[2020-06-17] MEDS ORDERED: Tubing IV Secondary IV ONE (21:29)
[2020-06-17] MEDS ORDERED: NS 275ml ONE (21:29)
--- NOTE | 2020-06-17 23:12 | Diagnostic Imaging Report ---
EXAM: XR Abdomen, frontal view CLINICAL HISTORY: NGT TECHNIQUE: Frontal view of the abdomen/pelvis COMPARISON: Same day at 1846 hrs. FINDINGS: Gastrointestinal tract: Dilatation of several loops of small bowel in left central abdomen, suggest ileus versus obstruction. Bones/joints: Moderate degenerative changes. Osteopenia. Tubes, lines and devices: Tip of NG tube is in the body the stomach. IMPRESSION: 1. Tip of NG tube is in the body the stomach. 2. Dilatation of several loops of small bowel in left central abdomen, suggest ileus versus obstruction.
[2020-06-17] MEDS: Haloperidol 5mg/ml Inj IM PRN (23:35)
--- NOTE | 2020-06-17 23:50 | Psychiatric Progress Note ---
Psychiatry Progress Note Psychiatry Progress Note Medications Current Medications Medications (Trade) Dose Ordered Sig/Daniele Route PRN Reason Start Time Stop Time Status Last Admin Dose Admin Acetaminophen (Tylenol) 650 mg Q4H PRN ORAL Mild Pain (Pain Scale 1-3) 06/13/20 21:45 07/13/20 21:44 06/14/20 10:05 Acetaminophen (Tylenol) 650 mg Q6H PRN RECTAL Temp >100.5 06/16/20 15:43 07/16/20 15:42 06/16/20 16:00 Barium Sulfate (Varibar Honey) 250 ml NOW PRN RAD 06/16/20 17:15 06/19/20 17:09 Barium Sulfate (Varibar [place]) 240 ml NOW PRN RAD 06/16/20 17:15 06/19/20 17:09 Barium Sulfate (Varibar Pudding) 230 ml NOW PRN RAD 06/16/20 17:15 06/19/20 17:09 Barium Sulfate (Varibar Thin Liquid powder) 148 gm NOW PRN RAD 06/16/20 17:15 06/19/20 17:09 Ceftriaxone Sodium 1 gm/ Dextrose 55 ml @ 110 mls/hr Q24H IVPB 06/14/20 16:00 06/21/20 15:59 06/17/20 17:21 Clopidogrel Bisulfate (Plavix) 75 mg DAILY ORAL 06/14/20 09:00 07/14/20 08:59 06/16/20 09:13 Haloperidol Lactate (Haldol) 5 mg Q6H PRN IM Agitation 06/14/20 14:45 07/29/20 14:44 06/17/20 23:35 Heparin Sodium (Porcine) (Heparin 5000 units/ml) 5,000 units EVERY 12 HOURS SUBQ 06/14/20 09:00 07/29/20 08:59 06/17/20 20:23 Metronidazole (Flagyl) 500 mg Q8HR ORAL 06/17/20 11:15 06/24/20 11:14 06/17/20 23:26 Olanzapine (ZyPREXA) 5 mg BEDTIME ORAL 06/14/20 21:00 07/29/20 20:59 06/17/20 23:26 Sodium Chloride 1,000 ml @ 75 mls/hr [id number] IV 06/17/20 17:00 07/17/20 16:59 06/17/20 17:21 Tramadol HCl (Ultram) 50 mg Q6H PRN ORAL Moderate Pain (Pain Scale 4-6) 06/17/20 11:15 06/24/20 11:14 06/17/20 23:35 Neurological/Psychiatric: Reports: depressed, emotional problems, weakness Allergies: Coded Allergies: ASPIRIN (Verified Allergy, Unknown, 06/13/20) Objective Data Height (Feet): 5 Height (Inches): 9.00 Weight (Pounds): 125 General Appearance: alert Additional Comments: waxing consciousness. Disoriented. Mood is anxious. Affect is flat. Thought process, there is a paucity of thought content. Thought content, no suicidal or homicidal ideation. Cognition is impaired. Insight and judgment is impaired. Assessment/Plan [place] I: ASSESSMENT: [place] I Dementia. Acute encephalopathy. [place] II Deferred. [place] III Multiple falls. [place] IV Low. [place] V 20. PLAN: 1. Zyprexa 5 mg. 2. Haldol p.r.n. 3. Discontinue Ativan IV and continue the p.o. 4. Discussed with the nurse. Status: fever Status Narrative ASSESSMENT: [place] I Dementia. Acute encephalopathy. [place] II Deferred. [place] III Multiple falls. [place] IV Low. [place] V 20. PLAN: 1. Zyprexa 5 mg. 2. Haldol p.r.n. 3. Discontinue Ativan IV and continue the p.o. 4. Discussed with the nurse. Assessment/Plan: ASSESSMENT: [place] I Dementia. Acute encephalopathy. [place] II Deferred. [place] III Multiple falls. [place] IV Low. [place] V 20. PLAN: 1. Zyprexa 5 mg. 2. Haldol p.r.n. 3. Discontinue Ativan IV and continue the p.o. 4. Discussed with the nurse. Joni Del Rosario MD Jun 17, 2020 23:50
[2020-06-18] VITALS (7 sets, daily range): BP systolic 122–156; BP diastolic 65–82
[2020-06-18] MEDS: metroNIDAZOLE 500mg tab ORAL SCH ×3 (05:42→21:18)
[2020-06-18] MEDS: Heparin 5000 units/ml inj SUBQ SCH ×2 (08:53→21:20)
--- NOTE | 2020-06-18 09:26 | Pulmonology Progress Note ---
Subjective ROS Limited/Unobtainable: Yes Interval Events: None new Constitutional: Reports: no symptoms, other - transferred to ICU; Denies: fever HEENT: Repors: no symptoms Respiratory: Reports: no symptoms Cardiovascular: Reports: no symptoms Gastrointestinal/Abdominal: Reports: no symptoms Genitourinary: Reports: no symptoms Allergies: Coded Allergies: ASPIRIN (Verified Allergy, Unknown, 06/13/20) Objective Last 24 Hour Vital Signs Date Time Temp Pulse Resp B/P (MAP) Pulse Ox O2 Delivery O2 Flow Rate FiO2 06/18/20 08:00 98.8 94 20 122/68 (86) 96 06/18/20 04:00 83 06/18/20 04:00 98.6 89 29 123/65 (84) 98 06/18/20 00:00 135 06/18/20 00:00 99.3 120 26 135/71 (92) 94 06/18/20 00:00 Nasal Cannula 3.0 06/17/20 20:00 131 06/17/20 20:00 98.2 133 16 134/80 (98) 96 06/17/20 20:00 Nasal Cannula 3.0 06/17/20 16:00 Nasal Cannula 3.0 06/17/20 16:00 130 06/17/20 16:00 98.4 122 16 131/74 (93) 96 06/17/20 15:26 130 06/17/20 12:00 Nasal Cannula 3.0 06/17/20 12:00 98.2 83 16 109/68 (82) 100 Intake and Output 06/17/20 06/18/20 19:00 07:00 Intake Total 112.5 ml 570 ml Output Total 325 ml 450 ml Balance -212.5 ml 120 ml Free Water 60 ml IV Total 112.5 ml 300 ml Tube Feeding 210 ml Output Urine Total 325 ml 450 ml General Appearance: no acute distress HEENT: normocephalic Respiratory: chest wall non-tender, lungs clear Cardiovascular: normal peripheral pulses, regular rhythm Abdomen: normal bowel sounds Microbiology Date/Time Source Procedure Growth Status 06/15/20 11:25 Urine,Clean Catch Urine Culture - Final NO GROWTH AFTER 48 HOURS Complete Laboratory Tests 06/17/20 16:15: Troponin I 0.026 Current Medications Medications (Trade) Dose Ordered Sig/Daniele Route PRN Reason Start Time Stop Time Status Last Admin Dose Admin Acetaminophen (Tylenol) 650 mg Q4H PRN ORAL Mild Pain (Pain Scale 1-3) 06/13/20 21:45 07/13/20 21:44 06/14/20 10:05 Acetaminophen (Tylenol) 650 mg Q6H PRN RECTAL Temp >100.5 06/16/20 15:43 07/16/20 15:42 06/16/20 16:00 Barium Sulfate (Varibar Honey) 250 ml NOW PRN MC RAD 06/16/20 17:15 06/19/20 17:09 Barium Sulfate (Varibar [place]) 240 ml NOW PRN MC RAD 06/16/20 17:15 06/19/20 17:09 Barium Sulfate (Varibar Pudding) 230 ml NOW PRN RAD 06/16/20 17:15 06/19/20 17:09 Barium Sulfate (Varibar Thin Liquid powder) 148 gm NOW PRN RAD 06/16/20 17:15 06/19/20 17:09 Ceftriaxone Sodium 1 gm/ Dextrose 55 ml @ 110 mls/hr Q24H IVPB 06/14/20 16:00 06/21/20 15:59 06/17/20 17:21 Clopidogrel Bisulfate (Plavix) 75 mg DAILY ORAL 06/14/20 09:00 07/14/20 08:59 06/18/20 08:52 Haloperidol Lactate (Haldol) 5 mg Q6H PRN IM Agitation 06/14/20 14:45 07/29/20 14:44 06/17/20 23:35 Heparin Sodium (Porcine) (Heparin 5000 units/ml) 5,000 units EVERY 12 HOURS SUBQ 06/14/20 09:00 07/29/20 08:59 06/18/20 08:53 Metronidazole (Flagyl) 500 mg Q8HR ORAL 06/17/20 11:15 06/24/20 11:14 06/18/20 05:42 Olanzapine (ZyPREXA) 5 mg BEDTIME ORAL 06/14/20 21:00 07/29/20 20:59 06/17/20 23:26 Sodium Chloride 1,000 ml @ 75 mls/hr [id number] IV 06/17/20 17:00 07/17/20 16:59 06/18/20 05:43 Tramadol HCl (Ultram) 50 mg Q6H PRN ORAL Moderate Pain (Pain Scale 4-6) 06/17/20 11:15 06/24/20 11:14 06/17/20 23:35 Assessment/Plan Assessment/Plan IMPRESSION: 1. Right lung pneumonia, suspect aspiration. 2. Altered mental status. 3. Dementia. 4. Jaw fracture. 5. Status post fall. 6. Depression. DISCUSSION: Continue broad-spectrum antibiotics. I would recommend keeping NPO and consideration of alternate methods of nutrition unless his mental status improves. Minimize sedation. Sitter or restraints per Psychiatry. I will follow carefully. Continue low flow O2 Chandrakant Singh M.D. Chandrakant Singh MD Jun 18, 2020 09:26
--- NOTE | 2020-06-18 12:49 | Infectious Diseases Prog Note ---
Assessment/Plan Assessment/Plan A; 1. Pneumonia 2. Dementia. 3. Depression. 4. History of mandibular fracture status post surgery. 5. Hypoxemia 6. Tachycardia PLAN: 1. Continue ceftriaxone & Flagyl 2. We will follow up cultures and adjust antibiotics accordingly Subjective ROS Limited/Unobtainable: Yes Constitutional: Denies: fever Gastrointestinal/Abdominal: Denies: diarrhea Allergies: Coded Allergies: ASPIRIN (Verified Allergy, Unknown, 06/13/20) Objective Last 24 Hour Vital Signs Date Time Temp Pulse Resp B/P (MAP) Pulse Ox O2 Delivery O2 Flow Rate FiO2 06/18/20 11:28 98.7 85 20 129/68 (88) 98 06/18/20 08:00 98.8 94 20 122/68 (86) 96 06/18/20 08:00 89 06/18/20 04:00 83 06/18/20 04:00 98.6 89 29 123/65 (84) 98 06/18/20 00:00 135 06/18/20 00:00 99.3 120 26 135/71 (92) 94 06/18/20 00:00 Nasal Cannula 3.0 06/17/20 20:00 131 06/17/20 20:00 98.2 133 16 134/80 (98) 96 06/17/20 20:00 Nasal Cannula 3.0 06/17/20 16:00 Nasal Cannula 3.0 06/17/20 16:00 130 06/17/20 16:00 98.4 122 16 131/74 (93) 96 06/17/20 15:26 130 Height (Feet): 5 Height (Inches): 9.00 Weight (Pounds): 125 HEENT: mucous membranes moist Respiratory/Chest: lungs clear Cardiovascular: normal rate Abdomen: soft, non tender, other - NG tube Extremities: no edema Neurologic/Psychiatric: other - sleeping Laboratory Tests Test 06/17/20 16:15 Troponin I 0.026 ng/mL (0.000-0.056) Current Medications Medications (Trade) Dose Ordered Sig/Daniele Route PRN Reason Start Time Stop Time Status Last Admin Dose Admin Acetaminophen (Tylenol) 650 mg Q4H PRN ORAL Mild Pain (Pain Scale 1-3) 06/13/20 21:45 07/13/20 21:44 06/14/20 10:05 Acetaminophen (Tylenol) 650 mg Q6H PRN RECTAL Temp >100.5 06/16/20 15:43 07/16/20 15:42 06/16/20 16:00 Barium Sulfate (Varibar Honey) 250 ml NOW PRN MC RAD 06/16/20 17:15 06/19/20 17:09 Barium Sulfate (Varibar [place]) 240 ml NOW PRN MC RAD 06/16/20 17:15 06/19/20 17:09 Barium Sulfate (Varibar Pudding) 230 ml NOW PRN MC RAD 06/16/20 17:15 06/19/20 17:09 Barium Sulfate (Varibar Thin Liquid powder) 148 gm NOW PRN MC RAD 06/16/20 17:15 06/19/20 17:09 Ceftriaxone Sodium 1 gm/ Dextrose 55 ml @ 110 mls/hr Q24H IVPB 06/14/20 16:00 06/21/20 15:59 06/17/20 17:21 Clopidogrel Bisulfate (Plavix) 75 mg DAILY ORAL 06/14/20 09:00 07/14/20 08:59 06/18/20 08:52 Haloperidol Lactate (Haldol) 5 mg Q6H PRN IM Agitation 06/14/20 14:45 07/29/20 14:44 06/17/20 23:35 Heparin Sodium (Porcine) (Heparin 5000 units/ml) 5,000 units EVERY 12 HOURS SUBQ 06/14/20 09:00 07/29/20 08:59 06/18/20 08:53 Metronidazole (Flagyl) 500 mg Q8HR ORAL 06/17/20 11:15 06/24/20 11:14 06/18/20 05:42 Olanzapine (ZyPREXA) 5 mg BEDTIME ORAL 06/14/20 21:00 07/29/20 20:59 06/17/20 23:26 Sodium Chloride 1,000 ml @ 75 mls/hr [id number] IV 06/17/20 17:00 07/17/20 16:59 06/18/20 05:43 Tramadol HCl (Ultram) 50 mg Q6H PRN ORAL Moderate Pain (Pain Scale 4-6) 06/17/20 11:15 06/24/20 11:14 06/17/20 23:35 Gabriel Foley MD Jun 18, 2020 12:49
--- NOTE | 2020-06-18 13:06 | General Progress Note ---
Subjective Date patient seen: Jun 18, 2020 Constitutional: Reports: weakness Allergies: Coded Allergies: ASPIRIN (Verified Allergy, Unknown, 06/13/20) Subjective non verabal doing better confused Objective Last 24 Hour Vital Signs Date Time Temp Pulse Resp B/P (MAP) Pulse Ox O2 Delivery O2 Flow Rate FiO2 06/18/20 11:28 98.7 85 20 129/68 (88) 98 06/18/20 08:00 98.8 94 20 122/68 (86) 96 06/18/20 08:00 89 06/18/20 04:00 83 06/18/20 04:00 98.6 89 29 123/65 (84) 98 06/18/20 00:00 135 06/18/20 00:00 99.3 120 26 135/71 (92) 94 06/18/20 00:00 Nasal Cannula 3.0 06/17/20 20:00 131 06/17/20 20:00 98.2 133 16 134/80 (98) 96 06/17/20 20:00 Nasal Cannula 3.0 06/17/20 16:00 Nasal Cannula 3.0 06/17/20 16:00 130 06/17/20 16:00 98.4 122 16 131/74 (93) 96 06/17/20 15:26 130 Intake and Output 06/17/20 06/18/20 19:00 07:00 Intake Total 112.5 ml 570 ml Output Total 325 ml 450 ml Balance -212.5 ml 120 ml Free Water 60 ml IV Total 112.5 ml 300 ml Tube Feeding 210 ml Output Urine Total 325 ml 450 ml Laboratory Tests 06/17/20 16:15: Troponin I 0.026 Height (Feet): 5 Height (Inches): 9.00 Weight (Pounds): 125 General Appearance: combative Neck: non-tender, supple Cardiovascular: regular rhythm Respiratory/Chest: rhonchi - bilaterally Abdomen: non tender, soft Genitourinary/Rectal: normal genital exam Extremities: non-tender Neurologic: motor weakness Assessment/Plan Status: fever Assessment/Plan: 1 uti 2 fever 3 aloc 4 dementia 5 fall 6 failure of thrive 7 ac cardio-pulmonary arrest 8 old mandible fracture 9 dysphasia tolerating ng tube feeding aspiration precaution dc ivf cont iv abx dw charge nurse dw dtr update her about his condition and plan Jakob Munoz MD Jun 18, 2020 13:06
[2020-06-18] MEDS: cefTRIAXone 1 GM in D5W 55 ML IVPB SCH (17:10)
[2020-06-18] MEDS ORDERED: Tubing IV Secondary IV ONE (21:03)
--- NOTE | 2020-06-18 22:55 | Diagnostic Imaging Report ---
EXAM: XR Abdomen, 2 Views CLINICAL HISTORY: NGT TECHNIQUE: Frontal view of the abdomen/pelvis with upright view of the abdomen. COMPARISON: No relevant prior studies available. FINDINGS: Intraperitoneal space: No free air. Gastrointestinal tract: Unremarkable. No dilation. Bones/joints: Unremarkable. Tubes, lines and devices: An enteric tube courses below the level of the diaphragm with the terminus overlying the expected region of the stomach. The side port is located just beyond the gastroesophageal junction. IMPRESSION: No acute findings in the abdomen or pelvis. The distal tip of and enteric tube overlies the expected region of the stomach.
[2020-06-19] VITALS (7 sets, daily range): BP systolic 113–142; BP diastolic 68–86
[2020-06-19] MEDS: metroNIDAZOLE 500mg tab ORAL SCH ×3 (06:45→21:19)
[2020-06-19] MEDS: Albuterol/Ipratropium 3ml neb HHN PRN (07:35)
[2020-06-19] MEDS: Heparin 5000 units/ml inj SUBQ SCH ×2 (10:36→21:20)
--- NOTE | 2020-06-19 11:20 | Pulmonology Progress Note ---
Subjective ROS Limited/Unobtainable: Yes Interval Events: None new; appears congested byt CXR clear of infiltrates Constitutional: Denies: fever HEENT: Repors: no symptoms Respiratory: Reports: no symptoms Cardiovascular: Reports: no symptoms Gastrointestinal/Abdominal: Denies: diarrhea Genitourinary: Reports: no symptoms Allergies: Coded Allergies: ASPIRIN (Verified Allergy, Unknown, 06/13/20) Objective Last 24 Hour Vital Signs Date Time Temp Pulse Resp B/P (MAP) Pulse Ox O2 Delivery O2 Flow Rate FiO2 06/19/20 07:45 90 20 100 Nasal Cannula 2.0 87 20 97 06/19/20 07:33 87 20 97 Nasal Cannula 2.0 06/19/20 07:33 98.2 88 20 141/81 (101) 96 06/19/20 07:32 97 Nasal Cannula 2.0 28 06/19/20 04:00 97.8 97 18 127/72 (90) 97 06/19/20 03:32 96 Nasal Cannula 2.0 28 06/19/20 00:00 98.7 102 17 132/86 (101) 97 06/18/20 21:00 Nasal Cannula 2.0 06/18/20 20:00 98.7 108 16 123/80 (94) 99 06/18/20 17:15 98.6 86 20 156/82 (106) 99 06/18/20 15:00 98.5 111 20 150/80 (103) 98 06/18/20 12:00 105 06/18/20 11:28 98.7 85 20 129/68 (88) 98 Intake and Output 06/18/20 06/19/20 19:00 07:00 Intake Total 250 ml 1000 ml Output Total 125 ml 575 ml Balance 125 ml 425 ml Intake Oral 600 ml Free Water 50 ml 250 ml Tube Feeding 200 ml 150 ml Output Urine Total 125 ml 575 ml # Voids 1 3 # Bowel Movements 3 General Appearance: no acute distress HEENT: normocephalic Respiratory: chest wall non-tender, lungs clear Cardiovascular: normal peripheral pulses, regular rhythm Abdomen: normal bowel sounds Microbiology Date/Time Source Procedure Growth Status 06/19/20 07:00 Nasopharynx SARS-CoV-2 RdRp Gene Assay - Final Complete Current Medications Medications (Trade) Dose Ordered Sig/Daniele Route PRN Reason Start Time Stop Time Status Last Admin Dose Admin Acetaminophen (Tylenol) 650 mg Q4H PRN ORAL Mild Pain (Pain Scale 1-3) 06/13/20 21:45 07/13/20 21:44 06/14/20 10:05 Acetaminophen (Tylenol) 650 mg Q6H PRN RECTAL Temp >100.5 06/16/20 15:43 07/16/20 15:42 06/16/20 16:00 Albuterol/ Ipratropium (Albuterol/ Ipratropium) 3 ml Q4H PRN HHN Shortness of Breath 06/19/20 06:30 06/24/20 06:29 06/19/20 07:35 Barium Sulfate (Varibar Honey) 250 ml NOW PRN MC RAD 06/16/20 17:15 06/19/20 17:09 Barium Sulfate (Varibar [place]) 240 ml NOW PRN MC RAD 06/16/20 17:15 06/19/20 17:09 Barium Sulfate (Varibar Pudding) 230 ml NOW PRN RAD 06/16/20 17:15 06/19/20 17:09 Barium Sulfate (Varibar Thin Liquid powder) 148 gm NOW PRN MC RAD 06/16/20 17:15 06/19/20 17:09 Ceftriaxone Sodium 1 gm/ Dextrose 55 ml @ 110 mls/hr Q24H IVPB 06/14/20 16:00 06/21/20 15:59 06/18/20 17:10 Clopidogrel Bisulfate (Plavix) 75 mg DAILY ORAL 06/14/20 09:00 07/14/20 08:59 06/18/20 08:52 Haloperidol Lactate (Haldol) 5 mg Q6H PRN IM Agitation 06/14/20 14:45 07/29/20 14:44 06/17/20 23:35 Heparin Sodium (Porcine) (Heparin 5000 units/ml) 5,000 units EVERY 12 HOURS SUBQ 06/14/20 09:00 07/29/20 08:59 06/19/20 10:36 Metronidazole (Flagyl) 500 mg Q8HR ORAL 06/17/20 11:15 06/24/20 11:14 06/18/20 21:18 Olanzapine (ZyPREXA) 5 mg BEDTIME ORAL 06/14/20 21:00 07/29/20 20:59 06/18/20 21:18 Tramadol HCl (Ultram) 50 mg Q6H PRN ORAL Moderate Pain (Pain Scale 4-6) 06/17/20 11:15 06/24/20 11:14 06/17/20 23:35 Assessment/Plan Assessment/Plan IMPRESSION: 1. Pulmonary congestion; suspect difficulty with handling upper airway secretions; no pneumonia on CXR 2. Altered mental status. 3. Dementia. 4. Jaw fracture. 5. Status post fall. 6. Depression. DISCUSSION: Continue broad-spectrum antibiotics. I would recommend keeping NPO and consideration of alternate methods of nutrition unless his mental status improves. Minimize sedation. Sitter or restraints per Psychiatry. I will follow carefully. Continue low flow O2 Chandrakant Singh M.D. Chandrakant Singh MD Jun 19, 2020 11:20
--- NOTE | 2020-06-19 11:49 | Diagnostic Imaging Report ---
EXAM: XR Chest, 1 View CLINICAL HISTORY: SOB TECHNIQUE: Frontal view of the chest. COMPARISON: Chest radiograph on 06/16/2020 FINDINGS: Hardware: Enteric tube terminates in the region of the proximal stomach. Lungs/pleura: Similar patchy interstitial opacities in the right lung. No pleural effusion or pneumothorax. Heart/mediastinum: Atherosclerotic calcifications in the aorta. No cardiomegaly. Soft tissues: Unremarkable. Bones: No acute fracture. Upper abdomen: Normal. Other: Vascular calcifications in the right subclavian/axillary region. IMPRESSION: 1. Enteric tube terminates in the region of the proximal stomach. 2. Similar patchy interstitial opacities in the right lung which may represent chronic interstitial lung changes versus infectious/inflammatory process.
[2020-06-19] MEDS: Haloperidol 5mg/ml Inj IM PRN ×2 (12:31→19:47)
--- NOTE | 2020-06-19 14:03 | General Progress Note ---
Subjective Allergies: Coded Allergies: ASPIRIN (Verified Allergy, Unknown, 06/13/20) Subjective non verabal doing better confused Objective Last 24 Hour Vital Signs Date Time Temp Pulse Resp B/P (MAP) Pulse Ox O2 Delivery O2 Flow Rate FiO2 06/19/20 12:00 98.1 92 20 142/74 (96) 94 06/19/20 07:45 90 20 100 Nasal Cannula 2.0 87 20 97 06/19/20 07:33 87 20 97 Nasal Cannula 2.0 06/19/20 07:33 98.2 88 20 141/81 (101) 96 06/19/20 07:32 97 Nasal Cannula 2.0 28 06/19/20 04:00 97.8 97 18 127/72 (90) 97 06/19/20 03:32 96 Nasal Cannula 2.0 28 06/19/20 00:00 98.7 102 17 132/86 (101) 97 06/18/20 21:00 Nasal Cannula 2.0 06/18/20 20:00 98.7 108 16 123/80 (94) 99 06/18/20 17:15 98.6 86 20 156/82 (106) 99 06/18/20 15:00 98.5 111 20 150/80 (103) 98 Intake and Output 06/18/20 06/19/20 19:00 07:00 Intake Total 250 ml 1000 ml Output Total 125 ml 575 ml Balance 125 ml 425 ml Intake Oral 600 ml Free Water 50 ml 250 ml Tube Feeding 200 ml 150 ml Output Urine Total 125 ml 575 ml # Voids 1 3 # Bowel Movements 3 Height (Feet): 5 Height (Inches): 9.00 Weight (Pounds): 125 General Appearance: agitated Neck: supple Cardiovascular: regular rhythm Respiratory/Chest: lungs clear Abdomen: non tender, soft Extremities: non-tender Assessment/Plan Status: fever Assessment/Plan: 1 uti 2 fever 3 aloc 4 dementia 5 fall 6 failure of thrive 7 ac cardio-pulmonary arrest 8 old mandible fracture 9 dysphasia tolerating ng tube feeding aspiration precaution dc ivf cont iv abx dw charge nurse dw dtr update her about his condition and plan Jakob Munoz MD Jun 19, 2020 14:03
--- NOTE | 2020-06-19 14:38 | Cardiology Report ---
APPROVED REPORT EXAM: Two-dimensional and M-mode echocardiogram with Doppler and color Doppler. INDICATION Tachycardia M-Mode DIMENSIONS IVSd0.9 (0.7-1.1cm)Left Atrium (MM)3.1 (1.6-4.0cm) LVDd5.0 (3.5-5.6cm)Aortic Root3.2 (2.0-3.7cm) PWd0.9 (0.7-1.1cm)Aortic Cusp Exc.2.0 (1.5-2.0cm) IVSs1.6 cmEPSS0.4 (>1.0cm) LVDs3.2 (2.5-4.0cm) PWs1.3 cm <Conclusion> All of the images are taken from subcostal area due to pt's body habitus. Normal left ventricular chamber size, systolic function and wall motion. Left ventricular ejection fraction estimated to be 60-65 %. No evidence of left ventricular hypertrophy. Small posterior pericardial effusion. All other cardiac chamber sizes are within normal limits. Mild focal aortic valve sclerosis with adequate cusp excursion. Mildly thickened mitral valve leaflets with normal excursion. Mild mitral annulus and aortic root calcification. Normal tricuspid valve structure. IVC at normal size with slightly physiologic collapse. A color flow and spectral Doppler study was performed and revealed: Mild aortic regurgitation. Trace to mild mitral regurgitation. Mitral diastolic velocities suggest reduced left ventricular relaxation c/w mild diastolic dysfunction (Grade I). Mild tricuspid regurgitation. Tricuspid systolic velocities suggests peak right ventricular systolic pressure of 41 mmHg, consistent with mild pulmonary hypertension.
[2020-06-19] MEDS: cefTRIAXone 1 GM in D5W 55 ML IVPB SCH (16:29)
[2020-06-19] MEDS ORDERED: Tubing IV Secondary IV ONE (21:42)
[2020-06-19] MEDS ORDERED: NS 275ml ONE (21:42)
[2020-06-20] MEDS: Haloperidol 5mg/ml Inj IM PRN (02:35)
[2020-06-20] MEDS: Albuterol/Ipratropium 3ml neb HHN PRN ×2 (03:19→16:57)
[2020-06-20 03:37] VITALS: BP 117/62
[2020-06-20] MEDS: metroNIDAZOLE 500mg tab ORAL SCH (05:01)
[2020-06-20 08:00] VITALS: BP 112/70
[2020-06-20] MEDS: Heparin 5000 units/ml inj SUBQ SCH ×2 (08:55→21:59)
--- NOTE | 2020-06-20 10:09 | Pulmonology Progress Note ---
Subjective ROS Limited/Unobtainable: Yes Interval Events: None new; appears congested byt CXR clear of infiltrates Constitutional: Denies: fever HEENT: Repors: no symptoms Respiratory: Reports: no symptoms Cardiovascular: Reports: no symptoms Gastrointestinal/Abdominal: Denies: diarrhea Genitourinary: Reports: no symptoms Allergies: Coded Allergies: ASPIRIN (Verified Allergy, Unknown, 06/13/20) Objective Last 24 Hour Vital Signs Date Time Temp Pulse Resp B/P (MAP) Pulse Ox O2 Delivery O2 Flow Rate FiO2 06/20/20 09:00 Nasal Cannula 2.0 Nasal Cannula 2.0 06/20/20 08:23 94 Nasal Cannula 2.0 28 06/20/20 08:00 99.4 78 18 112/70 (84) 97 06/20/20 03:37 99.1 83 16 117/62 (80) 100 06/20/20 03:20 88 20 100 Nasal Cannula 2.0 84 20 98 06/19/20 23:32 98.6 87 18 141/68 (92) 100 06/19/20 20:47 Nasal Cannula 2.0 06/19/20 20:04 97.4 102 16 113/74 (87) 98 06/19/20 20:02 96 Nasal Cannula 2.0 28 06/19/20 16:00 98.0 94 20 129/72 (91) 98 06/19/20 12:00 98.1 92 20 142/74 (96) 94 Intake and Output 06/19/20 06/20/20 19:00 07:00 Intake Total 600 ml 200 ml Output Total 375 ml 350 ml Balance 225 ml -150 ml Free Water 250 ml 100 ml Tube Feeding 350 ml 100 ml Output Urine Total 375 ml 350 ml General Appearance: no acute distress HEENT: normocephalic Respiratory: chest wall non-tender, lungs clear Cardiovascular: normal peripheral pulses, regular rhythm Abdomen: normal bowel sounds Microbiology Date/Time Source Procedure Growth Status 06/19/20 07:00 Nasopharynx SARS-CoV-2 RdRp Gene Assay - Final Complete Current Medications Medications (Trade) Dose Ordered Sig/Daniele Route PRN Reason Start Time Stop Time Status Last Admin Dose Admin Acetaminophen (Tylenol) 650 mg Q4H PRN ORAL Mild Pain (Pain Scale 1-3) 06/13/20 21:45 07/13/20 21:44 06/14/20 10:05 Acetaminophen (Tylenol) 650 mg Q6H PRN RECTAL Temp >100.5 06/16/20 15:43 07/16/20 15:42 06/16/20 16:00 Albuterol/ Ipratropium (Albuterol/ Ipratropium) 3 ml Q4H PRN HHN Shortness of Breath 06/19/20 06:30 06/24/20 06:29 06/20/20 03:19 Ceftriaxone Sodium 1 gm/ Dextrose 55 ml @ 110 mls/hr Q24H IVPB 06/14/20 16:00 06/21/20 15:59 06/19/20 16:29 Clopidogrel Bisulfate (Plavix) 75 mg DAILY ORAL 06/14/20 09:00 07/14/20 08:59 06/20/20 08:54 Haloperidol Lactate (Haldol) 5 mg Q6H PRN IM Agitation 06/14/20 14:45 07/29/20 14:44 06/20/20 02:35 Heparin Sodium (Porcine) (Heparin 5000 units/ml) 5,000 units EVERY 12 HOURS SUBQ 06/14/20 09:00 07/29/20 08:59 06/20/20 08:55 Metronidazole (Flagyl) 500 mg Q8HR ORAL 06/17/20 11:15 06/24/20 11:14 06/20/20 05:01 Olanzapine (ZyPREXA) 5 mg BEDTIME ORAL 06/14/20 21:00 07/29/20 20:59 06/19/20 21:19 Tramadol HCl (Ultram) 50 mg Q6H PRN ORAL Moderate Pain (Pain Scale 4-6) 06/17/20 11:15 06/24/20 11:14 06/17/20 23:35 Assessment/Plan Assessment/Plan IMPRESSION: 1. Pulmonary congestion; suspect difficulty with handling upper airway secretions; no pneumonia on CXR 2. Altered mental status. 3. Dementia. 4. Jaw fracture. 5. Status post fall. 6. Depression. DISCUSSION: Continue broad-spectrum antibiotics. I would recommend keeping NPO and consideration of alternate methods of nutrition unless his mental status improves. Minimize sedation. Sitter or restraints per Psychiatry. I will follow carefully. Continue low flow O2 Hayden Cartwright Omar Syed MD Jun 20, 2020 10:09
--- NOTE | 2020-06-20 11:47 | Infectious Diseases Prog Note ---
Assessment/Plan Assessment/Plan antibiotics : ceftriaxone, flagyl A 1. pneumonia 2. Dementia. 3. Depression. 4. History of mandibular fracture status post surgery. 5. leucocytosis improving P 1. continue ceftriaxone, flagyl 2 more days 2. will follow up cultures Subjective ROS Limited/Unobtainable: Yes Allergies: Coded Allergies: ASPIRIN (Verified Allergy, Unknown, 06/13/20) Objective Last 24 Hour Vital Signs Date Time Temp Pulse Resp B/P (MAP) Pulse Ox O2 Delivery O2 Flow Rate FiO2 06/20/20 09:00 Nasal Cannula 2.0 Nasal Cannula 2.0 06/20/20 08:23 94 Nasal Cannula 2.0 28 06/20/20 08:00 99.4 78 18 112/70 (84) 97 06/20/20 03:37 99.1 83 16 117/62 (80) 100 06/20/20 03:20 88 20 100 Nasal Cannula 2.0 84 20 98 06/19/20 23:32 98.6 87 18 141/68 (92) 100 06/19/20 20:47 Nasal Cannula 2.0 06/19/20 20:04 97.4 102 16 113/74 (87) 98 06/19/20 20:02 96 Nasal Cannula 2.0 28 06/19/20 16:00 98.0 94 20 129/72 (91) 98 06/19/20 12:00 98.1 92 20 142/74 (96) 94 Height (Feet): 5 Height (Inches): 9.00 Weight (Pounds): 125 Respiratory/Chest: crackles/rales Cardiovascular: normal rate, regular rhythm, no gallop/murmur Abdomen: soft, non tender Extremities: no edema Microbiology Date/Time Source Procedure Growth Status 06/19/20 07:00 Nasopharynx SARS-CoV-2 RdRp Gene Assay - Final Complete Current Medications Medications (Trade) Dose Ordered Sig/Daniele Route PRN Reason Start Time Stop Time Status Last Admin Dose Admin Acetaminophen (Tylenol) 650 mg Q4H PRN ORAL Mild Pain (Pain Scale 1-3) 06/13/20 21:45 07/13/20 21:44 06/14/20 10:05 Acetaminophen (Tylenol) 650 mg Q6H PRN RECTAL Temp >100.5 06/16/20 15:43 07/16/20 15:42 06/16/20 16:00 Albuterol/ Ipratropium (Albuterol/ Ipratropium) 3 ml Q4H PRN HHN Shortness of Breath 06/19/20 06:30 06/24/20 06:29 06/20/20 03:19 Ceftriaxone Sodium 1 gm/ Dextrose 55 ml @ 110 mls/hr Q24H IVPB 06/14/20 16:00 06/24/20 15:59 06/19/20 16:29 Clopidogrel Bisulfate (Plavix) 75 mg DAILY ORAL 06/14/20 09:00 07/14/20 08:59 06/20/20 08:54 Haloperidol Lactate (Haldol) 5 mg Q6H PRN IM Agitation 06/14/20 14:45 07/29/20 14:44 06/20/20 02:35 Heparin Sodium (Porcine) (Heparin 5000 units/ml) 5,000 units EVERY 12 HOURS SUBQ 06/14/20 09:00 07/29/20 08:59 06/20/20 08:55 Metronidazole (Flagyl) 500 mg Q8HR ORAL 06/17/20 11:15 06/24/20 11:14 06/20/20 05:01 Olanzapine (ZyPREXA) 5 mg BEDTIME ORAL 06/14/20 21:00 07/29/20 20:59 06/19/20 21:19 Tramadol HCl (Ultram) 50 mg Q6H PRN ORAL Moderate Pain (Pain Scale 4-6) 06/17/20 11:15 06/24/20 11:14 06/17/20 23:35 Viviane Botello MD Jun 20, 2020 11:47
[2020-06-20 12:00] VITALS: BP 141/77
[2020-06-20] MEDS ORDERED: traMADol 50mg tab NG PRN (13:30)
[2020-06-20] MEDS: metroNIDAZOLE 500mg tab NG SCH ×2 (14:39→21:55)
[2020-06-20 16:00] VITALS: BP 146/92
--- NOTE | 2020-06-20 16:25 | General Progress Note ---
Subjective Allergies: Coded Allergies: ASPIRIN (Verified Allergy, Unknown, 06/13/20) Subjective non verabal congested confused pulling ng tube on restrains Objective Last 24 Hour Vital Signs Date Time Temp Pulse Resp B/P (MAP) Pulse Ox O2 Delivery O2 Flow Rate FiO2 06/20/20 12:00 98.4 96 18 141/77 (98) 98 06/20/20 09:00 Nasal Cannula 2.0 Nasal Cannula 2.0 06/20/20 08:23 94 Nasal Cannula 2.0 28 06/20/20 08:00 99.4 78 18 112/70 (84) 97 06/20/20 03:37 99.1 83 16 117/62 (80) 100 06/20/20 03:20 88 20 100 Nasal Cannula 2.0 84 20 98 06/19/20 23:32 98.6 87 18 141/68 (92) 100 06/19/20 20:47 Nasal Cannula 2.0 06/19/20 20:04 97.4 102 16 113/74 (87) 98 06/19/20 20:02 96 Nasal Cannula 2.0 28 Intake and Output 06/19/20 06/20/20 19:00 07:00 Intake Total 600 ml 250 ml Output Total 375 ml 350 ml Balance 225 ml -100 ml Free Water 250 ml 100 ml Tube Feeding 350 ml 150 ml Output Urine Total 375 ml 350 ml Height (Feet): 5 Height (Inches): 9.00 Weight (Pounds): 125 General Appearance: confused Neck: supple Cardiovascular: regular rhythm Respiratory/Chest: rhonchi - bilaterally Abdomen: non tender, soft Extremities: non-tender Assessment/Plan Status: fever Assessment/Plan: 1 uti 2 fever 3 aloc 4 dementia 5 fall 6 failure of thrive 7 ac cardio-pulmonary arrest 8 old mandible fracture 9 dysphasia 10 failure of thrive need peg katelin gonzalez tolerating ng tube feeding aspiration precaution dc ivf cont iv abx dw charge nurse dw dtr update her about his condition and plan Jakob Munoz MD Jun 20, 2020 16:25
[2020-06-20] MEDS: cefTRIAXone 1 GM in D5W 55 ML IVPB SCH (16:35)
[2020-06-20] MEDS: Albuterol/Ipratropium 3ml neb HHN SCH (19:28)
[2020-06-20 20:00] VITALS: BP 148/90
[2020-06-20] MEDS: Acetaminophen 650 MG SUPP RECTAL PRN (23:47)
[2020-06-21] VITALS: BP 139/87
[2020-06-21] MEDS: Haloperidol 5mg/ml Inj IM PRN ×3 (03:24→18:54)
[2020-06-21 04:00] VITALS: BP 144/79
--- NOTE | 2020-06-21 05:01 | Diagnostic Imaging Report ---
EXAM: XR Abdomen, 2 Views CLINICAL HISTORY: NGT TECHNIQUE: Frontal view of the abdomen/pelvis with upright view of the abdomen. COMPARISON: No relevant prior studies available. FINDINGS/IMPRESSION: Enteric feeding tube is looped in the distal esophagus. Repositioning and repeat radiograph are recommended. Moderate fecal retention, correlate for constipation. Nonobstructed bowel gas pattern. No large volume free intraperitoneal air. Hyperdense foci project over the right upper pole, correlate for nonobstructing calculi. Severe degenerative changes of the spine. Diffuse osseous demineralization.
[2020-06-21] MEDS: metroNIDAZOLE 500mg tab NG SCH ×3 (06:05→21:56)
--- NOTE | 2020-06-21 06:10 | Diagnostic Imaging Report ---
EXAM: XR Abdomen, 2 Views CLINICAL HISTORY: NGT TECHNIQUE: Frontal view of the abdomen/pelvis with upright view of the abdomen. COMPARISON: No relevant prior studies available. FINDINGS/IMPRESSION: Enteric feeding tube terminates in the stomach. Nonobstructed bowel gas pattern. No free intraperitoneal air. Small right pleural effusion. Atherosclerotic calcifications of the aorta. Degenerative changes of the spine.
--- NOTE | 2020-06-21 07:44 | Consultation ---
DATE OF CONSULTATION: 06/21/2020 CONSULTING PHYSICIAN: Ismael Kwon MD CHIEF COMPLAINT: Dysphagia. HISTORY OF PRESENT ILLNESS: Most of the history per chart. This is a 74-year-old male admitted to the hospital on 06/13/2020 after having a syncopal fall he was in the bathroom. He had actually jaw fracture. Apparently, daughter witnessed the whole thing. Since admission, patient has complications with possible aspiration pneumonia. At one point, patient was in ICU and now is back into the monitored bed. GI consultation was requested for evaluation of the G-tube placement. Currently, patient has an NG tube in place and getting feeding through that. According to the nurses, patient is agitated, keep pulling lines and NG tube, even though on the restraints. PAST MEDICAL HISTORY: Prior to discharge apparently patient had no prior medical problems. MEDICATIONS: Please see medication reconciliation list. ALLERGIES: To aspirin. SOCIAL HISTORY: There is no history of tobacco, alcohol, or drug abuse. REVIEW OF SYSTEMS: Limited. PAST SURGICAL HISTORY: Unknown. PHYSICAL EXAMINATION: VITAL SIGNS: Temperature T-max is 101.3, pulse is 114, respirations 24, blood pressure 144/79. HEENT: Normocephalic, atraumatic. Patient has evidence of fracture of the jaw. NG tube in place on the left nostril. Patient has a nasal on the right nostril. NECK: Supple. No evidence of obvious lymphadenopathy. CARDIOVASCULAR: Tachy. Regular rate. Plus S1-S2. LUNGS: Decreased breath sounds bilaterally and diffusely, right more than left on the supine exam. ABDOMEN: Soft, nontender. No rebound. No guarding. No peritoneal sign. EXTREMITIES: No cyanosis, no clubbing, no edema. NEUROLOGIC: Unable to obtain. LABORATORY DATA: White count after 06/17/2020 was 20,000, hemoglobin 12, hematocrit 38, platelet count is 443. Chem-7, sodium 140, potassium 3.3, BUN is 20, creatinine is 1.1. ASSESSMENT AND PLAN: This is a 74-year-old male with numerous medical problems after having a syncopal fall with a jaw fracture, now cannot swallow and needs a PEG placement. Plan to continue G-tube feeding today. Actually increase it to 55 from 50. Make him NPO after midnight tonight. Repeat labs for tomorrow including white count because the patient has fever and elevated white count according to the last blood draw. We will try to get a consent from the family for PEG and if patient is stable tomorrow, in the meantime does not have a fever, white count is stable, vital signs stable, we will plan to do the PEG tomorrow. I want to thank Dr. Munoz for this kind referral. Ismael Kwon M.D. DR: SHILA JOB#: [id number] CC: Jonathan Munoz M.D.; Fax#: [phone]
[2020-06-21 08:00] VITALS: BP 147/78
[2020-06-21] MEDS: Albuterol/Ipratropium 3ml neb HHN SCH ×3 (08:09→19:00)
[2020-06-21] MEDS: Acetaminophen 650 MG SUPP RECTAL PRN (09:16)
[2020-06-21] MEDS: Heparin 5000 units/ml inj SUBQ SCH ×2 (09:17→21:57)
--- NOTE | 2020-06-21 09:49 | Pulmonology Progress Note ---
Subjective ROS Limited/Unobtainable: Yes Interval Events: None new; appears congested but CXR clear of infiltrates Constitutional: Denies: fever HEENT: Repors: no symptoms Respiratory: Reports: no symptoms Cardiovascular: Reports: no symptoms Gastrointestinal/Abdominal: Denies: diarrhea Genitourinary: Reports: no symptoms Allergies: Coded Allergies: ASPIRIN (Verified Allergy, Unknown, 06/13/20) Objective Last 24 Hour Vital Signs Date Time Temp Pulse Resp B/P (MAP) Pulse Ox O2 Delivery O2 Flow Rate FiO2 06/21/20 08:15 100 20 99 Nasal Cannula 2.0 28 96 18 99 06/21/20 08:12 99 Nasal Cannula 2.0 28 06/21/20 08:00 102.3 100 24 147/78 (101) 99 06/21/20 04:00 98.5 86 24 144/79 (100) 95 06/21/20 00:45 99.7 06/21/20 00:45 99.7 114 24 99 06/21/20 00:00 101.3 120 24 139/87 (104) 98 06/20/20 21:00 Nasal Cannula 2.0 Nasal Cannula 2.0 06/20/20 20:00 99.7 116 24 148/90 (109) 98 06/20/20 19:38 120 20 100 Nasal Cannula 2.0 28 119 20 97 06/20/20 19:35 98 Nasal Cannula 2.0 28 06/20/20 16:57 86 20 97 Nasal Cannula 2.0 84 20 95 06/20/20 16:00 97.9 110 20 146/92 (110) 96 06/20/20 12:00 98.4 96 18 141/77 (98) 98 Intake and Output 06/20/20 06/21/20 19:00 07:00 Intake Total 675 ml 350 ml Balance 675 ml 350 ml Free Water 70 ml 250 ml IV Total 55 ml Tube Feeding 550 ml 100 ml # Voids 3 2 General Appearance: no acute distress HEENT: normocephalic Respiratory: chest wall non-tender, lungs clear Cardiovascular: normal peripheral pulses, regular rhythm Abdomen: normal bowel sounds Microbiology Date/Time Source Procedure Growth Status 06/19/20 07:00 Nasopharynx SARS-CoV-2 RdRp Gene Assay - Final Complete Current Medications Medications (Trade) Dose Ordered Sig/Daniele Route PRN Reason Start Time Stop Time Status Last Admin Dose Admin Acetaminophen (Tylenol) 650 mg Q4H PRN NG Mild Pain (Pain Scale 1-3) 06/20/20 13:30 07/13/20 21:44 Acetaminophen (Tylenol) 650 mg Q6H PRN RECTAL Temp >100.5 06/16/20 15:43 07/16/20 15:42 06/21/20 09:16 Albuterol/ Ipratropium (Albuterol/ Ipratropium) 3 ml Q4H PRN HHN Shortness of Breath 06/19/20 06:30 06/24/20 06:29 06/20/20 16:57 Albuterol/ Ipratropium (Albuterol/ Ipratropium) 3 ml TIDRT HHN 06/20/20 19:00 06/25/20 18:59 06/21/20 08:09 Ceftriaxone Sodium 1 gm/ Dextrose 55 ml @ 110 mls/hr Q24H IVPB 06/14/20 16:00 06/24/20 15:59 06/20/20 16:35 Clopidogrel Bisulfate (Plavix) 75 mg DAILY NG 06/21/20 09:00 07/14/20 08:59 06/21/20 09:16 Haloperidol Lactate (Haldol) 5 mg Q6H PRN IM Agitation 06/14/20 14:45 07/29/20 14:44 06/21/20 03:24 Heparin Sodium (Porcine) (Heparin 5000 units/ml) 5,000 units EVERY 12 HOURS SUBQ 06/14/20 09:00 07/29/20 08:59 06/21/20 09:17 Metronidazole (Flagyl) 500 mg Q8HR NG 06/20/20 14:00 06/24/20 11:14 06/21/20 06:05 Olanzapine (ZyPREXA) 5 mg BEDTIME NG 06/20/20 21:00 07/29/20 20:59 06/20/20 21:55 Tramadol HCl (Ultram) 50 mg Q6H PRN NG Moderate Pain (Pain Scale 4-6) 06/20/20 13:30 06/24/20 11:14 Assessment/Plan Assessment/Plan IMPRESSION: 1. Pulmonary congestion; suspect difficulty with handling upper airway secretions; no pneumonia on CXR 2. Altered mental status. 3. Dementia. 4. Jaw fracture. 5. Status post fall. 6. Depression. DISCUSSION: Continue broad-spectrum antibiotics. I would recommend keeping NPO and consideration of alternate methods of nutrition unless his mental status improves. Minimize sedation. Sitter or restraints per Psychiatry. I will follow carefully. Continue low flow O2 DC planning to ARU Chandrakant Singh M.D. Chandrakant Singh MD Jun 21, 2020 09:49
[2020-06-21 12:00] VITALS: BP 138/78
--- NOTE | 2020-06-21 13:32 | Diagnostic Imaging Report ---
Indication: Shortness of breath Technique: One view of the chest Comparison: 06/19/2020 Findings: Bilateral interstitial and possible patchy opacities appear somewhat increased from the previous exam. Stable satisfactory position of nasogastric tube. Normal heart size. Impression: Suspect increased interstitial and possible patchy airspace opacities bilaterally, may reflect worsening pneumonia. Correlate with clinical findings
[2020-06-21] MEDS ORDERED: Tubing IV Secondary IV ONE ×2 (14:22→14:24)
[2020-06-21] MEDS ORDERED: NS 275ml ONE ×2 (14:22→14:24)
--- NOTE | 2020-06-21 14:28 | Infectious Diseases Prog Note ---
Assessment/Plan Assessment/Plan antibiotics : ceftriaxone, flagyl A 1. pneumonia 2. Dementia. 3. Depression. 4. History of mandibular fracture status post surgery. 5. leucocytosis improving P 1. continue ceftriaxone, flagyl 1 more day 2. will follow up cultures Subjective ROS Limited/Unobtainable: Yes Allergies: Coded Allergies: ASPIRIN (Verified Allergy, Unknown, 06/13/20) Objective Last 24 Hour Vital Signs Date Time Temp Pulse Resp B/P (MAP) Pulse Ox O2 Delivery O2 Flow Rate FiO2 06/21/20 13:18 95 18 98 Nasal Cannula 2.0 28 92 16 97 06/21/20 12:00 99.9 102 24 138/78 (98) 98 06/21/20 10:50 100.6 06/21/20 10:00 100.6 06/21/20 09:00 Nasal Cannula 2.0 Nasal Cannula 2.0 06/21/20 08:15 100 20 99 Nasal Cannula 2.0 28 96 18 99 06/21/20 08:12 99 Nasal Cannula 2.0 28 06/21/20 08:00 102.3 100 24 147/78 (101) 99 06/21/20 04:00 98.5 86 24 144/79 (100) 95 06/21/20 00:45 99.7 06/21/20 00:45 99.7 114 24 99 06/21/20 00:00 101.3 120 24 139/87 (104) 98 06/20/20 21:00 Nasal Cannula 2.0 Nasal Cannula 2.0 06/20/20 20:00 99.7 116 24 148/90 (109) 98 06/20/20 19:38 120 20 100 Nasal Cannula 2.0 28 119 20 97 06/20/20 19:35 98 Nasal Cannula 2.0 28 06/20/20 16:57 86 20 97 Nasal Cannula 2.0 84 20 95 06/20/20 16:00 97.9 110 20 146/92 (110) 96 Height (Feet): 5 Height (Inches): 9.00 Weight (Pounds): 125 Respiratory/Chest: crackles/rales - decreased Cardiovascular: normal rate, regular rhythm, no gallop/murmur Abdomen: soft, non tender, other - GT Extremities: no edema Microbiology Date/Time Source Procedure Growth Status 06/19/20 07:00 Nasopharynx SARS-CoV-2 RdRp Gene Assay - Final Complete Current Medications Medications (Trade) Dose Ordered Sig/Daniele Route PRN Reason Start Time Stop Time Status Last Admin Dose Admin Acetaminophen (Tylenol) 650 mg Q4H PRN NG Mild Pain (Pain Scale 1-3) 06/20/20 13:30 07/13/20 21:44 Acetaminophen (Tylenol) 650 mg Q6H PRN RECTAL Temp >100.5 06/16/20 15:43 07/16/20 15:42 06/21/20 09:16 Albuterol/ Ipratropium (Albuterol/ Ipratropium) 3 ml Q4H PRN HHN Shortness of Breath 06/19/20 06:30 06/24/20 06:29 06/20/20 16:57 Albuterol/ Ipratropium (Albuterol/ Ipratropium) 3 ml TIDRT HHN 06/20/20 19:00 06/25/20 18:59 06/21/20 13:18 Ceftriaxone Sodium 1 gm/ Dextrose 55 ml @ 110 mls/hr Q24H IVPB 06/14/20 16:00 06/24/20 15:59 06/20/20 16:35 Clopidogrel Bisulfate (Plavix) 75 mg DAILY NG 06/21/20 09:00 07/14/20 08:59 06/21/20 09:16 Haloperidol Lactate (Haldol) 5 mg Q6H PRN IM Agitation 06/14/20 14:45 07/29/20 14:44 06/21/20 13:06 Heparin Sodium (Porcine) (Heparin 5000 units/ml) 5,000 units EVERY 12 HOURS SUBQ 06/14/20 09:00 07/29/20 08:59 06/21/20 09:17 Metronidazole (Flagyl) 500 mg Q8HR NG 06/20/20 14:00 06/24/20 11:14 06/21/20 13:06 Olanzapine (ZyPREXA) 5 mg BEDTIME NG 06/20/20 21:00 07/29/20 20:59 06/20/20 21:55 Tramadol HCl (Ultram) 50 mg Q6H PRN NG Moderate Pain (Pain Scale 4-6) 06/20/20 13:30 06/24/20 11:14 Viviane Botello MD Jun 21, 2020 14:28
[2020-06-21] MEDS ORDERED: NS Irrig 1000ml ONE (15:24)
[2020-06-21] MEDS ORDERED: Sterile Water Irrig 1000ml IRRIG ONE (15:24)
--- NOTE | 2020-06-21 15:53 | General Progress Note ---
Subjective Allergies: Coded Allergies: ASPIRIN (Verified Allergy, Unknown, 06/13/20) Subjective rec fever non verabal congested confused pulling ng tube on restrains Objective Last 24 Hour Vital Signs Date Time Temp Pulse Resp B/P (MAP) Pulse Ox O2 Delivery O2 Flow Rate FiO2 06/21/20 13:18 95 18 98 Nasal Cannula 2.0 28 92 16 97 06/21/20 12:00 99.9 102 24 138/78 (98) 98 06/21/20 10:50 100.6 06/21/20 10:00 100.6 06/21/20 09:00 Nasal Cannula 2.0 Nasal Cannula 2.0 06/21/20 08:15 100 20 99 Nasal Cannula 2.0 28 96 18 99 06/21/20 08:12 99 Nasal Cannula 2.0 28 06/21/20 08:00 102.3 100 24 147/78 (101) 99 06/21/20 04:00 98.5 86 24 144/79 (100) 95 06/21/20 00:45 99.7 06/21/20 00:45 99.7 114 24 99 06/21/20 00:00 101.3 120 24 139/87 (104) 98 06/20/20 21:00 Nasal Cannula 2.0 Nasal Cannula 2.0 06/20/20 20:00 99.7 116 24 148/90 (109) 98 06/20/20 19:38 120 20 100 Nasal Cannula 2.0 28 119 20 97 06/20/20 19:35 98 Nasal Cannula 2.0 28 06/20/20 16:57 86 20 97 Nasal Cannula 2.0 84 20 95 06/20/20 16:00 97.9 110 20 146/92 (110) 96 Intake and Output 06/20/20 06/21/20 19:00 07:00 Intake Total 675 ml 350 ml Balance 675 ml 350 ml Free Water 70 ml 250 ml IV Total 55 ml Tube Feeding 550 ml 100 ml # Voids 3 2 Height (Feet): 5 Height (Inches): 9.00 Weight (Pounds): 125 General Appearance: confused Neck: supple Cardiovascular: regular rhythm Respiratory/Chest: crackles/rales Abdomen: non tender, soft Assessment/Plan Status: fever Assessment/Plan: aspiration pneumonia dc rocephine, add zosyn cont broncodilaor tx, dw pulmonary consult 1 uti 2 fever 3 aloc 4 dementia 5 fall 6 failure of thrive 7 ac cardio-pulmonary arrest 8 old mandible fracture 9 dysphasia 10 failure of thrive need peg katelin gonzalez tolerating ng tube feeding aspiration precaution dc ivf cont iv abx dw charge nurse dw dtr update her about his condition and plan Jakob Munoz MD Jun 21, 2020 15:53
[2020-06-21 16:00] VITALS: BP 125/71
[2020-06-21] MEDS: Piperacillin/Tazobactam 3.375 GM in NS 110 ML IVPB SCH (17:39)
[2020-06-21 20:00] VITALS: BP 152/93
--- NOTE | 2020-06-21 22:56 | Psychiatric Progress Note ---
Psychiatry Progress Note Psychiatry Progress Note Medications Current Medications Medications (Trade) Dose Ordered Sig/Daniele Route PRN Reason Start Time Stop Time Status Last Admin Dose Admin Acetaminophen (Tylenol) 650 mg Q4H PRN NG Mild Pain (Pain Scale 1-3) 06/20/20 13:30 07/13/20 21:44 Acetaminophen (Tylenol) 650 mg Q6H PRN RECTAL Temp >100.5 06/16/20 15:43 07/16/20 15:42 06/21/20 09:16 Albuterol/ Ipratropium (Albuterol/ Ipratropium) 3 ml Q4H PRN HHN Shortness of Breath 06/19/20 06:30 06/24/20 06:29 06/20/20 16:57 Albuterol/ Ipratropium (Albuterol/ Ipratropium) 3 ml TIDRT HHN 06/20/20 19:00 06/25/20 18:59 06/21/20 13:18 Haloperidol Lactate (Haldol) 5 mg Q6H PRN IM Agitation 06/14/20 14:45 07/29/20 14:44 06/21/20 18:54 Heparin Sodium (Porcine) (Heparin 5000 units/ml) 5,000 units EVERY 12 HOURS SUBQ 06/14/20 09:00 07/29/20 08:59 06/21/20 21:57 Metronidazole (Flagyl) 500 mg Q8HR NG 06/20/20 14:00 06/24/20 11:14 06/21/20 21:56 Olanzapine (ZyPREXA) 5 mg BEDTIME NG 06/20/20 21:00 07/29/20 20:59 06/21/20 21:56 Piperacillin Sod/ Tazobactam Sod 3.375 gm/Sodium Chloride 110 ml @ 27.5 mls/hr Q8H IVPB 06/21/20 18:00 06/28/20 17:59 06/21/20 17:39 Tramadol HCl (Ultram) 50 mg Q6H PRN NG Moderate Pain (Pain Scale 4-6) 06/20/20 13:30 06/24/20 11:14 Neurological/Psychiatric: Reports: anxiety, depressed, emotional problems, weakness Allergies: Coded Allergies: ASPIRIN (Verified Allergy, Unknown, 06/13/20) Objective Data Height (Feet): 5 Height (Inches): 9.00 Weight (Pounds): 125 General Appearance: confused Additional Comments: waxing consciousness. Disoriented. Mood is anxious. Affect is flat. Thought process, there is a paucity of thought content. Thought content, no suicidal or homicidal ideation. Cognition is impaired. Insight and judgment is impaired. Assessment/Plan Graton I: ASSESSMENT: Graton I Dementia. Acute encephalopathy. Graton II Deferred. Graton III Multiple falls. Graton IV Low. Graton V 20. PLAN: 1. Zyprexa 5 mg. 2. Haldol p.r.n. 3. Discontinue Ativan IV and continue the p.o. 4. Discussed with the nurse. Status: fever Status Narrative ASSESSMENT: Graton I Dementia. Acute encephalopathy. Graton II Deferred. Graton III Multiple falls. Graton IV Low. Graton V 20. PLAN: 1. Zyprexa 5 mg. 2. Haldol p.r.n. 3. Discontinue Ativan IV and continue the p.o. 4. Discussed with the nurse. Assessment/Plan: ASSESSMENT: Graton I Dementia. Acute encephalopathy. Graton II Deferred. Graton III Multiple falls. Graton IV Low. Graton V 20. PLAN: 1. Zyprexa 5 mg. 2. Haldol p.r.n. 3. Discontinue Ativan IV and continue the p.o. 4. Discussed with the nurse. Joni Del Rosario MD Jun 21, 2020 22:56
[2020-06-22 00:13] VITALS: BP 128/68
[2020-06-22] MEDS: Acetaminophen 650mg/20.3ml NG PRN (01:06)
[2020-06-22] MEDS: Piperacillin/Tazobactam 3.375 GM in NS 110 ML IVPB SCH ×3 (01:06→17:36)
[2020-06-22 04:00] VITALS: BP 118/77
[2020-06-22] MEDS: metroNIDAZOLE 500mg tab NG SCH (06:16)
[2020-06-22 07:29] LABS: HEMATOCRIT 38.6 % (42.0-52.0); HEMOGLOBIN 12.3 G/DL (14.2-18.0); MEAN CORPUSCULAR VOLUME 93 FL (80-99); PLATELET COUNT 533 K/UL (150-450); RED BLOOD COUNT 4.15 M/UL (4.70-6.10); RED CELL DISTRIBUTION WIDTH 13.4 % (11.6-14.8)
--- NOTE | 2020-06-22 07:30 | Anethesia Preoperative Eval ---
Anesthesia Pre-op PMH/ROS General Date of Evaluation: Jun 22, 2020 Time of Evaluation: 07:25 Anesthesiologist: tony ASA Score: ASA 4 Mallampati Score Class I : Soft palate, uvula, fauces, pillars visible Class II: Soft palate, uvula, fauces visible Class III: Soft palate, base of uvula visible Class IV: Only hard plate visible Mallampati Classification: Class II Surgeon: tadeo Diagnosis: dysphagia Surgical Procedure: peg Anesthesia History: none Social History: smoking - nonsmoker Family History: no anesthesia problems Allergies: Coded Allergies: ASPIRIN (Verified Allergy, Unknown, 06/13/20) Medications: see eMAR Patient NPO?: Yes Past Medical History Cardiovascular: Reports: other - syncope Gastrointestinal/Genitourinary: Reports: other - uti, dysphagia, dehydration, scrotal mass Neurologic/Psychiatric: Reports: dementia, depression/anxiety, other - ams Hematology/Immune: Reports: other - leukemia, covid-19 negative Anesthesia Pre-op Phys. Exam Physician Exam Last Vital Signs Date Time Temp Pulse Resp B/P (MAP) Pulse Ox O2 Delivery O2 Flow Rate FiO2 06/22/20 04:00 97.3 87 24 118/77 (91) 98 06/21/20 21:00 Venturi Mask 8.0 Venturi Mask 8.0 06/21/20 19:25 40 Constitutional: NAD Neurologic: CN 2-12 intact Cardiovascular: other - tachycardia Respiratory: other - venturi mask, tachypnea Gastrointestinal: S/NT/ND Airway Exam Mallampati Score: Class II MO: limited Neck: flexible TMD: 2fb ROM: limited Anesthesia Pre-op A/P Labs Microbiology Date/Time Source Procedure Growth Status 06/19/20 07:00 Nasopharynx SARS-CoV-2 RdRp Gene Assay - Final Complete 06/15/20 11:25 Urine,Clean Catch Urine Culture - Final NO GROWTH AFTER 48 HOURS Complete Hematology Test 06/22/20 05:27 White Blood Count Pending Red Blood Count Pending Hemoglobin Pending Hematocrit Pending Mean Corpuscular Volume Pending Mean Corpuscular Hemoglobin Pending Mean Corpuscular Hemoglobin Concent Pending Red Cell Distribution Width Pending Platelet Count Pending Mean Platelet Volume Pending Neutrophils (%) (Auto) Pending Lymphocytes (%) (Auto) Pending Monocytes (%) (Auto) Pending Eosinophils (%) (Auto) Pending Basophils (%) (Auto) Pending Coagulation Test 06/22/20 05:27 Prothrombin Time Pending Prothromb Time International Ratio Pending Chemistry Test 06/22/20 05:27 Sodium Level Pending Potassium Level Pending Chloride Level Pending Carbon Dioxide Level Pending Blood Urea Nitrogen Pending Creatinine Pending Estimat Glomerular Filtration Rate Pending Glucose Level Pending Calcium Level Pending Phosphorus Level Pending Magnesium Level Pending Total Bilirubin Pending Aspartate Amino Transf (AST/SGOT) Pending Alanine Aminotransferase (ALT/SGPT) Pending Alkaline Phosphatase Pending Total Protein Pending Albumin Pending Globulin Pending Risk Assessment & Plan Assessment: asa4. cxr reveals pneumonia, febrile illness, tachypnea, tachycardia Plan: optimize clinical status first then consider mac Status Change Before Surgery: No Pre-Antibiotics Drug: cephaxalin Deanna Nur MD Jun 22, 2020 07:30
[2020-06-22] MEDS: Albuterol/Ipratropium 3ml neb HHN SCH ×3 (07:31→18:46)
[2020-06-22 07:43] LABS: WHITE BLOOD COUNT 25.8 K/UL (4.8-10.8)
[2020-06-22 07:47] LABS: ALANINE AMINOTRANSFERASE 23 U/L (12-78); ALBUMIN 2.3 G/DL (3.4-5.0); ALBUMIN/GLOBULIN RATIO 0.4 (1.0-2.7); ALKALINE PHOSPHATASE 74 U/L (46-116); ASPARTATE AMINO TRANSFERASE 50 U/L (15-37); BILIRUBIN,TOTAL 0.4 MG/DL (0.2-1.0); BLOOD UREA NITROGEN 18 mg/dL (7-18); CALCIUM 9.2 MG/DL (8.5-10.1); CARBON DIOXIDE 34 MMOL/L (21-32); CHLORIDE 103 MMOL/L (98-107); CREATININE 1.2 MG/DL (0.55-1.30); PHOSPHORUS 3.2 MG/DL (2.5-4.9); POTASSIUM 3.9 MMOL/L (3.5-5.1); SODIUM 141 MMOL/L (136-145)
[2020-06-22 08:00] VITALS: BP 108/60
--- NOTE | 2020-06-22 08:49 | General Progress Note ---
Subjective ROS Limited/Unobtainable: No Allergies: Coded Allergies: ASPIRIN (Verified Allergy, Unknown, 06/13/20) Objective Last 24 Hour Vital Signs Date Time Temp Pulse Resp B/P (MAP) Pulse Ox O2 Delivery O2 Flow Rate FiO2 06/22/20 07:45 99 Venturi Mask 8.0 40 06/22/20 07:41 100 18 99 Nasal Cannula 2.0 28 101 20 96 06/22/20 04:00 97.3 87 24 118/77 (91) 98 06/22/20 04:00 101 06/22/20 00:13 100.2 108 29 128/68 (88) 100 06/22/20 00:00 115 06/21/20 21:00 Venturi Mask 8.0 Venturi Mask 8.0 06/21/20 20:00 100.0 114 40 152/93 (112) 97 06/21/20 19:25 94 Venturi Mask 8.0 40 06/21/20 16:00 99.4 95 24 125/71 (89) 97 06/21/20 13:18 95 18 98 Nasal Cannula 2.0 28 92 16 97 06/21/20 12:00 99.9 102 24 138/78 (98) 98 06/21/20 10:50 100.6 06/21/20 10:00 100.6 06/21/20 09:00 Nasal Cannula 2.0 Nasal Cannula 2.0 Intake and Output 06/21/20 06/22/20 19:00 07:00 Intake Total 805 ml Output Total 450 ml 350 ml Balance 355 ml -350 ml Free Water 200 ml Tube Feeding 605 ml Output Urine Total 450 ml 350 ml # Bowel Movements 1 1 Laboratory Tests 06/22/20 05:27: White Blood Count 25.8*H, Red Blood Count 4.15L, Hemoglobin 12.3L, Hematocrit 38.6L, Mean Corpuscular Volume 93, Mean Corpuscular Hemoglobin 29.5, Mean Corpuscular Hemoglobin Concent 31.8L, Red Cell Distribution Width 13.4, Platelet Count 533H, Mean Platelet Volume 6.4L, Neutrophils (%) (Auto) , Lymphocytes (%) (Auto) , Monocytes (%) (Auto) , Eosinophils (%) (Auto) , Basophils (%) (Auto) , Neutrophils % (Manual) [Pending], Lymphocytes % (Manual) [Pending], Platelet Estimate [Pending], Platelet Morphology [Pending], Prothrombin Time 11.2, Prothr omb Time International Ratio 1.0, Sodium Level 141, Potassium Level 3.9, Chloride Level 103, Carbon Dioxide Level 34H, Blood Urea Nitrogen 18, Creatinine 1.2, Estimat Glomerular Filtration Rate > 60, Glucose Level 141H, Calcium Level 9.2, Phosphorus Level 3.2, Magnesium Level 2.1, Total Bilirubin 0.4, Aspartate Amino Transf (AST/SGOT) 50H, Alanine Aminotransferase (ALT/SGPT) 23, Alkaline Phosphatase 74, Total Protein 7.6, Albumin 2.3L, Globulin 5.3, Albumin/Globulin Ratio 0.4L Height (Feet): 5 Height (Inches): 9.00 Weight (Pounds): 125 General Appearance: lethargic EENT: normal ENT inspection Neck: supple Cardiovascular: normal rate Respiratory/Chest: decreased breath sounds Abdomen: normal bowel sounds, non tender, soft Extremities: non-tender Assessment/Plan Status: fever Assessment/Plan: jaw fracture dysphagia leukocytosis GT placement was postponed to tomorrow given elevated WBC and plavix was just dc yesterday NGTF for now abx per ID will Ismael Randolph MD Jun 22, 2020 08:49
--- NOTE | 2020-06-22 08:58 | General Progress Note ---
Subjective Allergies: Coded Allergies: ASPIRIN (Verified Allergy, Unknown, 06/13/20) Subjective rec fever non verabal congested confused pulling ng tube on restrains Objective Last 24 Hour Vital Signs Date Time Temp Pulse Resp B/P (MAP) Pulse Ox O2 Delivery O2 Flow Rate FiO2 06/22/20 07:45 99 Venturi Mask 8.0 40 06/22/20 07:41 100 18 99 Nasal Cannula 2.0 28 101 20 96 06/22/20 04:00 97.3 87 24 118/77 (91) 98 06/22/20 04:00 101 06/22/20 00:13 100.2 108 29 128/68 (88) 100 06/22/20 00:00 115 06/21/20 21:00 Venturi Mask 8.0 Venturi Mask 8.0 06/21/20 20:00 100.0 114 40 152/93 (112) 97 06/21/20 19:25 94 Venturi Mask 8.0 40 06/21/20 16:00 99.4 95 24 125/71 (89) 97 06/21/20 13:18 95 18 98 Nasal Cannula 2.0 28 92 16 97 06/21/20 12:00 99.9 102 24 138/78 (98) 98 06/21/20 10:50 100.6 06/21/20 10:00 100.6 06/21/20 09:00 Nasal Cannula 2.0 Nasal Cannula 2.0 Intake and Output 06/21/20 06/22/20 19:00 07:00 Intake Total 805 ml Output Total 450 ml 350 ml Balance 355 ml -350 ml Free Water 200 ml Tube Feeding 605 ml Output Urine Total 450 ml 350 ml # Bowel Movements 1 1 Laboratory Tests 06/22/20 05:27: White Blood Count 25.8*H, Red Blood Count 4.15L, Hemoglobin 12.3L, Hematocrit 38.6L, Mean Corpuscular Volume 93, Mean Corpuscular Hemoglobin 29.5, Mean Corpuscular Hemoglobin Concent 31.8L, Red Cell Distribution Width 13.4, Platelet Count 533H, Mean Platelet Volume 6.4L, Neutrophils (%) (Auto) , Lymphocytes (%) (Auto) , Monocytes (%) (Auto) , Eosinophils (%) (Auto) , Basophils (%) (Auto) , Neutrophils % (Manual) [Pending], Lymphocytes % (Manual) [Pending], Platelet Estimate [Pending], Platelet Morphology [Pending], Prothrombin Time 11.2, Prothromb Time International Ratio 1.0, Sodium Level 141, Potassium Level 3.9, Chloride Level 103, Carbon Dioxide Level 34H, Blood Urea Nitrogen 18, Creatinine 1.2, Estimat Glomerular Filtration Rate > 60, Glucose Level 141H, Calcium Level 9.2, Phosphorus Level 3.2, Magnesium Level 2.1, Total Bilirubin 0.4, Aspartate Amino Transf (AST/SGOT) 50H, Alanine Aminotransferase (ALT/SGPT) 23, Alkaline Phosphatase 74, Total Protein 7.6, Albumin 2.3L, Globulin 5.3, Albumin/Globulin Ratio 0.4L Height (Feet): 5 Height (Inches): 9.00 Weight (Pounds): 125 General Appearance: lethargic Neck: supple Cardiovascular: regular rhythm Respiratory/Chest: rhonchi - bilaterally Abdomen: non tender, soft Extremities: non-tender Assessment/Plan Status: fever Assessment/Plan: aspiration pneumonia dc rocephine, add zosyn cont broncodilaor tx, dw pulmonary consult 1 uti 2 fever 3 aloc 4 dementia 5 fall 6 failure of thrive 7 ac cardio-pulmonary arrest 8 old mandible fracture 9 dysphasia 10 failure of thrive need peg katelin gonzalez tolerating ng tube feeding aspiration precaution dc ivf cont iv abx dw charge nurse dw dtr update her about his condition and plan Jakob Munoz MD Jun 22, 2020 08:57
--- NOTE | 2020-06-22 10:00 | Pulmonology Progress Note ---
Subjective ROS Limited/Unobtainable: No Interval Events: None new; appears congested but CXR clear of infiltrates Constitutional: Denies: fever HEENT: Repors: no symptoms Respiratory: Reports: no symptoms Cardiovascular: Reports: no symptoms Gastrointestinal/Abdominal: Denies: diarrhea Genitourinary: Reports: no symptoms Allergies: Coded Allergies: ASPIRIN (Verified Allergy, Unknown, 06/13/20) Objective Last 24 Hour Vital Signs Date Time Temp Pulse Resp B/P (MAP) Pulse Ox O2 Delivery O2 Flow Rate FiO2 06/22/20 08:00 98.1 90 18 108/60 (76) 98 06/22/20 07:45 99 Venturi Mask 8.0 40 06/22/20 07:41 100 18 99 Nasal Cannula 2.0 28 101 20 96 06/22/20 04:00 97.3 87 24 118/77 (91) 98 06/22/20 04:00 101 06/22/20 00:13 100.2 108 29 128/68 (88) 100 06/22/20 00:00 115 06/21/20 21:00 Venturi Mask 8.0 Venturi Mask 8.0 06/21/20 20:00 100.0 114 40 152/93 (112) 97 06/21/20 19:25 94 Venturi Mask 8.0 40 06/21/20 16:00 99.4 95 24 125/71 (89) 97 06/21/20 13:18 95 18 98 Nasal Cannula 2.0 28 92 16 97 06/21/20 12:00 99.9 102 24 138/78 (98) 98 06/21/20 10:50 100.6 Intake and Output 06/21/20 06/22/20 19:00 07:00 Intake Total 805 ml Output Total 450 ml 350 ml Balance 355 ml -350 ml Free Water 200 ml Tube Feeding 605 ml Output Urine Total 450 ml 350 ml # Bowel Movements 1 1 General Appearance: no acute distress HEENT: normocephalic Respiratory: chest wall non-tender, lungs clear Cardiovascular: normal peripheral pulses, regular rhythm Abdomen: normal bowel sounds Laboratory Tests 06/22/20 05:27: White Blood Count 25.8*H, Red Blood Count 4.15L, Hemoglobin 12.3L, Hematocrit 38.6L, Mean Corpuscular Volume 93, Mean Corpuscular Hemoglobin 29.5, Mean Corpuscular Hemoglobin Concent 31.8L, Red Cell Distribution Width 13.4, Platelet Count 533H, Mean Platelet Volume 6.4L, Neutrophils (%) (Auto) , Lymphocytes (%) (Auto) , Monocytes (%) (Auto) , Eosinophils (%) (Auto) , Basophils (%) (Auto) , Neutrophils % (Manual) [Pending], Lymphocytes % (Manual) [Pending], Platelet Estimate [Pending], Platelet Morphology [Pending], Prothrombin Time 11.2, Prothromb Time International Ratio 1.0, Sodium Level 141, Potassium Level 3.9, Chloride Level 103, Carbon Dioxide Level 34H, Blood Urea Nitrogen 18, Creatinine 1.2, Estimat Glomerular Filtration Rate > 60, Glucose Level 141H, Calcium Level 9.2, Phosphorus Level 3.2, Magnesium Level 2.1, Total Bilirubin 0.4, Aspartate Amino Transf (AST/SGOT) 50H, Alanine Aminotransferase (ALT/SGPT) 23, Alkaline Phosphatase 74, Total Protein 7.6, Albumin 2.3L, Globulin 5.3, Albumin/Globulin Ratio 0.4L Current Medications Medications (Trade) Dose Ordered Sig/Daniele Route PRN Reason Start Time Stop Time Status Last Admin Dose Admin Acetaminophen (Tylenol) 650 mg Q4H PRN NG Mild Pain (Pain Scale 1-3) 06/20/20 13:30 07/13/20 21:44 06/22/20 01:06 Acetaminophen (Tylenol) 650 mg Q6H PRN RECTAL Temp >100.5 06/16/20 15:43 07/16/20 15:42 06/21/20 09:16 Albuterol/ Ipratropium (Albuterol/ Ipratropium) 3 ml Q4H PRN HHN Shortness of Breath 06/19/20 06:30 06/24/20 06:29 06/20/20 16:57 Albuterol/ Ipratropium (Albuterol/ Ipratropium) 3 ml TIDRT HHN 06/20/20 19:00 06/25/20 18:59 06/22/20 07:31 Haloperidol Lactate (Haldol) 5 mg Q6H PRN IM Agitation 06/14/20 14:45 07/29/20 14:44 06/21/20 18:54 Heparin Sodium (Porcine) (Heparin 5000 units/ml) 5,000 units EVERY 12 HOURS SUBQ 06/14/20 09:00 07/29/20 08:59 06/21/20 21:57 Metronidazole (Flagyl) 500 mg Q8HR NG 06/20/20 14:00 06/24/20 11:14 06/22/20 06:16 Olanzapine (ZyPREXA) 5 mg BEDTIME NG 06/20/20 21:00 07/29/20 20:59 06/21/20 21:56 Piperacillin Sod/ Tazobactam Sod 3.375 gm/Sodium Chloride 110 ml @ 27.5 mls/hr Q8H IVPB 06/21/20 18:00 06/28/20 17:59 06/22/20 01:06 Tramadol HCl (Ultram) 50 mg Q6H PRN NG Moderate Pain (Pain Scale 4-6) 06/20/20 13:30 06/24/20 11:14 Assessment/Plan Assessment/Plan IMPRESSION: 1. Pulmonary congestion; suspect difficulty with handling upper airway secretions; no pneumonia on CXR 2. Altered mental status. 3. Dementia. 4. Jaw fracture. 5. Status post fall. 6. Depression. DISCUSSION: Continue broad-spectrum antibiotics. I would recommend keeping NPO and consideration of alternate methods of nutrition unless his mental status improves. Minimize sedation. Sitter or restraints per Psychiatry. I will follow carefully. Continue low flow O2; now on ventimask Needs PEG DC planning to ARU Hayden Cartwright Omar Syed MD Jun 22, 2020 10:00
[2020-06-22] MEDS: Heparin 5000 units/ml inj SUBQ SCH ×2 (10:05→21:10)
--- NOTE | 2020-06-22 10:40 | Infectious Diseases Prog Note ---
Assessment/Plan Assessment/Plan antibiotics : zosyn, flagyl A 1. pneumonia 2. Dementia. 3. Depression. 4. History of mandibular fracture status post surgery. 5. leucocytosis increased P 1. zosyn started 2. d/c ceftriaxone, flagyl 3. sputum culture 4. will follow up cultures Subjective ROS Limited/Unobtainable: Yes Allergies: Coded Allergies: ASPIRIN (Verified Allergy, Unknown, 06/13/20) Objective Last 24 Hour Vital Signs Date Time Temp Pulse Resp B/P (MAP) Pulse Ox O2 Delivery O2 Flow Rate FiO2 06/22/20 08:00 98.1 90 18 108/60 (76) 98 06/22/20 07:45 99 Venturi Mask 8.0 40 06/22/20 07:41 100 18 99 Nasal Cannula 2.0 28 101 20 96 06/22/20 04:00 97.3 87 24 118/77 (91) 98 06/22/20 04:00 101 06/22/20 00:13 100.2 108 29 128/68 (88) 100 06/22/20 00:00 115 06/21/20 21:00 Venturi Mask 8.0 Venturi Mask 8.0 06/21/20 20:00 100.0 114 40 152/93 (112) 97 06/21/20 19:25 94 Venturi Mask 8.0 40 06/21/20 16:00 99.4 95 24 125/71 (89) 97 06/21/20 13:18 95 18 98 Nasal Cannula 2.0 28 92 16 97 06/21/20 12:00 99.9 102 24 138/78 (98) 98 06/21/20 10:50 100.6 Height (Feet): 5 Height (Inches): 9.00 Weight (Pounds): 125 Respiratory/Chest: crackles/rales Cardiovascular: normal rate, regular rhythm, no gallop/murmur Abdomen: soft, non tender Extremities: no edema Laboratory Tests Test 06/22/20 05:27 White Blood Count 25.8 K/UL (4.8-10.8) *H Red Blood Count 4.15 M/UL (4.70-6.10) L Hemoglobin 12.3 G/DL (14.2-18.0) L Hematocrit 38.6 % (42.0-52.0) L Mean Corpuscular Volume 93 FL (80-99) Mean Corpuscular Hemoglobin 29.5 PG (27.0-31.0) Mean Corpuscular Hemoglobin Concent 31.8 G/DL (32.0-36.0) L Red Cell Distribution Width 13.4 % (11.6-14.8) Platelet Count 533 K/UL (150-450) H Mean Platelet Volume 6.4 FL (6.5-10.1) L Neutrophils (%) (Auto) % (45.0-75.0) Lymphocytes (%) (Auto) % (20.0-45.0) Monocytes (%) (Auto) % (1.0-10.0) Eosinophils (%) (Auto) % (0.0-3.0) Basophils (%) (Auto) % (0.0-2.0) Neutrophils % (Manual) Pending Lymphocytes % (Manual) Pending Platelet Estimate Pending Platelet Morphology Pending Prothrombin Time 11.2 SEC (9.30-11.50) Prothromb Time International Ratio 1.0 (0.9-1.1) Sodium Level 141 MMOL/L (136-145) Potassium Level 3.9 MMOL/L (3.5-5.1) Chloride Level 103 MMOL/L (98-107) Carbon Dioxide Level 34 MMOL/L (21-32) H Blood Urea Nitrogen 18 mg/dL (7-18) Creatinine 1.2 MG/DL (0.55-1.30) Estimat Glomerular Filtration Rate > 60 mL/min (>60) Glucose Level 141 MG/DL (74-106) H Calcium Level 9.2 MG/DL (8.5-10.1) Phosphorus Level 3.2 MG/DL (2.5-4.9) Magnesium Level 2.1 MG/DL (1.8-2.4) Total Bilirubin 0.4 MG/DL (0.2-1.0) Aspartate Amino Transf (AST/SGOT) 50 U/L (15-37) H Alanine Aminotransferase (ALT/SGPT) 23 U/L (12-78) Alkaline Phosphatase 74 U/L (46-116) Total Protein 7.6 G/DL (6.4-8.2) Albumin 2.3 G/DL (3.4-5.0) L Globulin 5.3 g/dL Albumin/Globulin Ratio 0.4 (1.0-2.7) L Current Medications Medications (Trade) Dose Ordered Sig/Daniele Route PRN Reason Start Time Stop Time Status Last Admin Dose Admin Acetaminophen (Tylenol) 650 mg Q4H PRN NG Mild Pain (Pain Scale 1-3) 06/20/20 13:30 07/13/20 21:44 06/22/20 01:06 Acetaminophen (Tylenol) 650 mg Q6H PRN RECTAL Temp >100.5 06/16/20 15:43 07/16/20 15:42 06/21/20 09:16 Albuterol/ Ipratropium (Albuterol/ Ipratropium) 3 ml Q4H PRN HHN Shortness of Breath 06/19/20 06:30 06/24/20 06:29 06/20/20 16:57 Albuterol/ Ipratropium (Albuterol/ Ipratropium) 3 ml TIDRT HHN 06/20/20 19:00 06/25/20 18:59 06/22/20 07:31 Haloperidol Lactate (Haldol) 5 mg Q6H PRN IM Agitation 06/14/20 14:45 07/29/20 14:44 06/21/20 18:54 Heparin Sodium (Porcine) (Heparin 5000 units/ml) 5,000 units EVERY 12 HOURS SUBQ 06/14/20 09:00 07/29/20 08:59 06/22/20 10:05 Metronidazole (Flagyl) 500 mg Q8HR NG 06/20/20 14:00 06/24/20 11:14 06/22/20 06:16 Olanzapine (ZyPREXA) 5 mg BEDTIME NG 06/20/20 21:00 07/29/20 20:59 06/21/20 21:56 Piperacillin Sod/ Tazobactam Sod 3.375 gm/Sodium Chloride 110 ml @ 27.5 mls/hr Q8H IVPB 06/21/20 18:00 06/28/20 17:59 06/22/20 10:11 Tramadol HCl (Ultram) 50 mg Q6H PRN NG Moderate Pain (Pain Scale 4-6) 06/20/20 13:30 06/24/20 11:14 Viviane Botello MD Jun 22, 2020 10:40
[2020-06-22 12:00] VITALS: BP 110/61
[2020-06-22 16:00] VITALS: BP 113/77
[2020-06-22 20:00] VITALS: BP 135/80
[2020-06-22] MEDS: Haloperidol 5mg/ml Inj IM PRN (21:05)
--- NOTE | 2020-06-22 23:06 | Psychiatric Progress Note ---
Psychiatry Progress Note Psychiatry Progress Note Medications Current Medications Medications (Trade) Dose Ordered Sig/Daniele Route PRN Reason Start Time Stop Time Status Last Admin Dose Admin Acetaminophen (Tylenol) 650 mg Q4H PRN NG Mild Pain (Pain Scale 1-3) 06/20/20 13:30 07/13/20 21:44 06/22/20 01:06 Acetaminophen (Tylenol) 650 mg Q6H PRN RECTAL Temp >100.5 06/16/20 15:43 07/16/20 15:42 06/21/20 09:16 Albuterol/ Ipratropium (Albuterol/ Ipratropium) 3 ml Q4H PRN HHN Shortness of Breath 06/19/20 06:30 06/24/20 06:29 06/20/20 16:57 Albuterol/ Ipratropium (Albuterol/ Ipratropium) 3 ml TIDRT HHN 06/20/20 19:00 06/25/20 18:59 06/22/20 18:46 Haloperidol Lactate (Haldol) 5 mg Q6H PRN IM Agitation 06/14/20 14:45 07/29/20 14:44 06/22/20 21:05 Heparin Sodium (Porcine) (Heparin 5000 units/ml) 5,000 units EVERY 12 HOURS SUBQ 06/14/20 09:00 07/29/20 08:59 06/22/20 21:10 Olanzapine (ZyPREXA) 5 mg BEDTIME NG 06/20/20 21:00 07/29/20 20:59 06/21/20 21:56 Piperacillin Sod/ Tazobactam Sod 3.375 gm/Sodium Chloride 110 ml @ 27.5 mls/hr Q8H IVPB 06/21/20 18:00 06/28/20 17:59 06/22/20 17:36 Tramadol HCl (Ultram) 50 mg Q6H PRN NG Moderate Pain (Pain Scale 4-6) 06/20/20 13:30 06/24/20 11:14 Neurological/Psychiatric: Reports: anxiety, depressed, emotional problems, weakness Allergies: Coded Allergies: ASPIRIN (Verified Allergy, Unknown, 06/13/20) Objective Data Height (Feet): 5 Height (Inches): 9.00 Weight (Pounds): 125 Additional Comments: waxing consciousness. Disoriented. Mood is anxious. Affect is flat. Thought process, there is a paucity of thought content. Thought content, no suicidal or homicidal ideation. Cognition is impaired. Insight and judgment is impaired. Assessment/Plan [place] I: ASSESSMENT: [place] I Dementia. Acute encephalopathy. [place] II Deferred. [place] III Multiple falls. [place] IV Low. [place] V 20. PLAN: 1. Zyprexa 5 mg. 2. Haldol p.r.n. 3. Discontinue Ativan IV and continue the p.o. 4. Discussed with the nurse. Status: fever Status Narrative ASSESSMENT: [place] I Dementia. Acute encephalopathy. [place] II Deferred. [place] III Multiple falls. [place] IV Low. [place] V 20. PLAN: 1. Zyprexa 5 mg. 2. Haldol p.r.n. 3. Discontinue Ativan IV and continue the p.o. 4. Discussed with the nurse. Assessment/Plan: ASSESSMENT: [place] I Dementia. Acute encephalopathy. [place] II Deferred. [place] III Multiple falls. [place] IV Low. [place] V 20. PLAN: 1. Zyprexa 5 mg. 2. Haldol p.r.n. 3. Discontinue Ativan IV and continue the p.o. 4. Discussed with the nurse. Joni Del Rosario MD Jun 22, 2020 23:06
--- NOTE | 2020-06-22 23:17 | Cardiology Progress Note ---
Assessment/Plan Assessment/Plan 1. Sinus tachycardia, likely due to intravascular volume depletion, continue hydration, 2D echo shows normal LVEF. 2. Syncope, most likely due to hypovolemia versus neurocardiogenic, normal LV fxn. 3. Right lung pneumonia, suspect aspiration, continue IV antibiotics. 4. Status post fall with jaw fracture. Subjective Subjective Sinus tachycardia at rate of 110. On venturi mask. Objective Last 24 Hour Vital Signs Date Time Temp Pulse Resp B/P (MAP) Pulse Ox O2 Delivery O2 Flow Rate FiO2 06/22/20 21:00 Venturi Mask 8.0 06/22/20 20:00 110 06/22/20 20:00 98.2 115 22 135/80 (98) 98 06/22/20 18:47 102 22 99 Nasal Cannula 2.0 28 104 22 97 06/22/20 18:46 98 Venturi Mask 8.0 40 06/22/20 16:00 122 06/22/20 16:00 98.6 122 20 113/77 (89) 98 06/22/20 13:18 98 20 99 Nasal Cannula 2.0 28 95 20 95 06/22/20 12:00 96 06/22/20 12:00 96.8 76 19 110/61 (77) 100 06/22/20 09:00 Venturi Mask 8.0 Venturi Mask 8.0 06/22/20 08:00 98.1 90 18 108/60 (76) 98 06/22/20 08:00 89 06/22/20 07:45 99 Venturi Mask 8.0 40 06/22/20 07:41 100 18 99 Nasal Cannula 2.0 28 101 20 96 06/22/20 04:00 97.3 87 24 118/77 (91) 98 06/22/20 04:00 101 06/22/20 00:13 100.2 108 29 128/68 (88) 100 06/22/20 00:00 115 Intake and Output 06/21/20 06/22/20 18:59 06:59 Intake Total 860 ml Output Total 450 ml 350 ml Balance 410 ml -350 ml Free Water 200 ml Tube Feeding 660 ml Output Urine Total 450 ml 350 ml # Bowel Movements 1 1 2D Echo: EF 60%, Small Pericardial Eff, RVSP 41 mmHg, Grade I LVDD, Mild AR Laboratory Tests Test 06/22/20 05:27 White Blood Count 25.8 K/UL (4.8-10.8) *H Red Blood Count 4.15 M/UL (4.70-6.10) L Hemoglobin 12.3 G/DL (14.2-18.0) L Hematocrit 38.6 % (42.0-52.0) L Mean Corpuscular Volume 93 FL (80-99) Mean Corpuscular Hemoglobin 29.5 PG (27.0-31.0) Mean Corpuscular Hemoglobin Concent 31.8 G/DL (32.0-36.0) L Red Cell Distribution Width 13.4 % (11.6-14.8) Platelet Count 533 K/UL (150-450) H Mean Platelet Volume 6.4 FL (6.5-10.1) L Neutrophils (%) (Auto) % (45.0-75.0) Lymphocytes (%) (Auto) % (20.0-45.0) Monocytes (%) (Auto) % (1.0-10.0) Eosinophils (%) (Auto) % (0.0-3.0) Basophils (%) (Auto) % (0.0-2.0) Differential Total Cells Counted 100 Neutrophils % (Manual) 77 % (45-75) H Lymphocytes % (Manual) 19 % (20-45) L Monocytes % (Manual) 4 % (1-10) Eosinophils % (Manual) 0 % (0-3) Basophils % (Manual) 0 % (0-2) Band Neutrophils 0 % (0-8) Platelet Estimate Increased H Platelet Morphology Normal Red Blood Cell Morphology Normal Prothrombin Time 11.2 SEC (9.30-11.50) Prothromb Time International Ratio 1.0 (0.9-1.1) Sodium Level 141 MMOL/L (136-145) Potassium Level 3.9 MMOL/L (3.5-5.1) Chloride Level 103 MMOL/L (98-107) Carbon Dioxide Level 34 MMOL/L (21-32) H Blood Urea Nitrogen 18 mg/dL (7-18) Creatinine 1.2 MG/DL (0.55-1.30) Estimat Glomerular Filtration Rate > 60 mL/min (>60) Glucose Level 141 MG/DL (74-106) H Calcium Level 9.2 MG/DL (8.5-10.1) Phosphorus Level 3.2 MG/DL (2.5-4.9) Magnesium Level 2.1 MG/DL (1.8-2.4) Total Bilirubin 0.4 MG/DL (0.2-1.0) Aspartate Amino Transf (AST/SGOT) 50 U/L (15-37) H Alanine Aminotransferase (ALT/SGPT) 23 U/L (12-78) Alkaline Phosphatase 74 U/L (46-116) Total Protein 7.6 G/DL (6.4-8.2) Albumin 2.3 G/DL (3.4-5.0) L Globulin 5.3 g/dL Albumin/Globulin Ratio 0.4 (1.0-2.7) L Objective HEENT: Atraumatic and normocephalic. Anicteric. Pupils are equal, round, and reactive to light and accommodation. A 2 cm subcutaneous hematoma on the left temporal scalp. NECK: JVP less than 5 cm. No carotid bruit. CARDIOVASCULAR: Normal S1, S2. Regular rate and rhythm. Tachycardic. No murmurs, gallops, or rubs. LUNGS: Clear to auscultation bilaterally. ABDOMEN: Soft, nontender, nondistended. No hepatosplenomegaly. Positive bowel sounds. EXTREMITIES: No evidence of edema, clubbing, or cyanosis. Jimbo Kebede MD Jun 22, 2020 23:17
[2020-06-23] VITALS: BP 147/85
[2020-06-23] MEDS: Piperacillin/Tazobactam 3.375 GM in NS 110 ML IVPB SCH ×3 (01:21→17:23)
[2020-06-23 04:00] VITALS: BP 146/77
[2020-06-23 07:36] LABS: BASOPHILS % (AUTO) 1.4 % (0.0-2.0); EOSINOPHILS % (AUTO) 0.8 % (0.0-3.0); HEMATOCRIT 37.8 % (42.0-52.0); HEMOGLOBIN 12.5 G/DL (14.2-18.0); LYMPHOCYTES % (AUTO) 14.8 % (20.0-45.0); MEAN CORPUSCULAR VOLUME 89 FL (80-99); MONOCYTES % (AUTO) 8.3 % (1.0-10.0); NEUTROPHILS % (AUTO) 74.7 % (45.0-75.0); PLATELET COUNT 555 K/UL (150-450); RED BLOOD COUNT 4.26 M/UL (4.70-6.10); RED CELL DISTRIBUTION WIDTH 13.7 % (11.6-14.8)
[2020-06-23] MEDS: Albuterol/Ipratropium 3ml neb HHN SCH ×3 (07:36→19:00)
[2020-06-23 08:00] VITALS: BP 129/76
[2020-06-23 08:14] LABS: ALANINE AMINOTRANSFERASE 28 U/L (12-78); ALBUMIN 2.5 G/DL (3.4-5.0); ALBUMIN/GLOBULIN RATIO 0.4 (1.0-2.7); ALKALINE PHOSPHATASE 75 U/L (46-116); ANION GAP 6 mmol/L (5-15); ASPARTATE AMINO TRANSFERASE 54 U/L (15-37); BILIRUBIN,TOTAL 0.5 MG/DL (0.2-1.0); BLOOD UREA NITROGEN 16 mg/dL (7-18); CALCIUM 9.1 MG/DL (8.5-10.1); CARBON DIOXIDE 31 MMOL/L (21-32); CHLORIDE 105 MMOL/L (98-107); CREATININE 1.2 MG/DL (0.55-1.30); POTASSIUM 4.2 MMOL/L (3.5-5.1); SODIUM 142 MMOL/L (136-145)
[2020-06-23] MEDS: Heparin 5000 units/ml inj SUBQ SCH ×2 (09:00→20:31)
--- NOTE | 2020-06-23 09:20 | Pulmonology Progress Note ---
Subjective ROS Limited/Unobtainable: Yes Interval Events: None new; appears congested but CXR clear of infiltrates Constitutional: Denies: fever HEENT: Repors: no symptoms Respiratory: Reports: no symptoms Cardiovascular: Reports: no symptoms Gastrointestinal/Abdominal: Denies: diarrhea Genitourinary: Reports: no symptoms Allergies: Coded Allergies: ASPIRIN (Verified Allergy, Unknown, 06/13/20) Objective Last 24 Hour Vital Signs Date Time Temp Pulse Resp B/P (MAP) Pulse Ox O2 Delivery O2 Flow Rate FiO2 06/23/20 07:36 99 Venturi Mask 12.0 50 06/23/20 07:36 106 30 99 Venturi Mask 12.0 50 102 30 99 06/23/20 04:00 106 06/23/20 04:00 98.1 83 22 146/77 (100) 98 06/23/20 00:00 98.4 106 24 147/85 (105) 98 06/23/20 00:00 107 06/22/20 21:00 Venturi Mask 8.0 06/22/20 20:00 110 06/22/20 20:00 98.2 115 22 135/80 (98) 98 06/22/20 18:47 102 22 99 Nasal Cannula 2.0 28 104 22 97 06/22/20 18:46 98 Venturi Mask 8.0 40 06/22/20 16:00 122 06/22/20 16:00 98.6 122 20 113/77 (89) 98 06/22/20 13:18 98 20 99 Nasal Cannula 2.0 28 95 20 95 06/22/20 12:00 96 06/22/20 12:00 96.8 76 19 110/61 (77) 100 Intake and Output 06/22/20 06/23/20 19:00 07:00 Intake Total 55 ml 110.0 ml Output Total 675 ml 400 ml Balance -620 ml -290.0 ml IV Total 110.0 ml Tube Feeding 55 ml Output Urine Total 675 ml 400 ml # Bowel Movements 1 General Appearance: no acute distress HEENT: normocephalic Respiratory: chest wall non-tender, lungs clear Cardiovascular: normal peripheral pulses, regular rhythm Abdomen: normal bowel sounds Laboratory Tests 06/23/20 05:29: White Blood Count 15.0H, Red Blood Count 4.26L, Hemoglobin 12.5L, Hematocrit 37.8L, Mean Corpuscular Volume 89, Mean Corpuscular Hemoglobin 29.4, Mean Corpuscular Hemoglobin Concent 33.2, Red Cell Distribution Width 13.7, Platelet Count 555H, Mean Platelet Volume 6.7, Neutrophils (%) (Auto) 74.7, Lymphocytes (%) (Auto) 14.8L, Monocytes (%) (Auto) 8.3, Eosinophils (%) (Auto) 0.8, Basophils (%) (Auto) 1.4, Sodium Level 142, Potassium Level 4.2, Chloride Level 105, Carbon Dioxide Level 31, Anion Gap 6, Blood Urea Nitrogen 16, Creatinine 1.2, Estimat Glomerular Filtration Rate > 60, Glucose Level 103, Calcium Level 9.1, Total Bilirubin 0.5, Aspartate Amino Transf (AST/SGOT) 54H, Alanine Aminotr ansferase (ALT/SGPT) 28, Alkaline Phosphatase 75, Total Protein 8.2, Albumin 2.5L, Globulin 5.7, Albumin/Globulin Ratio 0.4L Current Medications Medications (Trade) Dose Ordered Sig/Daniele Route PRN Reason Start Time Stop Time Status Last Admin Dose Admin Acetaminophen (Tylenol) 650 mg Q4H PRN NG Mild Pain (Pain Scale 1-3) 06/20/20 13:30 07/13/20 21:44 06/22/20 01:06 Acetaminophen (Tylenol) 650 mg Q6H PRN RECTAL Temp >100.5 06/16/20 15:43 07/16/20 15:42 06/21/20 09:16 Albuterol/ Ipratropium (Albuterol/ Ipratropium) 3 ml Q4H PRN HHN Shortness of Breath 06/19/20 06:30 06/24/20 06:29 06/20/20 16:57 Albuterol/ Ipratropium (Albuterol/ Ipratropium) 3 ml TIDRT HHN 06/20/20 19:00 06/25/20 18:59 06/23/20 07:36 Haloperidol Lactate (Haldol) 5 mg Q6H PRN IM Agitation 06/14/20 14:45 07/29/20 14:44 06/22/20 21:05 Heparin Sodium (Porcine) (Heparin 5000 units/ml) 5,000 units EVERY 12 HOURS SUBQ 06/14/20 09:00 12/18/20 08:59 06/22/20 21:10 Olanzapine (ZyPREXA) 5 mg BEDTIME NG 06/20/20 21:00 07/29/20 20:59 06/21/20 21:56 Piperacillin Sod/ Tazobactam Sod 3.375 gm/Sodium Chloride 110 ml @ 27.5 mls/hr Q8H IVPB 06/21/20 18:00 06/28/20 17:59 06/23/20 01:21 Tramadol HCl (Ultram) 50 mg Q6H PRN NG Moderate Pain (Pain Scale 4-6) 06/20/20 13:30 06/24/20 11:14 Assessment/Plan Assessment/Plan IMPRESSION: 1. Pulmonary congestion; suspect difficulty with handling upper airway secretions; no pneumonia on CXR 2. Altered mental status. 3. Dementia. 4. Jaw fracture. 5. Status post fall. 6. Depression. DISCUSSION: Continue broad-spectrum antibiotics. I would recommend keeping NPO and consideration of alternate methods of nutrition unless his mental status improves. Minimize sedation. Sitter or restraints per Psychiatry. I will follow carefully. Continue low flow O2; now on ventimask Needs PEG DC planning to ARU Chandrakant Singh M.D. Chandrakant Singh MD Jun 23, 2020 09:20
--- NOTE | 2020-06-23 11:09 | Infectious Diseases Prog Note ---
Assessment/Plan Assessment/Plan A; 1. Pneumonia 2. Dementia. 3. Depression. 4. History of mandibular fracture status post surgery. 5. Hypoxemia 6. Tachycardia PLAN: 1. Continue Zosyn 2. We will follow up cultures and adjust antibiotics accordingly Subjective ROS Limited/Unobtainable: Yes Constitutional: Denies: fever Respiratory: Reports: productive cough Neurologic: Reports: confusion, other - on restraint Allergies: Coded Allergies: ASPIRIN (Verified Allergy, Unknown, 06/13/20) Objective Last 24 Hour Vital Signs Date Time Temp Pulse Resp B/P (MAP) Pulse Ox O2 Delivery O2 Flow Rate FiO2 06/23/20 08:00 113 06/23/20 08:00 98.1 101 20 129/76 (93) 100 113 06/23/20 07:36 99 Venturi Mask 12.0 50 06/23/20 07:36 106 30 99 Venturi Mask 12.0 50 102 30 99 06/23/20 04:00 106 06/23/20 04:00 98.1 83 22 146/77 (100) 98 06/23/20 00:00 98.4 106 24 147/85 (105) 98 06/23/20 00:00 107 06/22/20 21:00 Venturi Mask 8.0 06/22/20 20:00 110 06/22/20 20:00 98.2 115 22 135/80 (98) 98 06/22/20 18:47 102 22 99 Nasal Cannula 2.0 28 104 22 97 06/22/20 18:46 98 Venturi Mask 8.0 40 06/22/20 16:00 122 06/22/20 16:00 98.6 122 20 113/77 (89) 98 06/22/20 13:18 98 20 99 Nasal Cannula 2.0 28 95 20 95 06/22/20 12:00 96 06/22/20 12:00 96.8 76 19 110/61 (77) 100 Height (Feet): 5 Height (Inches): 9.00 Weight (Pounds): 125 HEENT: mucous membranes moist Respiratory/Chest: other - oxygen by mask, few rhonchi Cardiovascular: tachycardia Abdomen: soft, non tender, other - NG tube Extremities: no edema Neurologic/Psychiatric: disoriented Laboratory Tests Test 06/23/20 05:29 White Blood Count 15.0 K/UL (4.8-10.8) H Red Blood Count 4.26 M/UL (4.70-6.10) L Hemoglobin 12.5 G/DL (14.2-18.0) L Hematocrit 37.8 % (42.0-52.0) L Mean Corpuscular Volume 89 FL (80-99) Mean Corpuscular Hemoglobin 29.4 PG (27.0-31.0) Mean Corpuscular Hemoglobin Concent 33.2 G/DL (32.0-36.0) Red Cell Distribution Width 13.7 % (11.6-14.8) Platelet Count 555 K/UL (150-450) H Mean Platelet Volume 6.7 FL (6.5-10.1) Neutrophils (%) (Auto) 74.7 % (45.0-75.0) Lymphocytes (%) (Auto) 14.8 % (20.0-45.0) L Monocytes (%) (Auto) 8.3 % (1.0-10.0) Eosinophils (%) (Auto) 0.8 % (0.0-3.0) Basophils (%) (Auto) 1.4 % (0.0-2.0) Sodium Level 142 MMOL/L (136-145) Potassium Level 4.2 MMOL/L (3.5-5.1) Chloride Level 105 MMOL/L (98-107) Carbon Dioxide Level 31 MMOL/L (21-32) Anion Gap 6 mmol/L (5-15) Blood Urea Nitrogen 16 mg/dL (7-18) Creatinine 1.2 MG/DL (0.55-1.30) Estimat Glomerular Filtration Rate > 60 mL/min (>60) Glucose Level 103 MG/DL (74-106) Calcium Level 9.1 MG/DL (8.5-10.1) Total Bilirubin 0.5 MG/DL (0.2-1.0) Aspartate Amino Transf (AST/SGOT) 54 U/L (15-37) H Alanine Aminotransferase (ALT/SGPT) 28 U/L (12-78) Alkaline Phosphatase 75 U/L (46-116) Total Protein 8.2 G/DL (6.4-8.2) Albumin 2.5 G/DL (3.4-5.0) L Globulin 5.7 g/dL Albumin/Globulin Ratio 0.4 (1.0-2.7) L Current Medications Medications (Trade) Dose Ordered Sig/Daniele Route PRN Reason Start Time Stop Time Status Last Admin Dose Admin Acetaminophen (Tylenol) 650 mg Q4H PRN NG Mild Pain (Pain Scale 1-3) 06/20/20 13:30 07/13/20 21:44 06/22/20 01:06 Acetaminophen (Tylenol) 650 mg Q6H PRN RECTAL Temp >100.5 06/16/20 15:43 07/16/20 15:42 06/21/20 09:16 Albuterol/ Ipratropium (Albuterol/ Ipratropium) 3 ml Q4H PRN HHN Shortness of Breath 06/19/20 06:30 06/24/20 06:29 06/20/20 16:57 Albuterol/ Ipratropium (Albuterol/ Ipratropium) 3 ml TIDRT HHN 06/20/20 19:00 06/25/20 18:59 06/23/20 07:36 Haloperidol Lactate (Haldol) 5 mg Q6H PRN IM Agitation 06/14/20 14:45 07/29/20 14:44 06/22/20 21:05 Heparin Sodium (Porcine) (Heparin 5000 units/ml) 5,000 units EVERY 12 HOURS SUBQ 06/14/20 09:00 07/29/20 08:59 06/22/20 21:10 Olanzapine (ZyPREXA) 5 mg BEDTIME NG 06/20/20 21:00 07/29/20 20:59 06/21/20 21:56 Piperacillin Sod/ Tazobactam Sod 3.375 gm/Sodium Chloride 110 ml @ 27.5 mls/hr Q8H IVPB 06/21/20 18:00 06/28/20 17:59 06/23/20 09:51 Tramadol HCl (Ultram) 50 mg Q6H PRN NG Moderate Pain (Pain Scale 4-6) 06/20/20 13:30 06/24/20 11:14 Gabriel Foley MD Jun 23, 2020 11:09
[2020-06-23 12:00] VITALS: BP 128/67
--- NOTE | 2020-06-23 12:46 | General Progress Note ---
Subjective ROS Limited/Unobtainable: No Allergies: Coded Allergies: ASPIRIN (Verified Allergy, Unknown, 06/13/20) Objective Last 24 Hour Vital Signs Date Time Temp Pulse Resp B/P (MAP) Pulse Ox O2 Delivery O2 Flow Rate FiO2 06/23/20 09:00 Venturi Mask 8.0 06/23/20 08:00 113 06/23/20 08:00 98.1 101 20 129/76 (93) 100 113 06/23/20 07:36 99 Venturi Mask 12.0 50 06/23/20 07:36 106 30 99 Venturi Mask 12.0 50 102 30 99 06/23/20 04:00 106 06/23/20 04:00 98.1 83 22 146/77 (100) 98 06/23/20 00:00 98.4 106 24 147/85 (105) 98 06/23/20 00:00 107 06/22/20 21:00 Venturi Mask 8.0 06/22/20 20:00 110 06/22/20 20:00 98.2 115 22 135/80 (98) 98 06/22/20 18:47 102 22 99 Nasal Cannula 2.0 28 104 22 97 06/22/20 18:46 98 Venturi Mask 8.0 40 06/22/20 16:00 122 06/22/20 16:00 98.6 122 20 113/77 (89) 98 06/22/20 13:18 98 20 99 Nasal Cannula 2.0 28 95 20 95 Intake and Output 06/22/20 06/23/20 19:00 07:00 Intake Total 55 ml 110.0 ml Output Total 675 ml 400 ml Balance -620 ml -290.0 ml IV Total 110.0 ml Tube Feeding 55 ml Output Urine Total 675 ml 400 ml # Bowel Movements 1 Laboratory Tests 06/23/20 05:29: White Blood Count 15.0H, Red Blood Count 4.26L, Hemoglobin 12.5L, Hematocrit 37.8L, Mean Corpuscular Volume 89, Mean Corpuscular Hemoglobin 29.4, Mean Corpuscular Hemoglobin Concent 33.2, Red Cell Distribution Width 13.7, Platelet Count 555H, Mean Platelet Volume 6.7, Neutrophils (%) (Auto) 74.7, Lymphocytes (%) (Auto) 14.8L, Monocytes (%) (Auto) 8.3, Eosinophils (%) (Auto) 0.8, Basophils (%) (Auto) 1.4, Sodium Level 142, Potassium Level 4.2, Chloride Level 105, Carbon Dioxide Level 31, Anion Gap 6, Blood Urea Nitrogen 16, Creatinine 1.2, Estimat Glomerular Filtration Rate > 60, Glucose Level 103, Calcium Level 9.1, Total Bilirubin 0.5, Aspartate Amino Transf (AST/SGOT) 54H, Alanine Aminotransferase (ALT/SGPT) 28, Alkaline Phosphatase 75, Total Protein 8.2, Albumin 2.5L, Globulin 5.7, Albumin/Globulin Ratio 0.4L Height (Feet): 5 Height (Inches): 9.00 Weight (Pounds): 125 General Appearance: no apparent distress EENT: normal ENT inspection Neck: supple Cardiovascular: normal rate Respiratory/Chest: decreased breath sounds Abdomen: normal bowel sounds, non tender, soft Extremities: non-tender Assessment/Plan Status: fever Assessment/Plan: jaw fracture dysphagia leukocytosis improved WBC plan PEG for tomorrow NGTF for now abx per ID will Ismael Randolph MD Jun 23, 2020 12:46
--- NOTE | 2020-06-23 15:34 | Diagnostic Imaging Report ---
Indication: Post nasogastric tube placement Technique: Supine view of the upper abdomen Comparison: 06/21/2020 Findings: Satisfactory position of nasogastric tube, tip projected level gastric fundus, proximal sidehole beyond the gastroesophageal junction. Visualized bowel gas is unremarkable. Included lower thorax demonstrates bilateral pulmonary infiltrates, right greater than left Impression: Satisfactory nasogastric intubation. Patient's nurse notified at the time of interpretation Other findings as noted
[2020-06-23 16:00] VITALS: BP 130/71
--- NOTE | 2020-06-23 16:33 | General Progress Note ---
Subjective Allergies: Coded Allergies: ASPIRIN (Verified Allergy, Unknown, 06/13/20) Subjective rec fever non verabal congested quit today s/egd Objective Last 24 Hour Vital Signs Date Time Temp Pulse Resp B/P (MAP) Pulse Ox O2 Delivery O2 Flow Rate FiO2 06/23/20 13:26 103 24 96 Venturi Mask 12.0 50 103 20 94 06/23/20 12:00 96.8 102 19 128/67 (87) 98 111 06/23/20 12:00 111 06/23/20 09:00 Venturi Mask 8.0 06/23/20 08:00 113 06/23/20 08:00 98.1 101 20 129/76 (93) 100 113 06/23/20 07:36 99 Venturi Mask 12.0 50 06/23/20 07:36 106 30 99 Venturi Mask 12.0 50 102 30 99 06/23/20 04:00 106 06/23/20 04:00 98.1 83 22 146/77 (100) 98 06/23/20 00:00 98.4 106 24 147/85 (105) 98 06/23/20 00:00 107 06/22/20 21:00 Venturi Mask 8.0 06/22/20 20:00 110 06/22/20 20:00 98.2 115 22 135/80 (98) 98 06/22/20 18:47 102 22 99 Nasal Cannula 2.0 28 104 22 97 06/22/20 18:46 98 Venturi Mask 8.0 40 Intake and Output 06/22/20 06/23/20 19:00 07:00 Intake Total 55 ml 110.0 ml Output Total 675 ml 400 ml Balance -620 ml -290.0 ml IV Total 110.0 ml Tube Feeding 55 ml Output Urine Total 675 ml 400 ml # Bowel Movements 1 Laboratory Tests 06/23/20 05:29: White Blood Count 15.0H, Red Blood Count 4.26L, Hemoglobin 12.5L, Hematocrit 37.8L, Mean Corpuscular Volume 89, Mean Corpuscular Hemoglobin 29.4, Mean Corpuscular Hemoglobin Concent 33.2, Red Cell Distribution Width 13.7, Platelet Count 555H, Mean Platelet Volume 6.7, Neutrophils (%) (Auto) 74.7, Lymphocytes (%) (Auto) 14.8L, Monocytes (%) (Auto) 8.3, Eosinophils (%) (Auto) 0.8, Basophils (%) (Auto) 1.4, Sodium Level 142, Potassium Level 4.2, Chloride Level 105, Carbon Dioxide Level 31, Anion Gap 6, Blood Urea Nitrogen 16, Creatinine 1.2, Estimat Glomerular Filtration Rate > 60, Glucose Level 103, Calcium Level 9.1, Total Bilirubin 0.5, Aspartate Amino Transf (AST/SGOT) 54H, Alanine Aminotransferase (ALT/SGPT) 28, Alkaline Phosphatase 75, Total Protein 8.2, Albumin 2.5L, Globulin 5.7, Albumin/Globulin Ratio 0.4L Height (Feet): 5 Height (Inches): 9.00 Weight (Pounds): 125 General Appearance: cachetic Neck: supple Cardiovascular: regular rhythm Respiratory/Chest: crackles/rales Abdomen: non tender, soft, no organomegaly Extremities: non-tender Assessment/Plan Status: fever Assessment/Plan: aspiration pneumonia dc rocephine, add zosyn cont broncodilaor tx, dw pulmonary consult 1 uti 2 fever 3 aloc 4 dementia 5 fall 6 failure of thrive 7 ac cardio-pulmonary arrest 8 old mandible fracture 9 dysphasia 10 failure of thrive need peg katelin gonzalez tolerating ng tube feeding aspiration precaution dc ivf cont iv abx dw charge nurse katelin dtr update her about his condition and plan egd tomorrow Jakob Munoz MD Jun 23, 2020 16:32
[2020-06-23] MEDS ORDERED: traMADol 50mg tab NG PRN (17:13)
[2020-06-23] MEDS ORDERED: Albuterol/Ipratropium 3ml neb HHN PRN (17:13)
[2020-06-23 20:00] VITALS: BP 139/76
[2020-06-23] MEDS: Acetaminophen 650mg/20.3ml NG PRN (23:14)
--- NOTE | 2020-06-23 23:40 | Psychiatric Progress Note ---
Psychiatry Progress Note Psychiatry Progress Note Medications Current Medications Medications (Trade) Dose Ordered Sig/Daniele Route PRN Reason Start Time Stop Time Status Last Admin Dose Admin Acetaminophen (Tylenol) 650 mg Q4H PRN NG Mild Pain (Pain Scale 1-3) 06/20/20 13:30 07/13/20 21:44 06/23/20 23:14 Acetaminophen (Tylenol) 650 mg Q6H PRN RECTAL Temp >100.5 06/16/20 15:43 07/16/20 15:42 06/21/20 09:16 Albuterol/ Ipratropium (Albuterol/ Ipratropium) 3 ml Q4H PRN HHN Shortness of Breath 06/23/20 17:13 06/28/20 17:12 Albuterol/ Ipratropium (Albuterol/ Ipratropium) 3 ml TIDRT HHN 06/20/20 19:00 06/25/20 18:59 06/23/20 13:25 Haloperidol Lactate (Haldol) 5 mg Q6H PRN IM Agitation 06/14/20 14:45 07/29/20 14:44 06/22/20 21:05 Heparin Sodium (Porcine) (Heparin 5000 units/ml) 5,000 units EVERY 12 HOURS SUBQ 06/14/20 09:00 07/29/20 08:59 06/22/20 21:10 Olanzapine (ZyPREXA) 5 mg BEDTIME NG 06/20/20 21:00 07/29/20 20:59 06/23/20 20:37 Piperacillin Sod/ Tazobactam Sod 3.375 gm/Sodium Chloride 110 ml @ 27.5 mls/hr Q8H IVPB 06/21/20 18:00 06/28/20 17:59 06/23/20 17:23 Tramadol HCl (Ultram) 50 mg Q6H PRN NG Moderate Pain (Pain Scale 4-6) 06/23/20 17:13 06/30/20 17:12 Neurological/Psychiatric: Reports: anxiety, depressed, emotional problems, weakness Allergies: Coded Allergies: ASPIRIN (Verified Allergy, Unknown, 06/13/20) Objective Data Height (Feet): 5 Height (Inches): 9.00 Weight (Pounds): 125 General Appearance: cachetic Additional Comments: waxing consciousness. Disoriented. Mood is anxious. Affect is flat. Thought process, there is a paucity of thought content. Thought content, no suicidal or homicidal ideation. Cognition is impaired. Insight and judgment is impaired. Assessment/Plan Mancelona I: ASSESSMENT: Mancelona I Dementia. Acute encephalopathy. Mancelona II Deferred. Mancelona III Multiple falls. Mancelona IV Low. Mancelona V 20. PLAN: 1. Zyprexa 5 mg. 2. Haldol p.r.n. 3. Discontinue Ativan IV and continue the p.o. 4. Discussed with the nurse. Status: fever Status Narrative ASSESSMENT: Mancelona I Dementia. Acute encephalopathy. Mancelona II Deferred. Mancelona III Multiple falls. Mancelona IV Low. Mancelona V 20. PLAN: 1. Zyprexa 5 mg. 2. Haldol p.r.n. 3. Discontinue Ativan IV and continue the p.o. 4. Discussed with the nurse. Assessment/Plan: ASSESSMENT: Mancelona I Dementia. Acute encephalopathy. Mancelona II Deferred. Mancelona III Multiple falls. Mancelona IV Low. Mancelona V 20. PLAN: 1. Zyprexa 5 mg. 2. Haldol p.r.n. 3. Discontinue Ativan IV and continue the p.o. 4. Discussed with the nurse. Joni Del Rosario MD Jun 23, 2020 23:40
[2020-06-24] VITALS (10 sets, daily range): BP systolic 101–136; BP diastolic 67–81
[2020-06-24] MEDS: Piperacillin/Tazobactam 3.375 GM in NS 110 ML IVPB SCH ×3 (01:00→17:18)
[2020-06-24] MEDS: Acetaminophen 650mg/20.3ml NG PRN (04:11)
[2020-06-24 06:50] LABS: BASOPHILS % (AUTO) 2.4 % (0.0-2.0); EOSINOPHILS % (AUTO) 0.5 % (0.0-3.0); HEMATOCRIT 40.4 % (42.0-52.0); HEMOGLOBIN 12.9 G/DL (14.2-18.0); LYMPHOCYTES % (AUTO) 15.3 % (20.0-45.0); MEAN CORPUSCULAR VOLUME 94 FL (80-99); MONOCYTES % (AUTO) 8.3 % (1.0-10.0); NEUTROPHILS % (AUTO) 73.6 % (45.0-75.0); PLATELET COUNT 535 K/UL (150-450); RED BLOOD COUNT 4.32 M/UL (4.70-6.10); RED CELL DISTRIBUTION WIDTH 13.1 % (11.6-14.8); WHITE BLOOD COUNT 15.3 K/UL (4.8-10.8)
[2020-06-24 07:05] LABS: ANION GAP 7 mmol/L (5-15); BLOOD UREA NITROGEN 18 mg/dL (7-18); CALCIUM 9.2 MG/DL (8.5-10.1); CARBON DIOXIDE 29 MMOL/L (21-32); CHLORIDE 106 MMOL/L (98-107); CREATININE 1.4 MG/DL (0.55-1.30); POTASSIUM 4.1 MMOL/L (3.5-5.1); SODIUM 142 MMOL/L (136-145)
[2020-06-24] MEDS: Albuterol/Ipratropium 3ml neb HHN SCH ×3 (07:49→19:19)
--- NOTE | 2020-06-24 08:20 | Pre-Procedure Note/Attestation ---
Pre-Procedure Note/Attestation Complete Prior to Procedure Planned Procedure: not applicable Procedure Narrative: egd/peg Indications for Procedure Pre-Operative Diagnosis: dysphagia Attestation I attest that I discussed the nature of the procedure; its benefits; risks and complications; and alternatives (and the risks and benefits of such alternatives), prior to the procedure, with the patient (or the patient's legal customer field representative). I attest that, if there was a reasonable possibility of needing a blood transfu guillermo, the patient (or the patient's legal customer field representative) was given the [facility] standardized written summary, pursuant to the Adalberto Gabi Blood Safety Act ([place] Health and Safety Code # 1645, as amended). I attest that I re-evaluated the patient just prior to the surgery and that there has been no change in the patient's H&P, except as documented below: Ismael Kwon MD Jun 24, 2020 08:20
[2020-06-24] MEDS: Haloperidol 5mg/ml Inj IM PRN (08:27)
[2020-06-24] MEDS ORDERED: Midazolam 2mg/2ml Inj ONE ×2 (09:00→14:29)
[2020-06-24] MEDS ORDERED: LR 1000ml ONE (09:00)
[2020-06-24] MEDS ORDERED: Succinylcholine 20mg/ml 10ml vial ONE (09:00)
[2020-06-24] MEDS: Heparin 5000 units/ml inj SUBQ SCH ×2 (09:00→21:42)
--- NOTE | 2020-06-24 09:00 | General Progress Note ---
Subjective ROS Limited/Unobtainable: No Allergies: Coded Allergies: ASPIRIN (Verified Allergy, Unknown, 06/13/20) Objective Last 24 Hour Vital Signs Date Time Temp Pulse Resp B/P (MAP) Pulse Ox O2 Delivery O2 Flow Rate FiO2 06/24/20 08:28 93 36 96 Mechanical Ventilator 06/24/20 07:49 114 28 90 Venturi Mask 12.0 50 110 26 88 06/24/20 07:49 88 Venturi Mask 12.0 50 06/24/20 04:41 98.7 06/24/20 04:00 99.9 94 22 120/76 (91) 98 06/24/20 03:44 102 06/24/20 00:00 99.6 116 22 112/73 (86) 95 06/23/20 23:44 99.5 06/23/20 23:32 129 06/23/20 21:00 Venturi Mask 8.0 06/23/20 20:10 98 Venturi Mask 12.0 50 06/23/20 20:00 98.1 102 20 139/76 (97) 96 06/23/20 19:42 109 06/23/20 16:00 107 06/23/20 16:00 96.7 101 18 130/71 (90) 98 06/23/20 13:26 103 24 96 Venturi Mask 12.0 50 103 20 94 06/23/20 12:00 96.8 102 19 128/67 (87) 98 111 06/23/20 12:00 111 06/23/20 09:00 Venturi Mask 8.0 Intake and Output 06/23/20 06/24/20 19:00 07:00 Intake Total 75 ml 280.0 ml Output Total 1200 ml 800 ml Balance -1125 ml -520.0 ml Free Water 70 ml IV Total 110.0 ml Tube Feeding 75 ml 100 ml Output Urine Total 1200 ml 800 ml # Voids 3 1 Laboratory Tests 06/24/20 05:26: White Blood Count 15.3H, Red Blood Count 4.32L, Hemoglobin 12.9L, Hematocrit 40.4L, Mean Corpuscular Volume 94, Mean Corpuscular Hemoglobin 29.9, Mean Corpuscular Hemoglobin Concent 31.9L, Red Cell Distribution Width 13.1, Platelet Count 535H, Mean Platelet Volume 6.8, Neutrophils (%) (Auto) 73.6, Lymphocytes (%) (Auto) 15.3L, Monocytes (%) (Auto) 8.3, Eosinophils (%) (Auto) 0.5, Basophils (%) (Auto) 2.4H, Sodium Level 142, Potassium Level 4.1, Chloride Level 106, Carbon Dioxide Level 29, Anion Gap 7, Blood Urea Nitrogen 18, Creatinine 1.4H, Estimat Glomerular Filtration Rate > 60, Glucose Level 120H, Calcium Level 9.2 Height (Feet): 6 Height (Inches): 6.00 Weight (Pounds): 128 General Appearance: lethargic EENT: normal ENT inspection Neck: supple Cardiovascular: tachycardia Respiratory/Chest: decreased breath sounds Abdomen: normal bowel sounds, non tender, soft Extremities: non-tender Assessment/Plan Status: fever Assessment/Plan: jaw fracture dysphagia leukocytosis improved WBC plan PEG for today abx per ID will Ismael Randolph MD Jun 24, 2020 09:00
--- NOTE | 2020-06-24 09:18 | Pulmonology Progress Note ---
Subjective ROS Limited/Unobtainable: No Interval Events: None new; for PEG today Constitutional: Denies: fever HEENT: Repors: no symptoms Respiratory: Reports: no symptoms Cardiovascular: Reports: no symptoms Gastrointestinal/Abdominal: Denies: diarrhea Genitourinary: Reports: no symptoms Allergies: Coded Allergies: ASPIRIN (Verified Allergy, Unknown, 06/13/20) Objective Last 24 Hour Vital Signs Date Time Temp Pulse Resp B/P (MAP) Pulse Ox O2 Delivery O2 Flow Rate FiO2 06/24/20 08:28 93 36 96 Mechanical Ventilator 06/24/20 07:49 114 28 90 Venturi Mask 12.0 50 110 26 88 06/24/20 07:49 88 Venturi Mask 12.0 50 06/24/20 04:41 98.7 06/24/20 04:00 99.9 94 22 120/76 (91) 98 06/24/20 03:44 102 06/24/20 00:00 99.6 116 22 112/73 (86) 95 06/23/20 23:44 99.5 06/23/20 23:32 129 06/23/20 21:00 Venturi Mask 8.0 06/23/20 20:10 98 Venturi Mask 12.0 50 06/23/20 20:00 98.1 102 20 139/76 (97) 96 06/23/20 19:42 109 06/23/20 16:00 107 06/23/20 16:00 96.7 101 18 130/71 (90) 98 06/23/20 13:26 103 24 96 Venturi Mask 12.0 50 103 20 94 06/23/20 12:00 96.8 102 19 128/67 (87) 98 111 06/23/20 12:00 111 Intake and Output 06/23/20 06/24/20 19:00 07:00 Intake Total 75 ml 280.0 ml Output Total 1200 ml 800 ml Balance -1125 ml -520.0 ml Free Water 70 ml IV Total 110.0 ml Tube Feeding 75 ml 100 ml Output Urine Total 1200 ml 800 ml # Voids 3 1 General Appearance: no acute distress HEENT: normocephalic Respiratory: chest wall non-tender, lungs clear Cardiovascular: normal peripheral pulses, regular rhythm Abdomen: normal bowel sounds Laboratory Tests 06/24/20 05:26: White Blood Count 15.3H, Red Blood Count 4.32L, Hemoglobin 12.9L, Hematocrit 40.4L, Mean Corpuscular Volume 94, Mean Corpuscular Hemoglobin 29.9, Mean Corpuscular Hemoglobin Concent 31.9L, Red Cell Distribution Width 13.1, Platelet Count 535H, Mean Platelet Volume 6.8, Neutrophils (%) (Auto) 73.6, Lymphocytes (%) (Auto) 15.3L, Monocytes (%) (Auto) 8.3, Eosinophils (%) (Auto) 0.5, Basop hils (%) (Auto) 2.4H, Sodium Level 142, Potassium Level 4.1, Chloride Level 106, Carbon Dioxide Level 29, Anion Gap 7, Blood Urea Nitrogen 18, Creatinine 1.4H, Estimat Glomerular Filtration Rate > 60, Glucose Level 120H, Calcium Level 9.2 Current Medications Medications (Trade) Dose Ordered Sig/Daniele Route PRN Reason Start Time Stop Time Status Last Admin Dose Admin Acetaminophen (Tylenol) 650 mg Q4H PRN NG Mild Pain (Pain Scale 1-3) 06/20/20 13:30 07/13/20 21:44 06/24/20 04:11 Acetaminophen (Tylenol) 650 mg Q6H PRN RECTAL Temp >100.5 06/16/20 15:43 07/16/20 15:42 06/21/20 09:16 Albuterol/ Ipratropium (Albuterol/ Ipratropium) 3 ml Q4H PRN HHN Shortness of Breath 06/23/20 17:13 06/28/20 17:12 Albuterol/ Ipratropium (Albuterol/ Ipratropium) 3 ml TIDRT HHN 06/20/20 19:00 06/25/20 18:59 06/24/20 07:49 Haloperidol Lactate (Haldol) 5 mg Q6H PRN IM Agitation 06/14/20 14:45 07/29/20 14:44 06/24/20 08:27 Heparin Sodium (Porcine) (Heparin 5000 units/ml) 5,000 units EVERY 12 HOURS SUBQ 06/14/20 09:00 07/29/20 08:59 06/22/20 21:10 Olanzapine (ZyPREXA) 5 mg BEDTIME NG 06/20/20 21:00 07/29/20 20:59 06/23/20 20:37 Piperacillin Sod/ Tazobactam Sod 3.375 gm/Sodium Chloride 110 ml @ 27.5 mls/hr Q8H IVPB 06/21/20 18:00 06/28/20 17:59 06/24/20 01:00 Tramadol HCl (Ultram) 50 mg Q6H PRN NG Moderate Pain (Pain Scale 4-6) 06/23/20 17:13 06/30/20 17:12 Assessment/Plan Assessment/Plan IMPRESSION: 1. Pulmonary congestion; suspect difficulty with handling upper airway secretions; no pneumonia on CXR 2. Altered mental status. 3. Dementia. 4. Jaw fracture. 5. Status post fall. 6. Depression. DISCUSSION: Continue broad-spectrum antibiotics. I would recommend keeping NPO and consideration of alternate methods of nutrition unless his mental status improves. Minimize sedation. I will follow carefully. Continue low flow O2; now on ventimask Needs PEG; scheduled for today DC planning to [facility] Chandrakant Singh M.D. Chandrakant Singh MD Jun 24, 2020 09:18
--- NOTE | 2020-06-24 09:54 | CDS Physician Query ---
Clarification is required for compliance, coding accuracy, and to reflect severity of illness for this patient Dear Dr. Jonathan Munoz Date: 06/24/2020 Talent Acquisition Associate/CDS Name: Margarita Trevino Clinical Documentation states: HNP: 74-year-old male...has been peeing allover the place and was having urinary incontinency and dehydration...Altered mental status 06/23 progress note: 1 uti 2 fever 3 aloc 4 dementia 5 fall 6 failure of thrive 7 ac cardio-pulmonary arrest 8 old mandible fracture 9 dysphasia 10 failure of thrive need peg BMI 14.8 Albumin 2.5 Please select the most appropriate option: [] Protein/Calorie Malnutrition [] Mild [] Moderate [] Severe [] Hypoalbuminemia [] Cachexia [] Underweight [] Intestinal malabsorption [] Other [] Unable to determine [] Not Applicable Present on Admission: [] Yes [] No [] Clinically Undetermined Physician signature Date Please also document in your Progress Notes and/or Discharge Summary and indicate if the condition was present on admission. MTDD
--- NOTE | 2020-06-24 10:37 | Infectious Diseases Prog Note ---
Assessment/Plan Assessment/Plan antibiotics : zosyn 06.21.20 - A 1. pneumonia 2. Dementia. 3. Depression. 4. History of mandibular fracture status post surgery. 5. leucocytosis P 1. continue zosyn 3 more days 2. will follow up cultures Subjective ROS Limited/Unobtainable: Yes Allergies: Coded Allergies: ASPIRIN (Verified Allergy, Unknown, 06/13/20) Objective Last 24 Hour Vital Signs Date Time Temp Pulse Resp B/P (MAP) Pulse Ox O2 Delivery O2 Flow Rate FiO2 06/24/20 09:00 Venturi Mask 8.0 06/24/20 08:28 93 36 96 Mechanical Ventilator 06/24/20 08:00 121 06/24/20 08:00 98.6 104 21 133/81 (98) 93 06/24/20 07:49 114 28 90 Venturi Mask 12.0 50 110 26 88 06/24/20 07:49 88 Venturi Mask 12.0 50 06/24/20 04:41 98.7 06/24/20 04:00 99.9 94 22 120/76 (91) 98 06/24/20 03:44 102 06/24/20 00:00 99.6 116 22 112/73 (86) 95 06/23/20 23:44 99.5 06/23/20 23:32 129 06/23/20 21:00 Venturi Mask 8.0 06/23/20 20:10 98 Venturi Mask 12.0 50 06/23/20 20:00 98.1 102 20 139/76 (97) 96 06/23/20 19:42 109 06/23/20 16:00 107 06/23/20 16:00 96.7 101 18 130/71 (90) 98 06/23/20 13:26 103 24 96 Venturi Mask 12.0 50 103 20 94 06/23/20 12:00 96.8 102 19 128/67 (87) 98 111 06/23/20 12:00 111 Height (Feet): 6 Height (Inches): 6.00 Weight (Pounds): 128 Respiratory/Chest: crackles/rales - decreased Cardiovascular: normal rate, regular rhythm, no gallop/murmur Abdomen: soft, non tender Extremities: no edema Laboratory Tests Test 06/24/20 05:26 White Blood Count 15.3 K/UL (4.8-10.8) H Red Blood Count 4.32 M/UL (4.70-6.10) L Hemoglobin 12.9 G/DL (14.2-18.0) L Hematocrit 40.4 % (42.0-52.0) L Mean Corpuscular Volume 94 FL (80-99) Mean Corpuscular Hemoglobin 29.9 PG (27.0-31.0) Mean Corpuscular Hemoglobin Concent 31.9 G/DL (32.0-36.0) L Red Cell Distribution Width 13.1 % (11.6-14.8) Platelet Count 535 K/UL (150-450) H Mean Platelet Volume 6.8 FL (6.5-10.1) Neutrophils (%) (Auto) 73.6 % (45.0-75.0) Lymphocytes (%) (Auto) 15.3 % (20.0-45.0) L Monocytes (%) (Auto) 8.3 % (1.0-10.0) Eosinophils (%) (Auto) 0.5 % (0.0-3.0) Basophils (%) (Auto) 2.4 % (0.0-2.0) H Sodium Level 142 MMOL/L (136-145) Potassium Level 4.1 MMOL/L (3.5-5.1) Chloride Level 106 MMOL/L (98-107) Carbon Dioxide Level 29 MMOL/L (21-32) Anion Gap 7 mmol/L (5-15) Blood Urea Nitrogen 18 mg/dL (7-18) Creatinine 1.4 MG/DL (0.55-1.30) H Estimat Glomerular Filtration Rate > 60 mL/min (>60) Glucose Level 120 MG/DL (74-106) H Calcium Level 9.2 MG/DL (8.5-10.1) Current Medications Medications (Trade) Dose Ordered Sig/Daniele Route PRN Reason Start Time Stop Time Status Last Admin Dose Admin Acetaminophen (Tylenol) 650 mg Q4H PRN NG Mild Pain (Pain Scale 1-3) 06/20/20 13:30 07/13/20 21:44 06/24/20 04:11 Acetaminophen (Tylenol) 650 mg Q6H PRN RECTAL Temp >100.5 06/16/20 15:43 07/16/20 15:42 06/21/20 09:16 Albuterol/ Ipratropium (Albuterol/ Ipratropium) 3 ml Q4H PRN HHN Shortness of Breath 06/23/20 17:13 06/28/20 17:12 Albuterol/ Ipratropium (Albuterol/ Ipratropium) 3 ml TIDRT HHN 06/20/20 19:00 06/25/20 18:59 06/24/20 07:49 Haloperidol Lactate (Haldol) 5 mg Q6H PRN IM Agitation 06/14/20 14:45 07/29/20 14:44 06/24/20 08:27 Heparin Sodium (Porcine) (Heparin 5000 units/ml) 5,000 units EVERY 12 HOURS SUBQ 06/14/20 09:00 07/29/20 08:59 06/22/20 21:10 Olanzapine (ZyPREXA) 5 mg BEDTIME NG 06/20/20 21:00 07/29/20 20:59 06/23/20 20:37 Piperacillin Sod/ Tazobactam Sod 3.375 gm/Sodium Chloride 110 ml @ 27.5 mls/hr Q8H IVPB 06/21/20 18:00 06/28/20 17:59 06/24/20 09:35 Tramadol HCl (Ultram) 50 mg Q6H PRN NG Moderate Pain (Pain Scale 4-6) 06/23/20 17:13 06/30/20 17:12 Viviane Botello MD Jun 24, 2020 10:37
[2020-06-24] MEDS ORDERED: NS 500ML IVPB ONE (14:10)
--- NOTE | 2020-06-24 14:42 | Endoscopy Procedure Note ---
Endoscopy Procedure Note General Indication for Procedure: dysphagia Procedures Performed: EGD, PEG Operative Findings/Diagnosis: same Specimen: none Pt Tolerated Procedure Well: Yes Estimated Blood Loss: none Anesthesia Anesthesiologist: mary Anesthesia: MAC Inserted Devices Implant(s) used?: No GI Core Measures 50 yrs or older w/o bx or poly: Not Applicable 10yrs. F/U recommended: Not Applicable Ismael Kwon MD Jun 24, 2020 14:42
[2020-06-24] MEDS ORDERED: LORazepam Inj 2mg/ml 1ml IV PRN (14:45)
[2020-06-24] MEDS ORDERED: Atropine Sulfate 0.4mg/ml inj IVP PRN (14:45)
[2020-06-24] MEDS ORDERED: oxyCODONE HCL/Acetaminophen 5/325mg ORAL PRN (14:45)
[2020-06-24] MEDS ORDERED: Midazolam 2mg/2ml Inj IVP PRN (14:45)
[2020-06-24] MEDS ORDERED: HYDROcodone/Acetamin 5/325 tab ORAL PRN (14:45)
[2020-06-24] MEDS ORDERED: Labetalol 5mg/ml 20ml vial IV PRN (14:45)
[2020-06-24] MEDS ORDERED: fentaNYL 100 mcg/2 mL IV PRN (14:45)
[2020-06-24] MEDS ORDERED: Hydromorphone 0.5mg/0.5ml inj IVP PRN (14:45)
[2020-06-24] MEDS ORDERED: LR 1000ml 1,000 ML IVLG SCH (14:45)
[2020-06-24] MEDS ORDERED: HYDROcodone/Acetamin 7.5/325 tab ORAL PRN (14:45)
[2020-06-24] MEDS ORDERED: DiphenhydrAMINE 50mg/ml Inj IVP PRN (14:45)
--- NOTE | 2020-06-24 14:46 | Anethesia Preoperative Eval ---
Anesthesia Pre-op PMH/ROS General Date of Evaluation: Jun 24, 2020 Time of Evaluation: 14:24 Anesthesiologist: Lachelle ASA Score: ASA 4 Mallampati Score Class I : Soft palate, uvula, fauces, pillars visible Class II: Soft palate, uvula, fauces visible Class III: Soft palate, base of uvula visible Class IV: Only hard plate visible Mallampati Classification: Class II Surgeon: Cher Diagnosis: Demented Surgical Procedure: PEG Anesthesia History: none Family History: no anesthesia problems Allergies: Coded Allergies: ASPIRIN (Verified Allergy, Unknown, 06/13/20) Medications: see eMAR Patient NPO?: Yes Past Medical History Cardiovascular: Reports: HTN Gastrointestinal/Genitourinary: Reports: other - UTI Neurologic/Psychiatric: Reports: dementia Hematology/Immune: Reports: other - Leukemia Anesthesia Pre-op Phys. Exam Physician Exam Last Vital Signs Date Time Temp Pulse Resp B/P (MAP) Pulse Ox O2 Delivery O2 Flow Rate FiO2 06/24/20 13:27 114 28 90 Non-Rebreather 6.0 35 102 20 93 06/24/20 12:00 97.7 136/77 (96) Constitutional: NAD Neurologic: CN 2-12 intact Cardiovascular: RRR Respiratory: CTA Gastrointestinal: S/NT/ND Airway Exam Mallampati Score: Class II MO: limited ROM: limited Teeth: missing Dentures: upper, lower Anesthesia Pre-op A/P Labs Hematology Test 06/24/20 05:26 White Blood Count 15.3 K/UL (4.8-10.8) H Red Blood Count 4.32 M/UL (4.70-6.10) L Hemoglobin 12.9 G/DL (14.2-18.0) L Hematocrit 40.4 % (42.0-52.0) L Mean Corpuscular Volume 94 FL (80-99) Mean Corpuscular Hemoglobin 29.9 PG (27.0-31.0) Mean Corpuscular Hemoglobin Concent 31.9 G/DL (32.0-36.0) L Red Cell Distribution Width 13.1 % (11.6-14.8) Platelet Count 535 K/UL (150-450) H Mean Platelet Volume 6.8 FL (6.5-10.1) Neutrophils (%) (Auto) 73.6 % (45.0-75.0) Lymphocytes (%) (Auto) 15.3 % (20.0-45.0) L Monocytes (%) (Auto) 8.3 % (1.0-10.0) Eosinophils (%) (Auto) 0.5 % (0.0-3.0) Basophils (%) (Auto) 2.4 % (0.0-2.0) H Chemistry Test 06/24/20 05:26 Sodium Level 142 MMOL/L (136-145) Potassium Level 4.1 MMOL/L (3.5-5.1) Chloride Level 106 MMOL/L (98-107) Carbon Dioxide Level 29 MMOL/L (21-32) Anion Gap 7 mmol/L (5-15) Blood Urea Nitrogen 18 mg/dL (7-18) Creatinine 1.4 MG/DL (0.55-1.30) H Estimat Glomerular Filtration Rate > 60 mL/min (>60) Glucose Level 120 MG/DL (74-106) H Calcium Level 9.2 MG/DL (8.5-10.1) Risk Assessment & Plan Assessment: ASA 4 Plan: TIVA Status Change Before Surgery: No Aron Larose MD Jun 24, 2020 14:46
--- NOTE | 2020-06-24 14:47 | 48 Hour Post Anesthesia Eval ---
Post Anesthesia Evaluation Procedure: PEG Date of Evaluation: Jun 24, 2020 Time of Evaluation: 17:12 Blood Pressure Systolic: 156 0: 94 Pulse Rate: 110 Respiratory Rate: 18 Temperature (Fahrenheit): 98.2 O2 Sat by Pulse Oximetry: 100 Airway: patent Nausea: No Vomiting: No Pain Intensity: 0 Hydration Status: adequate Cardiopulmonary Status: Stable Mental Status/LOC: patient returned to baseline Follow-up Care/Observations: 0 Post-Anesthesia Complications: 0 Follow-up care needed: N/A Aron Larose MD Jun 24, 2020 14:47
--- NOTE | 2020-06-24 14:47 | Immediate Post-Op Evaluation ---
Immediate Post-Op Evalulation Immediate Post-Op Evalulation Procedure: PEG Date of Evaluation: Jun 24, 2020 Time of Evaluation: 15:08 IV Fluids: 400 NS Blood Products: 0 Estimated Blood Loss: 2 Urinary Output: 0 Blood Pressure Systolic: 114 Blood Pressure Diastolic: 73 Pulse Rate: 109 Respiratory Rate: 16 O2 Sat by Pulse Oximetry: 100 Temperature (Fahrenheit): 98 Pain Score (1-10): 0 Nausea: No Vomiting: No Complications 0 Patient Status: awake, reacts, patent, none Hydration Status: adequate Aron Larose MD Jun 24, 2020 14:47
--- NOTE | 2020-06-24 15:28 | General Progress Note ---
Subjective Allergies: Coded Allergies: ASPIRIN (Verified Allergy, Unknown, 06/13/20) Subjective non verabal congested quiter s/p egd today Objective Last 24 Hour Vital Signs Date Time Temp Pulse Resp B/P (MAP) Pulse Ox O2 Delivery O2 Flow Rate FiO2 06/24/20 15:07 105 18 118/71 100 Venturi Mask 8 06/24/20 15:02 107 17 104/68 100 Venturi Mask 8 06/24/20 14:57 98.0 108 16 114/73 100 Venturi Mask 8 06/24/20 14:57 110 18 100 06/24/20 14:55 109 16 100 06/24/20 13:27 114 28 90 Non-Rebreather 6.0 35 102 20 93 06/24/20 12:00 96 06/24/20 12:00 97.7 87 23 136/77 (96) 99 06/24/20 09:00 Venturi Mask 8.0 06/24/20 08:28 93 36 96 Mechanical Ventilator 06/24/20 08:00 121 06/24/20 08:00 98.6 104 21 133/81 (98) 93 06/24/20 07:49 114 28 90 Venturi Mask 12.0 50 110 26 88 06/24/20 07:49 88 Venturi Mask 12.0 50 06/24/20 04:41 98.7 06/24/20 04:00 99.9 94 22 120/76 (91) 98 06/24/20 03:44 102 06/24/20 00:00 99.6 116 22 112/73 (86) 95 06/23/20 23:44 99.5 06/23/20 23:32 129 06/23/20 21:00 Venturi Mask 8.0 06/23/20 20:10 98 Venturi Mask 12.0 50 06/23/20 20:00 98.1 102 20 139/76 (97) 96 06/23/20 19:42 109 06/23/20 16:00 107 06/23/20 16:00 96.7 101 18 130/71 (90) 98 Intake and Output 06/23/20 06/24/20 19:00 07:00 Intake Total 75 ml 280.0 ml Output Total 1200 ml 800 ml Balance -1125 ml -520.0 ml Free Water 70 ml IV Total 110.0 ml Tube Feeding 75 ml 100 ml Output Urine Total 1200 ml 800 ml # Voids 3 1 Laboratory Tests 06/24/20 05:26: White Blood Count 15.3H, Red Blood Count 4.32L, Hemoglobin 12.9L, Hematocrit 40.4L, Mean Corpuscular Volume 94, Mean Corpuscular Hemoglobin 29.9, Mean Corpuscular Hemoglobin Concent 31.9L, Red Cell Distribution Width 13.1, Platelet Count 535H, Mean Platelet Volume 6.8, Neutrophils (%) (Auto) 73.6, Lymphocytes (%) (Auto) 15.3L, Monocytes (%) (Auto) 8.3, Eosinophils (%) (Auto) 0.5, Basophils (%) (Auto) 2.4H, Sodium Level 142, Potassium Level 4.1, Chloride Level 106, Carbon Dioxide Level 29, Anion Gap 7, Blood Urea Nitrogen 18, Creatinine 1.4H, Estimat Glomerular Filtration Rate > 60, Glucose Level 120H, Calcium Level 9.2 Height (Feet): 6 Height (Inches): 6.00 Weight (Pounds): 128 General Appearance: lethargic Neck: supple Cardiovascular: regular rhythm Respiratory/Chest: normal breath sounds Abdomen: non tender, soft Extremities: non-tender Assessment/Plan Status: fever Assessment/Plan: aspiration pneumonia dc rocephine, add zosyn cont madeline tx, katelin pulmonary consult 1 uti 2 fever 3 aloc 4 dementia 5 fall 6 failure of thrive 7 ac cardio-pulmonary arrest 8 old mandible fracture 9 dysphasia 10 failure of thrive need peg katelin gonzalez s/p peg feeding per gi aspiration precaution cont iv abx dw charge nurse katelin dtr update her about his condition and plan Jakob Munoz MD Jun 24, 2020 15:28
--- NOTE | 2020-06-24 16:00 | Procedure Note ---
DATE OF PROCEDURE: 06/24/2020 ENDOSCOPIST: Ismael Kwon MD ANESTHESIOLOGIST: Aron Larose MD PROCEDURE PERFORMED: Upper endoscopy with PEG placement. INSTRUMENT USED: Olympus adult flexible upper endoscope. INDICATIONS FOR PROCEDURE: Dysphagia. The procedure, risks, benefits, and possible consequences, including hemorrhage, aspiration, perforation and infection, and alternative treatments, were explained to the patient/legal guardian by Dr. Ismael Kwon and the patient/legal guardian understood and accepted these risks. DESCRIPTION OF PROCEDURE: After informed consent was obtained and the patient was adequately sedated, the Olympus upper endoscope was advanced through the mouth into the second portion of the duodenum and retroflexion maneuver was performed in the stomach. Under endoscopic guidance and sterile conditions, a 20-[place] pull type of G-tube was successfully placed in the epigastric area. The distance from the tip of the tube to skin was about 2.5 cm in size. The patient tolerated the procedure very well without any complications. SUMMARY OF FINDINGS: Status post successful PEG placement. RECOMMENDATIONS: 1. Elevate the head of the bed at all times. 2. G-tube flush. 3. G-tube care. 4. Start tube feeding later today. I want to thank Dr. Munoz for this kind referral. Ismael Kwon M.D. DR: ANDREW JOB#: [id number] CC: Jonathan Munoz M.D.; Fax#: [phone]
--- NOTE | 2020-06-24 21:06 | Cardiology Progress Note ---
Assessment/Plan Assessment/Plan 1. Sinus tachycardia, resolved, likely due to intravascular volume depletion, continue hydration, 2D echo shows normal LVEF. 2. Syncope, most likely due to hypovolemia versus neurocardiogenic, normal LV fxn. 3. Right lung pneumonia, suspect aspiration, continue IV antibiotics. 4. Status post fall with jaw fracture. Subjective Subjective Sinus rhythm at rate of 98. On venturi mask. Objective Last 24 Hour Vital Signs Date Time Temp Pulse Resp B/P (MAP) Pulse Ox O2 Delivery O2 Flow Rate FiO2 06/24/20 19:20 98 22 99 Venturi Mask 6.0 35 93 18 98 06/24/20 19:20 98 Venturi Mask 6.0 35 06/24/20 16:00 95 06/24/20 15:30 98.0 100 20 101/70 100 Venturi Mask 8 06/24/20 15:17 102 19 106/69 100 Venturi Mask 8 06/24/20 15:07 105 18 118/71 100 Venturi Mask 8 06/24/20 15:02 107 17 104/68 100 Venturi Mask 8 06/24/20 14:57 98.0 108 16 114/73 100 Venturi Mask 8 06/24/20 14:57 110 18 100 06/24/20 14:55 109 16 100 06/24/20 13:27 114 28 90 Non-Rebreather 6.0 35 102 20 93 06/24/20 12:00 96 06/24/20 12:00 97.7 87 23 136/77 (96) 99 06/24/20 09:00 Venturi Mask 8.0 06/24/20 08:28 93 36 96 Mechanical Ventilator 06/24/20 08:00 121 06/24/20 08:00 98.6 104 21 133/81 (98) 93 06/24/20 07:49 114 28 90 Venturi Mask 12.0 50 110 26 88 06/24/20 07:49 88 Venturi Mask 12.0 50 06/24/20 04:41 98.7 06/24/20 04:00 99.9 94 22 120/76 (91) 98 06/24/20 03:44 102 06/24/20 00:00 99.6 116 22 112/73 (86) 95 06/23/20 23:44 99.5 06/23/20 23:32 129 Intake and Output 06/23/20 06/24/20 19:00 07:00 Intake Total 75 ml 280.0 ml Output Total 1200 ml 800 ml Balance -1125 ml -520.0 ml Free Water 70 ml IV Total 110.0 ml Tube Feeding 75 ml 100 ml Output Urine Total 1200 ml 800 ml # Voids 3 1 2D Echo: EF 60%, Small Pericardial Eff, RVSP 41 mmHg, Grade I LVDD, Mild AR Laboratory Tests Test 06/24/20 05:26 White Blood Count 15.3 K/UL (4.8-10.8) H Red Blood Count 4.32 M/UL (4.70-6.10) L Hemoglobin 12.9 G/DL (14.2-18.0) L Hematocrit 40.4 % (42.0-52.0) L Mean Corpuscular Volume 94 FL (80-99) Mean Corpuscular Hemoglobin 29.9 PG (27.0-31.0) Mean Corpuscular Hemoglobin Concent 31.9 G/DL (32.0-36.0) L Red Cell Distribution Width 13.1 % (11.6-14.8) Platelet Count 535 K/UL (150-450) H Mean Platelet Volume 6.8 FL (6.5-10.1) Neutrophils (%) (Auto) 73.6 % (45.0-75.0) Lymphocytes (%) (Auto) 15.3 % (20.0-45.0) L Monocytes (%) (Auto) 8.3 % (1.0-10.0) Eosinophils (%) (Auto) 0.5 % (0.0-3.0) Basophils (%) (Auto) 2.4 % (0.0-2.0) H Sodium Level 142 MMOL/L (136-145) Potassium Level 4.1 MMOL/L (3.5-5.1) Chloride Level 106 MMOL/L (98-107) Carbon Dioxide Level 29 MMOL/L (21-32) Anion Gap 7 mmol/L (5-15) Blood Urea Nitrogen 18 mg/dL (7-18) Creatinine 1.4 MG/DL (0.55-1.30) H Estimat Glomerular Filtration Rate > 60 mL/min (>60) Glucose Level 120 MG/DL (74-106) H Calcium Level 9.2 MG/DL (8.5-10.1) Microbiology Date/Time Source Procedure Growth Status 06/23/20 17:45 Sputum Gram Stain - Final Resulted 06/23/20 17:45 Sputum Sputum Culture Pending Resulted Objective HEENT: Atraumatic and normocephalic. Anicteric. Pupils are equal, round, and reactive to light and accommodation. On venturi mask. NECK: JVP less than 5 cm. No carotid bruit. CARDIOVASCULAR: Normal S1, S2. Regular rate and rhythm. No murmurs, gallops, or rubs. LUNGS: Clear to auscultation bilaterally. ABDOMEN: Soft, nontender, nondistended. No hepatosplenomegaly. Positive bowel sounds. EXTREMITIES: No evidence of edema, clubbing, or cyanosis. Jimbo Kebede MD Jun 24, 2020 21:05
[2020-06-25] VITALS: BP 134/70
[2020-06-25] MEDS: Piperacillin/Tazobactam 3.375 GM in NS 110 ML IVPB SCH ×3 (02:10→17:36)
[2020-06-25 04:00] VITALS: BP 126/71
[2020-06-25 08:00] VITALS: BP 138/74
--- NOTE | 2020-06-25 08:17 | Endoscopy Procedure Note ---
Endoscopy Procedure Note General Indication for Procedure: dysphagia Procedures Performed: EGD, PEG Operative Findings/Diagnosis: same Specimen: none Pt Tolerated Procedure Well: Yes Estimated Blood Loss: none Anesthesia Anesthesiologist: mary Anesthesia: MAC Inserted Devices Implant(s) used?: No GI Core Measures 50 yrs or older w/o bx or poly: Not Applicable 10yrs. F/U recommended: Not Applicable Ismael Kwon MD Jun 25, 2020 08:17
--- NOTE | 2020-06-25 08:19 | General Progress Note ---
Subjective ROS Limited/Unobtainable: No Allergies: Coded Allergies: ASPIRIN (Verified Allergy, Unknown, 06/13/20) Objective Last 24 Hour Vital Signs Date Time Temp Pulse Resp B/P (MAP) Pulse Ox O2 Delivery O2 Flow Rate FiO2 06/25/20 07:59 96 22 99 Venturi Mask 6.0 35 95 18 98 06/25/20 07:59 98 Venturi Mask 6.0 35 06/25/20 04:00 98.1 80 20 126/71 (89) 100 06/25/20 04:00 70 06/25/20 02:41 78 122/61 06/25/20 01:19 99 06/25/20 00:00 99.2 94 20 134/70 (91) 98 06/25/20 00:00 78 06/24/20 21:00 Venturi Mask 8.0 06/24/20 20:00 100 06/24/20 20:00 98.9 90 20 118/67 (84) 96 06/24/20 19:20 98 22 99 Venturi Mask 6.0 35 93 18 98 06/24/20 19:20 98 Venturi Mask 6.0 35 06/24/20 16:00 95 06/24/20 15:30 98.0 100 20 101/70 100 Venturi Mask 8 06/24/20 15:17 102 19 106/69 100 Venturi Mask 8 06/24/20 15:07 105 18 118/71 100 Venturi Mask 8 06/24/20 15:02 107 17 104/68 100 Venturi Mask 8 06/24/20 14:57 98.0 108 16 114/73 100 Venturi Mask 8 06/24/20 14:57 110 18 100 06/24/20 14:55 109 16 100 06/24/20 13:27 114 28 90 Non-Rebreather 6.0 35 102 20 93 06/24/20 12:00 96 06/24/20 12:00 97.7 87 23 136/77 (96) 99 06/24/20 09:00 Venturi Mask 8.0 06/24/20 08:28 93 36 96 Mechanical Ventilator Intake and Output 06/24/20 06/25/20 19:00 07:00 Intake Total 300 ml Output Total 400 ml 400 ml Balance -100 ml -400 ml IV Total 300 ml Output Urine Total 400 ml 400 ml # Voids 1 Height (Feet): 6 Height (Inches): 6.00 Weight (Pounds): 128 General Appearance: lethargic EENT: normal ENT inspection Neck: supple Cardiovascular: tachycardia Respiratory/Chest: decreased breath sounds Abdomen: hypoactive bowel sounds Extremities: non-tender Assessment/Plan Status: fever Assessment/Plan: jaw fracture dysphagia leukocytosis VT s/p PEG placement yesterday GTF monitor for residuals fu cardiology Ismael Kwon MD Jun 25, 2020 08:19
[2020-06-25 09:19] LABS: BASOPHILS % (AUTO) 1.9 % (0.0-2.0); EOSINOPHILS % (AUTO) 2.2 % (0.0-3.0); HEMATOCRIT 38.9 % (42.0-52.0); HEMOGLOBIN 12.2 G/DL (14.2-18.0); LYMPHOCYTES % (AUTO) 19.5 % (20.0-45.0); MEAN CORPUSCULAR VOLUME 93 FL (80-99); MONOCYTES % (AUTO) 6.3 % (1.0-10.0); NEUTROPHILS % (AUTO) 70.2 % (45.0-75.0); PLATELET COUNT 485 K/UL (150-450); RED BLOOD COUNT 4.16 M/UL (4.70-6.10); RED CELL DISTRIBUTION WIDTH 13.3 % (11.6-14.8); WHITE BLOOD COUNT 11.2 K/UL (4.8-10.8)
[2020-06-25] MEDS: Heparin 5000 units/ml inj SUBQ SCH ×2 (09:29→20:36)
[2020-06-25 10:15] LABS: ANION GAP 6 mmol/L (5-15); BLOOD UREA NITROGEN 24 mg/dL (7-18); CALCIUM 8.7 MG/DL (8.5-10.1); CARBON DIOXIDE 28 MMOL/L (21-32); CHLORIDE 108 MMOL/L (98-107); CREATININE 1.1 MG/DL (0.55-1.30); POTASSIUM 3.8 MMOL/L (3.5-5.1); SODIUM 142 MMOL/L (136-145)
--- NOTE | 2020-06-25 11:38 | Pulmonology Progress Note ---
Subjective ROS Limited/Unobtainable: No Interval Events: None new; s/p PEG Constitutional: Denies: fever HEENT: Repors: no symptoms Respiratory: Reports: no symptoms Cardiovascular: Reports: no symptoms Gastrointestinal/Abdominal: Denies: diarrhea Genitourinary: Reports: no symptoms Allergies: Coded Allergies: ASPIRIN (Verified Allergy, Unknown, 06/13/20) Objective Last 24 Hour Vital Signs Date Time Temp Pulse Resp B/P (MAP) Pulse Ox O2 Delivery O2 Flow Rate FiO2 06/25/20 09:28 78 138/74 06/25/20 09:00 Venturi Mask 6.0 06/25/20 08:00 84 06/25/20 08:00 98.2 78 20 138/74 (95) 96 06/25/20 07:59 96 22 99 Venturi Mask 6.0 35 95 18 98 06/25/20 07:59 98 Venturi Mask 6.0 35 06/25/20 04:00 98.1 80 20 126/71 (89) 100 06/25/20 04:00 70 06/25/20 02:41 78 122/61 06/25/20 01:19 99 06/25/20 00:00 99.2 94 20 134/70 (91) 98 06/25/20 00:00 78 06/24/20 21:00 Venturi Mask 8.0 06/24/20 20:00 100 06/24/20 20:00 98.9 90 20 118/67 (84) 96 06/24/20 19:20 98 22 99 Venturi Mask 6.0 35 93 18 98 06/24/20 19:20 98 Venturi Mask 6.0 35 06/24/20 16:00 95 06/24/20 15:30 98.0 100 20 101/70 100 Venturi Mask 8 06/24/20 15:17 102 19 106/69 100 Venturi Mask 8 06/24/20 15:07 105 18 118/71 100 Venturi Mask 8 06/24/20 15:02 107 17 104/68 100 Venturi Mask 8 06/24/20 14:57 98.0 108 16 114/73 100 Venturi Mask 8 06/24/20 14:57 110 18 100 06/24/20 14:55 109 16 100 06/24/20 13:27 114 28 90 Non-Rebreather 6.0 35 102 20 93 11/13/20 12:00 96 06/24/20 12:00 97.7 87 23 136/77 (96) 99 Intake and Output 06/24/20 06/25/20 19:00 07:00 Intake Total 300 ml Output Total 400 ml 400 ml Balance -100 ml -400 ml IV Total 300 ml Output Urine Total 400 ml 400 ml # Voids 1 General Appearance: no acute distress HEENT: normocephalic Respiratory: chest wall non-tender, lungs clear Cardiovascular: normal peripheral pulses, regular rhythm Abdomen: normal bowel sounds Microbiology Date/Time Source Procedure Growth Status 06/23/20 17:45 Sputum Gram Stain - Final Resulted 06/23/20 17:45 Sputum Culture - Preliminary Gram Negative Arash Resulted Laboratory Tests 06/25/20 08:55: White Blood Count 11.2H, Red Blood Count 4.16L, Hemoglobin 12.2L, Hematocrit 38.9L, Mean Corpuscular Volume 93, Mean Corpuscular Hemoglobin 29.4, Mean Corpuscular Hemoglobin Concent 31.5L, Red Cell Distribution Width 13.3, Platelet Count 485H, Mean Platelet Volume 6.7, Neutrophils (%) (Auto) 70.2, Lymphocytes (%) (Auto) 19.5L, Monocytes (%) (Auto) 6.3, Eosinophils (%) (Auto) 2.2, Basophils (%) (Auto) 1.9, Sodium Level 142, Potassium Level 3.8, Chloride Level 108H, Carbon Dioxide Level 28, Anion Gap 6, Blood Urea Nitrogen 24H, Creatinine 1.1, Estimat Glomerular Filtration Rate > 60, Glucose Level 138H, Calcium Level 8.7, Magnesium Level 2.5H Current Medications Medications (Trade) Dose Ordered Sig/Daniele Route PRN Reason Start Time Stop Time Status Last Admin Dose Admin Acetaminophen (Tylenol) 650 mg Q4H PRN NG Mild Pain (Pain Scale 1-3) 06/20/20 13:30 07/13/20 21:44 06/24/20 04:11 Acetaminophen (Tylenol) 650 mg Q6H PRN RECTAL Temp >100.5 06/16/20 15:43 07/16/20 15:42 06/21/20 09:16 Albuterol/ Ipratropium (Albuterol/ Ipratropium) 3 ml Q4H PRN HHN Shortness of Breath 06/23/20 17:13 06/28/20 17:12 Albuterol/ Ipratropium (Albuterol/ Ipratropium) 3 ml TIDRT HHN 06/25/20 07:00 06/30/20 06:59 Haloperidol Lactate (Haldol) 5 mg Q6H PRN IM Agitation 06/14/20 14:45 07/29/20 14:44 06/24/20 08:27 Heparin Sodium (Porcine) (Heparin 5000 units/ml) 5,000 units EVERY 12 HOURS SUBQ 06/14/20 09:00 07/29/20 08:59 06/25/20 09:29 Metoprolol Tartrate (Lopressor) 25 mg Q12HR GT 06/25/20 09:00 09/23/20 08:59 06/25/20 09:28 Olanzapine (ZyPREXA) 5 mg BEDTIME NG 06/20/20 21:00 07/29/20 20:59 06/24/20 21:41 Piperacillin Sod/ Tazobactam Sod 3.375 gm/Sodium Chloride 110 ml @ 27.5 mls/hr Q8H IVPB 06/21/20 18:00 06/28/20 17:59 06/25/20 10:00 Tramadol HCl (Ultram) 50 mg Q6H PRN NG Moderate Pain (Pain Scale 4-6) 06/23/20 17:13 06/30/20 17:12 Assessment/Plan Assessment/Plan IMPRESSION: 1. Pulmonary congestion; suspect difficulty with handling upper airway secretions; no pneumonia on CXR 2. Altered mental status. 3. Dementia. 4. Jaw fracture. 5. Status post fall. 6. Depression. DISCUSSION: Continue broad-spectrum antibiotics. S/p PEG I will follow carefully. Continue low flow O2; now on ventimask Hayden Cartwright Omar Syed MD Jun 25, 2020 11:38
[2020-06-25] MEDS: Haloperidol 5mg/ml Inj IM PRN ×2 (11:56→20:34)
[2020-06-25 12:00] VITALS: BP 142/83
--- NOTE | 2020-06-25 12:05 | General Progress Note ---
Subjective Allergies: Coded Allergies: ASPIRIN (Verified Allergy, Unknown, 06/13/20) Subjective more awake non verabal s/p egd tolerating tufe feeding episode of v tach Objective Last 24 Hour Vital Signs Date Time Temp Pulse Resp B/P (MAP) Pulse Ox O2 Delivery O2 Flow Rate FiO2 06/25/20 09:28 78 138/74 06/25/20 09:00 Venturi Mask 6.0 06/25/20 08:00 84 06/25/20 08:00 98.2 78 20 138/74 (95) 96 06/25/20 07:59 96 22 99 Venturi Mask 6.0 35 95 18 98 06/25/20 07:59 98 Venturi Mask 6.0 35 06/25/20 04:00 98.1 80 20 126/71 (89) 100 06/25/20 04:00 70 06/25/20 02:41 78 122/61 06/25/20 01:19 99 06/25/20 00:00 99.2 94 20 134/70 (91) 98 06/25/20 00:00 78 06/24/20 21:00 Venturi Mask 8.0 06/24/20 20:00 100 06/24/20 20:00 98.9 90 20 118/67 (84) 96 06/24/20 19:20 98 22 99 Venturi Mask 6.0 35 93 18 98 06/24/20 19:20 98 Venturi Mask 6.0 35 06/24/20 16:00 95 06/24/20 15:30 98.0 100 20 101/70 100 Venturi Mask 8 06/24/20 15:17 102 19 106/69 100 Venturi Mask 8 06/24/20 15:07 105 18 118/71 100 Venturi Mask 8 06/24/20 15:02 107 17 104/68 100 Venturi Mask 8 06/24/20 14:57 98.0 108 16 114/73 100 Venturi Mask 8 06/24/20 14:57 110 18 100 06/24/20 14:55 109 16 100 06/24/20 13:27 114 28 90 Non-Rebreather 6.0 35 102 20 93 Intake and Output 06/24/20 06/25/20 19:00 07:00 Intake Total 300 ml Output Total 400 ml 400 ml Balance -100 ml -400 ml IV Total 300 ml Output Urine Total 400 ml 400 ml # Voids 1 Laboratory Tests 06/25/20 08:55: White Blood Count 11.2H, Red Blood Count 4.16L, Hemoglobin 12.2L, Hematocrit 38.9L, Mean Corpuscular Volume 93, Mean Corpuscular Hemoglobin 29.4, Mean Corpuscular Hemoglobin Concent 31.5L, Red Cell Distribution Width 13.3, Platelet Count 485H, Mean Platelet Volume 6.7, Neutrophils (%) (Auto) 70.2, Lymphocytes (%) (Auto) 19.5L, Monocytes (%) (Auto) 6.3, Eosinophils (%) (Auto) 2.2, Basophils (%) (Auto) 1.9, Sodium Level 142, Potassium Level 3.8, Chloride Level 108H, Carbon Dioxide Level 28, Anion Gap 6, Blood Urea Nitrogen 24H, Creatinine 1.1, Estimat Glomerular Filtration Rate > 60, Glucose Level 138H, Calcium Level 8.7, Magnesium Level 2.5H Height (Feet): 6 Height (Inches): 6.00 Weight (Pounds): 128 General Appearance: no apparent distress Neck: non-tender, supple Cardiovascular: regular rhythm Respiratory/Chest: crackles/rales Abdomen: non tender, soft Skin: warm/dry Assessment/Plan Status: fever Assessment/Plan: v tach add metaprolol , cardio dr barclay is on the case aspiration pneumonia dc rocephine, add zosyn cont broncodilaor tx, dw pulmonary consult 1 uti 2 fever 3 aloc 4 dementia 5 fall 6 failure of thrive 7 ac cardio-pulmonary arrest 8 old mandible fracture 9 dysphasia 10 failure of thrive need peg katelin gonzalez s/p peg feeding per gi aspiration precaution cont iv abx dw charge nurse Jakob Munoz MD Jun 25, 2020 12:05
[2020-06-25] MEDS: Albuterol/Ipratropium 3ml neb HHN SCH ×3 (13:50→20:00)
[2020-06-25 16:00] VITALS: BP 137/71
--- NOTE | 2020-06-25 16:11 | Infectious Diseases Prog Note ---
Assessment/Plan Assessment/Plan A; 1. Pneumonia 2. Dementia. 3. Depression. 4. History of mandibular fracture status post surgery. 5. Hypoxemia 6. Tachycardia resolved PLAN: 1. Continue Zosyn X 2 days 2. We will follow up cultures and adjust antibiotics accordingly Subjective ROS Limited/Unobtainable: Yes Constitutional: Denies: fever Neurologic: Reports: confusion, other - on restraint Allergies: Coded Allergies: ASPIRIN (Verified Allergy, Unknown, 06/13/20) Objective Last 24 Hour Vital Signs Date Time Temp Pulse Resp B/P (MAP) Pulse Ox O2 Delivery O2 Flow Rate FiO2 06/25/20 16:00 96.7 84 19 137/71 (93) 96 06/25/20 13:51 85 17 100 Venturi Mask 6.0 35 84 17 98 06/25/20 12:00 84 06/25/20 12:00 98.4 75 20 142/83 (102) 100 06/25/20 09:28 78 138/74 06/25/20 09:00 Venturi Mask 6.0 06/25/20 08:00 84 06/25/20 08:00 98.2 78 20 138/74 (95) 96 06/25/20 07:59 96 22 99 Venturi Mask 6.0 35 95 18 98 06/25/20 07:59 98 Venturi Mask 6.0 35 06/25/20 04:00 98.1 80 20 126/71 (89) 100 06/25/20 04:00 70 06/25/20 02:41 78 122/61 06/25/20 01:19 99 06/25/20 00:00 99.2 94 20 134/70 (91) 98 06/25/20 00:00 78 06/24/20 21:00 Venturi Mask 8.0 06/24/20 20:00 100 06/24/20 20:00 98.9 90 20 118/67 (84) 96 06/24/20 19:20 98 22 99 Venturi Mask 6.0 35 93 18 98 06/24/20 19:20 98 Venturi Mask 6.0 35 Height (Feet): 6 Height (Inches): 6.00 Weight (Pounds): 128 General Appearance: cachetic HEENT: mucous membranes moist Respiratory/Chest: lungs clear, other - Oxygen by mask Cardiovascular: normal rate Abdomen: soft, non tender, other - NG tube Genitourinary: other - Condom catheter Extremities: no edema Neurologic/Psychiatric: other - sleeping Microbiology Date/Time Source Procedure Growth Status 06/23/20 17:45 Sputum Gram Stain - Final Resulted 06/23/20 17:45 Sputum Culture - Preliminary Gram Negative Arash Resulted Laboratory Tests Test 06/25/20 08:55 White Blood Count 11.2 K/UL (4.8-10.8) H Red Blood Count 4.16 M/UL (4.70-6.10) L Hemoglobin 12.2 G/DL (14.2-18.0) L Hematocrit 38.9 % (42.0-52.0) L Mean Corpuscular Volume 93 FL (80-99) Mean Corpuscular Hemoglobin 29.4 PG (27.0-31.0) Mean Corpuscular Hemoglobin Concent 31.5 G/DL (32.0-36.0) L Red Cell Distribution Width 13.3 % (11.6-14.8) Platelet Count 485 K/UL (150-450) H Mean Platelet Volume 6.7 FL (6.5-10.1) Neutrophils (%) (Auto) 70.2 % (45.0-75.0) Lymphocytes (%) (Auto) 19.5 % (20.0-45.0) L Monocytes (%) (Auto) 6.3 % (1.0-10.0) Eosinophils (%) (Auto) 2.2 % (0.0-3.0) Basophils (%) (Auto) 1.9 % (0.0-2.0) Sodium Level 142 MMOL/L (136-145) Potassium Level 3.8 MMOL/L (3.5-5.1) Chloride Level 108 MMOL/L (98-107) H Carbon Dioxide Level 28 MMOL/L (21-32) Anion Gap 6 mmol/L (5-15) Blood Urea Nitrogen 24 mg/dL (7-18) H Creatinine 1.1 MG/DL (0.55-1.30) Estimat Glomerular Filtration Rate > 60 mL/min (>60) Glucose Level 138 MG/DL (74-106) H Calcium Level 8.7 MG/DL (8.5-10.1) Magnesium Level 2.5 MG/DL (1.8-2.4) H Current Medications Medications (Trade) Dose Ordered Sig/Daniele Route PRN Reason Start Time Stop Time Status Last Admin Dose Admin Acetaminophen (Tylenol) 650 mg Q4H PRN NG Mild Pain (Pain Scale 1-3) 06/20/20 13:30 07/13/20 21:44 06/24/20 04:11 Acetaminophen (Tylenol) 650 mg Q6H PRN RECTAL Temp >100.5 06/16/20 15:43 07/16/20 15:42 06/21/20 09:16 Albuterol/ Ipratropium (Albuterol/ Ipratropium) 3 ml Q4H PRN HHN Shortness of Breath 06/23/20 17:13 06/28/20 17:12 Albuterol/ Ipratropium (Albuterol/ Ipratropium) 3 ml TIDRT HHN 06/25/20 07:00 06/30/20 06:59 06/25/20 13:51 Haloperidol Lactate (Haldol) 5 mg Q6H PRN IM Agitation 06/14/20 14:45 07/29/20 14:44 06/25/20 11:56 Heparin Sodium (Porcine) (Heparin 5000 units/ml) 5,000 units EVERY 12 HOURS SUBQ 06/14/20 09:00 07/29/20 08:59 06/25/20 09:29 Metoprolol Tartrate (Lopressor) 25 mg Q12HR GT 06/25/20 09:00 09/23/20 08:59 06/25/20 09:28 Olanzapine (ZyPREXA) 5 mg BEDTIME NG 06/20/20 21:00 07/29/20 20:59 06/24/20 21:41 Piperacillin Sod/ Tazobactam Sod 3.375 gm/Sodium Chloride 110 ml @ 27.5 mls/hr Q8H IVPB 06/21/20 18:00 06/28/20 17:59 06/25/20 10:00 Tramadol HCl (Ultram) 50 mg Q6H PRN NG Moderate Pain (Pain Scale 4-6) 06/23/20 17:13 06/30/20 17:12 Gabriel Foley MD Jun 25, 2020 16:11
[2020-06-25 20:00] VITALS: BP 129/77
--- NOTE | 2020-06-25 20:23 | Cardiology Progress Note ---
Assessment/Plan Assessment/Plan 1. Sinus tachycardia, likely due to sepsis, multilobar pneumonia (CXR shows worsening of airspace disease), 2D echo shows normal LVEF. 2. Syncope, most likely due to hypovolemia versus neurocardiogenic, normal LV fxn. 3. Bilateral pneumonia, continue IV antibiotics. 4. Status post fall with jaw fracture. 5. Small pericardial effusion. 6. Mild pulmonary HTN. 7. Acute hypoxemic respiratory failure, on venturi mask. Subjective Subjective Sinus tachycardia at rate of 111. On venturi mask. Agitated. Objective Last 24 Hour Vital Signs Date Time Temp Pulse Resp B/P (MAP) Pulse Ox O2 Delivery O2 Flow Rate FiO2 06/25/20 20:12 110 20 99 Venturi Mask 6.0 35 06/25/20 20:00 112 20 97 Venturi Mask 6.0 35 06/25/20 20:00 97 Venturi Mask 6.0 35 06/25/20 16:00 96.7 84 19 137/71 (93) 96 06/25/20 16:00 84 06/25/20 16:00 91 06/25/20 13:51 85 17 100 Venturi Mask 6.0 35 84 17 98 06/25/20 12:00 84 06/25/20 12:00 98.4 75 20 142/83 (102) 100 06/25/20 09:28 78 138/74 06/25/20 09:00 Venturi Mask 6.0 06/25/20 08:00 84 06/25/20 08:00 98.2 78 20 138/74 (95) 96 06/25/20 07:59 96 22 99 Venturi Mask 6.0 35 95 18 98 06/25/20 07:59 98 Venturi Mask 6.0 35 06/25/20 04:00 98.1 80 20 126/71 (89) 100 06/25/20 04:00 70 06/25/20 02:41 78 122/61 06/25/20 01:19 99 06/25/20 00:00 99.2 94 20 134/70 (91) 98 06/25/20 00:00 78 06/24/20 21:00 Venturi Mask 8.0 Intake and Output 06/24/20 06/25/20 19:00 07:00 Intake Total 300 ml Output Total 400 ml 400 ml Balance -100 ml -400 ml IV Total 300 ml Output Urine Total 400 ml 400 ml # Voids 1 2D Echo: EF 60%, Small Pericardial Eff, RVSP 41 mmHg, Grade I LVDD, Mild AR Laboratory Tests Test 06/25/20 08:55 White Blood Count 11.2 K/UL (4.8-10.8) H Red Blood Count 4.16 M/UL (4.70-6.10) L Hemoglobin 12.2 G/DL (14.2-18.0) L Hematocrit 38.9 % (42.0-52.0) L Mean Corpuscular Volume 93 FL (80-99) Mean Corpuscular Hemoglobin 29.4 PG (27.0-31.0) Mean Corpuscular Hemoglobin Concent 31.5 G/DL (32.0-36.0) L Red Cell Distribution Width 13.3 % (11.6-14.8) Platelet Count 485 K/UL (150-450) H Mean Platelet Volume 6.7 FL (6.5-10.1) Neutrophils (%) (Auto) 70.2 % (45.0-75.0) Lymphocytes (%) (Auto) 19.5 % (20.0-45.0) L Monocytes (%) (Auto) 6.3 % (1.0-10.0) Eosinophils (%) (Auto) 2.2 % (0.0-3.0) Basophils (%) (Auto) 1.9 % (0.0-2.0) Sodium Level 142 MMOL/L (136-145) Potassium Level 3.8 MMOL/L (3.5-5.1) Chloride Level 108 MMOL/L (98-107) H Carbon Dioxide Level 28 MMOL/L (21-32) Anion Gap 6 mmol/L (5-15) Blood Urea Nitrogen 24 mg/dL (7-18) H Creatinine 1.1 MG/DL (0.55-1.30) Estimat Glomerular Filtration Rate > 60 mL/min (>60) Glucose Level 138 MG/DL (74-106) H Calcium Level 8.7 MG/DL (8.5-10.1) Magnesium Level 2.5 MG/DL (1.8-2.4) H Microbiology Date/Time Source Procedure Growth Status 06/23/20 17:45 Sputum Gram Stain - Final Resulted 06/23/20 17:45 Sputum Culture - Preliminary Gram Negative Arash Resulted Objective HEENT: Atraumatic and normocephalic. Anicteric. Pupils are equal, round, and reactive to light and accommodation. On venturi mask. NECK: JVP less than 5 cm. No carotid bruit. CARDIOVASCULAR: Normal S1, S2. Tachycardic. Regular rate and rhythm. No murmurs, gallops, or rubs. LUNGS: Diminished bilaterally. ABDOMEN: Soft, nontender, nondistended. No hepatosplenomegaly. Positive bowel sounds. EXTREMITIES: No evidence of edema, clubbing, or cyanosis. Jimbo Kebede MD Jun 25, 2020 20:23
--- NOTE | 2020-06-25 23:15 | Psychiatric Progress Note ---
Psychiatry Progress Note Psychiatry Progress Note Medications Current Medications Medications (Trade) Dose Ordered Sig/Daniele Route PRN Reason Start Time Stop Time Status Last Admin Dose Admin Acetaminophen (Tylenol) 650 mg Q4H PRN NG Mild Pain (Pain Scale 1-3) 06/20/20 13:30 07/13/20 21:44 06/24/20 04:11 Acetaminophen (Tylenol) 650 mg Q6H PRN RECTAL Temp >100.5 06/16/20 15:43 07/16/20 15:42 06/21/20 09:16 Albuterol/ Ipratropium (Albuterol/ Ipratropium) 3 ml Q4H PRN HHN Shortness of Breath 06/23/20 17:13 06/28/20 17:12 Albuterol/ Ipratropium (Albuterol/ Ipratropium) 3 ml TIDRT HHN 06/25/20 07:00 06/30/20 06:59 06/25/20 20:00 Haloperidol Lactate (Haldol) 5 mg Q6H PRN IM Agitation 06/14/20 14:45 07/29/20 14:44 06/25/20 20:34 Heparin Sodium (Porcine) (Heparin 5000 units/ml) 5,000 units EVERY 12 HOURS SUBQ 06/14/20 09:00 07/29/20 08:59 06/25/20 20:36 Metoprolol Tartrate (Lopressor) 25 mg Q12HR GT 06/25/20 09:00 09/23/20 08:59 06/25/20 20:42 Olanzapine (ZyPREXA) 5 mg BEDTIME NG 06/20/20 21:00 07/29/20 20:59 06/25/20 20:35 Piperacillin Sod/ Tazobactam Sod 3.375 gm/Sodium Chloride 110 ml @ 27.5 mls/hr Q8H IVPB 06/21/20 18:00 06/28/20 17:59 06/25/20 17:36 Tramadol HCl (Ultram) 50 mg Q6H PRN NG Moderate Pain (Pain Scale 4-6) 06/23/20 17:13 06/30/20 17:12 Neurological/Psychiatric: Reports: anxiety, depressed, emotional problems, w eakness Allergies: Coded Allergies: ASPIRIN (Verified Allergy, Unknown, 06/13/20) Objective Data Height (Feet): 6 Height (Inches): 6.00 Weight (Pounds): 128 General Appearance: no apparent distress Additional Comments: waxing consciousness. Disoriented. Mood is anxious. Affect is flat. Thought process, there is a paucity of thought content. Thought content, no suicidal or homicidal ideation. Cognition is impaired. Insight and judgment is impaired. Assessment/Plan [place] I: ASSESSMENT: [place] I Dementia. Acute encephalopathy. [place] II Deferred. [place] III Multiple falls. [place] IV Low. [place] V 20. PLAN: 1. Zyprexa 5 mg. 2. Haldol p.r.n. 3. Discontinue Ativan IV and continue the p.o. 4. Discussed with the nurse. Status: fever Status Narrative ASSESSMENT: [place] I Dementia. Acute encephalopathy. [place] II Deferred. [place] III Multiple falls. [place] IV Low. [place] V 20. PLAN: 1. Zyprexa 5 mg. 2. Haldol p.r.n. 3. Discontinue Ativan IV and continue the p.o. 4. Discussed with the nurse. Assessment/Plan: ASSESSMENT: [place] I Dementia. Acute encephalopathy. [place] II Deferred. [place] III Multiple falls. [place] IV Low. [place] V 20. PLAN: 1. Zyprexa 5 mg. 2. Haldol p.r.n. 3. Discontinue Ativan IV and continue the p.o. 4. Discussed with the nurse. Joni Del Rosario MD Jun 25, 2020 23:15
[2020-06-26] VITALS: BP 119/73
[2020-06-26] MEDS: Piperacillin/Tazobactam 3.375 GM in NS 110 ML IVPB SCH ×3 (02:06→17:51)
[2020-06-26 04:00] VITALS: BP 133/77
--- NOTE | 2020-06-26 07:19 | General Progress Note ---
Subjective ROS Limited/Unobtainable: No Allergies: Coded Allergies: ASPIRIN (Verified Allergy, Unknown, 06/13/20) Objective Last 24 Hour Vital Signs Date Time Temp Pulse Resp B/P (MAP) Pulse Ox O2 Delivery O2 Flow Rate FiO2 06/26/20 04:00 98.6 82 21 133/77 (95) 100 06/26/20 04:00 87 06/26/20 00:00 99.7 70 20 119/73 (88) 100 06/26/20 00:00 83 06/25/20 21:00 Venturi Mask 6.0 06/25/20 20:42 91 129/77 06/25/20 20:12 110 20 99 Venturi Mask 6.0 35 06/25/20 20:00 112 20 97 Venturi Mask 6.0 35 06/25/20 20:00 97 Venturi Mask 6.0 35 06/25/20 20:00 97.7 91 18 129/77 (94) 100 06/25/20 20:00 107 06/25/20 16:00 96.7 84 19 137/71 (93) 96 06/25/20 16:00 84 06/25/20 16:00 91 06/25/20 13:51 85 17 100 Venturi Mask 6.0 35 84 17 98 06/25/20 12:00 84 06/25/20 12:00 98.4 75 20 142/83 (102) 100 06/25/20 09:28 78 138/74 06/25/20 09:00 Venturi Mask 6.0 06/25/20 08:00 84 06/25/20 08:00 98.2 78 20 138/74 (95) 96 06/25/20 07:59 96 22 99 Venturi Mask 6.0 35 95 18 98 06/25/20 07:59 98 Venturi Mask 6.0 35 Intake and Output 06/25/20 06/26/20 19:00 07:00 Intake Total 100 ml Output Total 600 ml Balance -500 ml Free Water 100 ml Output Urine Total 600 ml Laboratory Tests 06/25/20 08:55: White Blood Count 11.2H, Red Blood Count 4.16L, Hemoglobin 12.2L, Hematocrit 38.9L, Mean Corpuscular Volume 93, Mean Corpuscular Hemoglobin 29.4, Mean Corpuscular Hemoglobin Concent 31.5L, Red Cell Distribution Width 13.3, Platelet Count 485H, Mean Platelet Volume 6.7, Neutrophils (%) (Auto) 70.2, Lymphocytes (%) (Auto) 19.5L, Monocytes (%) (Auto) 6.3, Eosinophils (%) (Auto) 2.2, Basop hils (%) (Auto) 1.9, Sodium Level 142, Potassium Level 3.8, Chloride Level 108H, Carbon Dioxide Level 28, Anion Gap 6, Blood Urea Nitrogen 24H, Creatinine 1.1, Estimat Glomerular Filtration Rate > 60, Glucose Level 138H, Calcium Level 8.7, Magnesium Level 2.5H Height (Feet): 6 Height (Inches): 6.00 Weight (Pounds): 128 General Appearance: no apparent distress EENT: normal ENT inspection Neck: normal alignment Cardiovascular: tachycardia Respiratory/Chest: decreased breath sounds Abdomen: hypoactive bowel sounds Extremities: non-tender Assessment/Plan Status: fever Assessment/Plan: jaw fracture dysphagia leukocytosis VT s/p PEG placement GTF monitor for residuals fu cardiology Ismael Kwon MD Jun 26, 2020 07:18
[2020-06-26 08:00] VITALS: BP 133/81
[2020-06-26] MEDS: Heparin 5000 units/ml inj SUBQ SCH ×2 (08:40→21:24)
[2020-06-26] MEDS: Haloperidol 5mg/ml Inj IM PRN (08:43)
[2020-06-26] MEDS: Albuterol/Ipratropium 3ml neb HHN SCH ×3 (09:23→19:57)
--- NOTE | 2020-06-26 10:42 | Pulmonology Progress Note ---
Subjective ROS Limited/Unobtainable: No Interval Events: None new; s/p PEG Constitutional: Denies: fever HEENT: Repors: no symptoms Respiratory: Reports: no symptoms Cardiovascular: Reports: no symptoms Gastrointestinal/Abdominal: Denies: diarrhea Genitourinary: Reports: no symptoms Allergies: Coded Allergies: ASPIRIN (Verified Allergy, Unknown, 06/13/20) Objective Last 24 Hour Vital Signs Date Time Temp Pulse Resp B/P (MAP) Pulse Ox O2 Delivery O2 Flow Rate FiO2 06/26/20 09:00 Venturi Mask 6.0 06/26/20 08:37 98 133/81 06/26/20 08:00 96.7 98 18 133/81 (98) 100 06/26/20 08:00 94 06/26/20 04:00 98.6 82 21 133/77 (95) 100 06/26/20 04:00 87 06/26/20 00:00 99.7 70 20 119/73 (88) 100 06/26/20 00:00 83 06/25/20 21:00 Venturi Mask 6.0 06/25/20 20:42 91 129/77 06/25/20 20:12 110 20 99 Venturi Mask 6.0 35 06/25/20 20:00 112 20 97 Venturi Mask 6.0 35 06/25/20 20:00 97 Venturi Mask 6.0 35 06/25/20 20:00 97.7 91 18 129/77 (94) 100 06/25/20 20:00 107 06/25/20 16:00 96.7 84 19 137/71 (93) 96 06/25/20 16:00 84 06/25/20 16:00 91 06/25/20 13:51 85 17 100 Venturi Mask 6.0 35 84 17 98 06/25/20 12:00 84 06/25/20 12:00 98.4 75 20 142/83 (102) 100 Intake and Output 06/25/20 06/26/20 19:00 07:00 Intake Total 100 ml Output Total 600 ml Balance -500 ml Free Water 100 ml Output Urine Total 600 ml General Appearance: no acute distress HEENT: normocephalic Respiratory: chest wall non-tender, lungs clear Cardiovascular: normal peripheral pulses, regular rhythm Abdomen: normal bowel sounds Microbiology Date/Time Source Procedure Growth Status 06/23/20 17:45 Sputum Gram Stain - Final Resulted 06/23/20 17:45 Sputum Culture - Preliminary Proteus Mirabilis Resulted Current Medications Medications (Trade) Dose Ordered Sig/Daniele Route PRN Reason Start Time Stop Time Status Last Admin Dose Admin Acetaminophen (Tylenol) 650 mg Q4H PRN NG Mild Pain (Pain Scale 1-3) 06/20/20 13:30 07/13/20 21:44 06/24/20 04:11 Acetaminophen (Tylenol) 650 mg Q6H PRN RECTAL Temp >100.5 06/16/20 15:43 07/16/20 15:42 06/21/20 09:16 Albuterol/ Ipratropium (Albuterol/ Ipratropium) 3 ml Q4H PRN HHN Shortness of Breath 06/23/20 17:13 06/28/20 17:12 Albuterol/ Ipratropium (Albuterol/ Ipratropium) 3 ml TIDRT HHN 06/25/20 07:00 06/30/20 06:59 06/26/20 09:23 Haloperidol Lactate (Haldol) 5 mg Q6H PRN IM Agitation 06/14/20 14:45 07/29/20 14:44 06/26/20 08:43 Heparin Sodium (Porcine) (Heparin 5000 units/ml) 5,000 units EVERY 12 HOURS SUBQ 06/14/20 09:00 07/29/20 08:59 06/26/20 08:40 Metoprolol Tartrate (Lopressor) 25 mg Q12HR GT 06/25/20 09:00 09/23/20 08:59 06/26/20 08:37 Olanzapine (ZyPREXA) 5 mg BEDTIME NG 06/20/20 21:00 07/29/20 20:59 06/25/20 20:35 Piperacillin Sod/ Tazobactam Sod 3.375 gm/Sodium Chloride 110 ml @ 27.5 mls/hr Q8H IVPB 06/21/20 18:00 06/28/20 17:59 06/26/20 02:06 Tramadol HCl (Ultram) 50 mg Q6H PRN NG Moderate Pain (Pain Scale 4-6) 06/23/20 17:13 06/30/20 17:12 Assessment/Plan Assessment/Plan IMPRESSION: 1. Pulmonary congestion; suspect difficulty with handling upper airway secretio ns; no pneumonia on CXR 2. Altered mental status. 3. Dementia. 4. Jaw fracture. 5. Status post fall. 6. Depression. DISCUSSION: Continue broad-spectrum antibiotics. S/p PEG I will follow carefully. Continue low flow O2; now on ventimask 6 L Hayden Cartwright Omar Syed MD Jun 26, 2020 10:42
--- NOTE | 2020-06-26 11:36 | Infectious Diseases Prog Note ---
Assessment/Plan Assessment/Plan antibiotics : zosyn 06.21.20 - A 1. proteus pneumonia 2. Dementia. 3. Depression. 4. History of mandibular fracture status post surgery. 5. leucocytosis improving P 1. continue zosyn 1 more day 2. will follow up cultures Subjective ROS Limited/Unobtainable: Yes Allergies: Coded Allergies: ASPIRIN (Verified Allergy, Unknown, 06/13/20) Objective Last 24 Hour Vital Signs Date Time Temp Pulse Resp B/P (MAP) Pulse Ox O2 Delivery O2 Flow Rate FiO2 06/26/20 09:00 Venturi Mask 6.0 06/26/20 08:37 98 133/81 06/26/20 08:00 96.7 98 18 133/81 (98) 100 06/26/20 08:00 94 06/26/20 04:00 98.6 82 21 133/77 (95) 100 06/26/20 04:00 87 06/26/20 00:00 99.7 70 20 119/73 (88) 100 06/26/20 00:00 83 06/25/20 21:00 Venturi Mask 6.0 06/25/20 20:42 91 129/77 06/25/20 20:12 110 20 99 Venturi Mask 6.0 35 06/25/20 20:00 112 20 97 Venturi Mask 6.0 35 06/25/20 20:00 97 Venturi Mask 6.0 35 06/25/20 20:00 97.7 91 18 129/77 (94) 100 06/25/20 20:00 107 06/25/20 16:00 96.7 84 19 137/71 (93) 96 06/25/20 16:00 84 06/25/20 16:00 91 06/25/20 13:51 85 17 100 Venturi Mask 6.0 35 84 17 98 06/25/20 12:00 84 06/25/20 12:00 98.4 75 20 142/83 (102) 100 Height (Feet): 6 Height (Inches): 6.00 Weight (Pounds): 128 Respiratory/Chest: lungs clear Cardiovascular: normal rate, regular rhythm, no gallop/murmur Abdomen: soft, non tender, other - GT Extremities: no edema Microbiology Date/Time Source Procedure Growth Status 06/23/20 17:45 Sputum Gram Stain - Final Resulted 06/23/20 17:45 Sputum Culture - Preliminary Proteus Mirabilis Resulted Current Medications Medications (Trade) Dose Ordered Sig/Daniele Route PRN Reason Start Time Stop Time Status Last Admin Dose Admin Acetaminophen (Tylenol) 650 mg Q4H PRN NG Mild Pain (Pain Scale 1-3) 06/20/20 13:30 07/13/20 21:44 06/24/20 04:11 Acetaminophen (Tylenol) 650 mg Q6H PRN RECTAL Temp >100.5 06/16/20 15:43 07/16/20 15:42 06/21/20 09:16 Albuterol/ Ipratropium (Albuterol/ Ipratropium) 3 ml Q4H PRN HHN Shortness of Breath 06/23/20 17:13 06/28/20 17:12 Albuterol/ Ipratropium (Albuterol/ Ipratropium) 3 ml TIDRT HHN 06/25/20 07:00 06/30/20 06:59 06/26/20 09:23 Haloperidol Lactate (Haldol) 5 mg Q6H PRN IM Agitation 06/14/20 14:45 07/29/20 14:44 06/26/20 08:43 Heparin Sodium (Porcine) (Heparin 5000 units/ml) 5,000 units EVERY 12 HOURS SUBQ 06/14/20 09:00 07/29/20 08:59 06/26/20 08:40 Metoprolol Tartrate (Lopressor) 25 mg Q12HR GT 06/25/20 09:00 09/23/20 08:59 06/26/20 08:37 Olanzapine (ZyPREXA) 5 mg BEDTIME NG 06/20/20 21:00 07/29/20 20:59 06/25/20 20:35 Piperacillin Sod/ Tazobactam Sod 3.375 gm/Sodium Chloride 110 ml @ 27.5 mls/hr Q8H IVPB 06/21/20 18:00 06/28/20 17:59 06/26/20 10:00 Tramadol HCl (Ultram) 50 mg Q6H PRN NG Moderate Pain (Pain Scale 4-6) 06/23/20 17:13 06/30/20 17:12 Viviane Botello MD Jun 26, 2020 11:36
[2020-06-26 12:00] VITALS: BP 131/71
[2020-06-26 16:00] VITALS: BP 130/81
[2020-06-26 20:00] VITALS: BP 133/79
--- NOTE | 2020-06-26 23:00 | Cardiology Progress Note ---
Assessment/Plan Assessment/Plan 1. Sinus tachycardia, likely due to sepsis, multilobar pneumonia (CXR shows worsening of airspace disease), 2D echo shows normal LVEF. 2. Syncope, most likely due to hypovolemia versus neurocardiogenic, normal LV fxn. 3. Bilateral pneumonia, continue IV antibiotics. 4. Status post fall with jaw fracture. 5. Small pericardial effusion. 6. Mild pulmonary HTN. 7. Acute hypoxemic respiratory failure. Subjective Subjective Sinus tachycardia at rate of 100. On NC 2 lit/min Objective Last 24 Hour Vital Signs Date Time Temp Pulse Resp B/P (MAP) Pulse Ox O2 Delivery O2 Flow Rate FiO2 06/26/20 21:23 100 133/79 06/26/20 20:00 98.1 100 21 133/79 (97) 99 06/26/20 20:00 100 06/26/20 19:59 100 Nasal Cannula 2.0 28 06/26/20 19:58 81 20 100 Nasal Cannula 2.0 28 86 20 100 06/26/20 16:00 92 06/26/20 16:00 98.6 75 18 130/81 (97) 100 06/26/20 13:40 86 20 99 Venturi Mask 6.0 35 81 20 99 06/26/20 12:00 96.7 71 20 131/71 (91) 100 06/26/20 12:00 80 06/26/20 09:33 65 20 99 Venturi Mask 6.0 35 71 20 99 06/26/20 09:00 Venturi Mask 2.0 06/26/20 08:37 98 133/81 06/26/20 08:00 96.7 98 18 133/81 (98) 100 06/26/20 08:00 94 06/26/20 07:08 99 Venturi Mask 6.0 35 06/26/20 04:00 98.6 82 21 133/77 (95) 100 06/26/20 04:00 87 06/26/20 00:00 99.7 70 20 119/73 (88) 100 06/26/20 00:00 83 Intake and Output 06/25/20 06/26/20 19:00 07:00 Intake Total 100 ml Output Total 600 ml Balance -500 ml Free Water 100 ml Output Urine Total 600 ml 2D Echo: EF 60%, Small Pericardial Eff, RVSP 41 mmHg, Grade I LVDD, Mild AR Objective HEENT: Atraumatic and normocephalic. Anicteric. Pupils are equal, round, and reactive to light and accommodation. On venturi mask. NECK: JVP less than 5 cm. No carotid bruit. CARDIOVASCULAR: Normal S1, S2. Tachycardic. Regular rate and rhythm. No murmurs, gallops, or rubs. LUNGS: Diminished bilaterally. ABDOMEN: Soft, nontender, nondistended. No hepatosplenomegaly. Positive bowel sounds. EXTREMITIES: No evidence of edema, clubbing, or cyanosis. Jimbo Kebede MD Jun 26, 2020 23:00
[2020-06-27] VITALS: BP 150/86
[2020-06-27] MEDS: Piperacillin/Tazobactam 3.375 GM in NS 110 ML IVPB SCH ×2 (01:24→10:43)
[2020-06-27] MEDS: Haloperidol 5mg/ml Inj IM PRN (01:29)
[2020-06-27 04:00] VITALS: BP 147/60
[2020-06-27] MEDS: Albuterol/Ipratropium 3ml neb HHN SCH ×2 (06:59→13:58)
[2020-06-27 08:00] VITALS: BP 155/96
[2020-06-27] MEDS: Heparin 5000 units/ml inj SUBQ SCH (09:01)
--- NOTE | 2020-06-27 09:46 | General Progress Note ---
Subjective ROS Limited/Unobtainable: No Allergies: Coded Allergies: ASPIRIN (Verified Allergy, Unknown, 06/13/20) Objective Last 24 Hour Vital Signs Date Time Temp Pulse Resp B/P (MAP) Pulse Ox O2 Delivery O2 Flow Rate FiO2 06/27/20 09:01 106 155/96 06/27/20 09:00 Nasal Cannula 3.0 06/27/20 08:00 96.8 106 20 155/96 (115) 99 06/27/20 08:00 109 06/27/20 07:00 98 Nasal Cannula 2.0 28 06/27/20 07:00 88 22 100 Nasal Cannula 2.0 28 98 22 99 06/27/20 04:00 98.9 76 18 147/60 (89) 97 06/27/20 04:00 76 06/27/20 00:00 97.5 82 20 150/86 (107) 100 06/27/20 00:00 76 06/26/20 21:23 100 133/79 06/26/20 21:00 Nasal Cannula 4.0 06/26/20 20:00 98.1 100 21 133/79 (97) 99 06/26/20 20:00 100 06/26/20 19:59 100 Nasal Cannula 2.0 28 06/26/20 19:58 81 20 100 Nasal Cannula 2.0 28 86 20 100 06/26/20 16:00 92 06/26/20 16:00 98.6 75 18 130/81 (97) 100 06/26/20 13:40 86 20 99 Venturi Mask 6.0 35 81 20 99 06/26/20 12:00 96.7 71 20 131/71 (91) 100 06/26/20 12:00 80 Intake and Output 06/26/20 06/27/20 19:00 07:00 Intake Total 480.0 ml Output Total 200 ml 1200 ml Balance -200 ml -720.0 ml Free Water 100 ml IV Total 110.0 ml Tube Feeding 270 ml Output Urine Total 200 ml 1200 ml Height (Feet): 6 Height (Inches): 6.00 Weight (Pounds): 128 General Appearance: no apparent distress EENT: normal ENT inspection Neck: supple Cardiovascular: normal rate Respiratory/Chest: decreased breath sounds Abdomen: normal bowel sounds, non tender, soft Extremities: non-tender Assessment/Plan Status: fever Assessment/Plan: jaw fracture dysphagia leukocytosis VT s/p PEG placement GTF monitor for residuals fu cardiology Ismael Kwon MD Jun 27, 2020 09:46
--- NOTE | 2020-06-27 09:53 | Pulmonology Progress Note ---
Subjective ROS Limited/Unobtainable: No Interval Events: None new; s/p PEG Constitutional: Denies: fever HEENT: Repors: no symptoms Respiratory: Reports: no symptoms Cardiovascular: Reports: no symptoms Gastrointestinal/Abdominal: Denies: diarrhea Genitourinary: Reports: no symptoms Allergies: Coded Allergies: ASPIRIN (Verified Allergy, Unknown, 06/13/20) Objective Last 24 Hour Vital Signs Date Time Temp Pulse Resp B/P (MAP) Pulse Ox O2 Delivery O2 Flow Rate FiO2 06/27/20 09:01 106 155/96 06/27/20 09:00 Nasal Cannula 3.0 06/27/20 08:00 96.8 106 20 155/96 (115) 99 06/27/20 08:00 109 06/27/20 07:00 98 Nasal Cannula 2.0 28 06/27/20 07:00 88 22 100 Nasal Cannula 2.0 28 98 22 99 06/27/20 04:00 98.9 76 18 147/60 (89) 97 06/27/20 04:00 76 06/27/20 00:00 97.5 82 20 150/86 (107) 100 06/27/20 00:00 76 06/26/20 21:23 100 133/79 06/26/20 21:00 Nasal Cannula 4.0 06/26/20 20:00 98.1 100 21 133/79 (97) 99 06/26/20 20:00 100 06/26/20 19:59 100 Nasal Cannula 2.0 28 06/26/20 19:58 81 20 100 Nasal Cannula 2.0 28 86 20 100 06/26/20 16:00 92 06/26/20 16:00 98.6 75 18 130/81 (97) 100 06/26/20 13:40 86 20 99 Venturi Mask 6.0 35 81 20 99 06/26/20 12:00 96.7 71 20 131/71 (91) 100 06/26/20 12:00 80 Intake and Output 06/26/20 06/27/20 19:00 07:00 Intake Total 480.0 ml Output Total 200 ml 1200 ml Balance -200 ml -720.0 ml Free Water 100 ml IV Total 110.0 ml Tube Feeding 270 ml Output Urine Total 200 ml 1200 ml General Appearance: no acute distress HEENT: normocephalic Respiratory: chest wall non-tender, lungs clear Cardiovascular: normal peripheral pulses, regular rhythm Abdomen: normal bowel sounds Current Medications Medications (Trade) Dose Ordered Sig/Daniele Route PRN Reason Start Time Stop Time Status Last Admin Dose Admin Acetaminophen (Tylenol) 650 mg Q4H PRN NG Mild Pain (Pain Scale 1-3) 06/20/20 13:30 07/13/20 21:44 06/24/20 04:11 Acetaminophen (Tylenol) 650 mg Q6H PRN RECTAL Temp >100.5 06/16/20 15:43 07/16/20 15:42 06/21/20 09:16 Albuterol/ Ipratropium (Albuterol/ Ipratropium) 3 ml Q4H PRN HHN Shortness of Breath 06/23/20 17:13 06/28/20 17:12 Albuterol/ Ipratropium (Albuterol/ Ipratropium) 3 ml TIDRT HHN 06/25/20 07:00 06/30/20 06:59 06/27/20 06:59 Haloperidol Lactate (Haldol) 5 mg Q6H PRN IM Agitation 06/14/20 14:45 07/29/20 14:44 06/27/20 01:29 Heparin Sodium (Porcine) (Heparin 5000 units/ml) 5,000 units EVERY 12 HOURS SUBQ 06/14/20 09:00 07/29/20 08:59 06/27/20 09:01 Metoprolol Tartrate (Lopressor) 25 mg Q12HR GT 06/25/20 09:00 09/23/20 08:59 06/27/20 09:01 Olanzapine (ZyPREXA) 5 mg BEDTIME NG 06/20/20 21:00 07/29/20 20:59 06/26/20 21:23 Piperacillin Sod/ Tazobactam Sod 3.375 gm/Sodium Chloride 110 ml @ 27.5 mls/hr Q8H IVPB 06/21/20 18:00 06/28/20 17:59 06/27/20 01:24 Tramadol HCl (Ultram) 50 mg Q6H PRN NG Moderate Pain (Pain Scale 4-6) 06/23/20 17:13 06/30/20 17:12 Assessment/Plan Assessment/Plan IMPRESSION: 1. Pulmonary congestion; suspect difficulty with handling upper airway secretions; no pneumonia on CXR 2. Altered mental status. 3. Dementia. 4. Jaw fracture. 5. Status post fall. 6. Depression. DISCUSSION: Continue broad-spectrum antibiotics. S/p PEG I will follow carefully. Continue low flow O2; now on 3L/min Hayden Cartwright Omar Syed MD Jun 27, 2020 09:53
--- NOTE | 2020-06-27 11:25 | Infectious Diseases Prog Note ---
Assessment/Plan Assessment/Plan antibiotics : zosyn 06.21.20 - A 1. proteus pneumonia s/p rx 2. Dementia. 3. Depression. 4. History of mandibular fracture status post surgery. 5. leucocytosis improving P 1. d/c zosyn 2. observe off antibiotics Subjective ROS Limited/Unobtainable: Yes Allergies: Coded Allergies: ASPIRIN (Verified Allergy, Unknown, 06/13/20) Objective Last 24 Hour Vital Signs Date Time Temp Pulse Resp B/P (MAP) Pulse Ox O2 Delivery O2 Flow Rate FiO2 06/27/20 09:01 106 155/96 06/27/20 09:00 Nasal Cannula 3.0 06/27/20 08:00 96.8 106 20 155/96 (115) 99 06/27/20 08:00 109 06/27/20 07:00 98 Nasal Cannula 2.0 28 06/27/20 07:00 88 22 100 Nasal Cannula 2.0 28 98 22 99 06/27/20 04:00 98.9 76 18 147/60 (89) 97 06/27/20 04:00 76 06/27/20 00:00 97.5 82 20 150/86 (107) 100 06/27/20 00:00 76 06/26/20 21:23 100 133/79 06/26/20 21:00 Nasal Cannula 4.0 06/26/20 20:00 98.1 100 21 133/79 (97) 99 06/26/20 20:00 100 06/26/20 19:59 100 Nasal Cannula 2.0 28 06/26/20 19:58 81 20 100 Nasal Cannula 2.0 28 86 20 100 06/26/20 16:00 92 06/26/20 16:00 98.6 75 18 130/81 (97) 100 06/26/20 13:40 86 20 99 Venturi Mask 6.0 35 81 20 99 06/26/20 12:00 96.7 71 20 131/71 (91) 100 06/26/20 12:00 80 Height (Feet): 6 Height (Inches): 6.00 Weight (Pounds): 128 Respiratory/Chest: lungs clear Cardiovascular: normal rate, regular rhythm, no gallop/murmur Abdomen: soft, non tender Extremities: no edema Current Medications Medications (Trade) Dose Ordered Sig/Daniele Route PRN Reason Start Time Stop Time Status Last Admin Dose Admin Acetaminophen (Tylenol) 650 mg Q4H PRN NG Mild Pain (Pain Scale 1-3) 06/20/20 13:30 07/13/20 21:44 06/24/20 04:11 Acetaminophen (Tylenol) 650 mg Q6H PRN RECTAL Temp >100.5 06/16/20 15:43 07/16/20 15:42 06/21/20 09:16 Albuterol/ Ipratropium (Albuterol/ Ipratropium) 3 ml Q4H PRN HHN Shortness of Breath 06/23/20 17:13 06/28/20 17:12 Albuterol/ Ipratropium (Albuterol/ Ipratropium) 3 ml TIDRT HHN 06/25/20 07:00 06/30/20 06:59 06/27/20 06:59 Haloperidol Lactate (Haldol) 5 mg Q6H PRN IM Agitation 06/14/20 14:45 07/29/20 14:44 06/27/20 01:29 Heparin Sodium (Porcine) (Heparin 5000 units/ml) 5,000 units EVERY 12 HOURS SUBQ 06/14/20 09:00 07/29/20 08:59 06/27/20 09:01 Metoprolol Tartrate (Lopressor) 25 mg Q12HR GT 06/25/20 09:00 09/23/20 08:59 06/27/20 09:01 Olanzapine (ZyPREXA) 5 mg BEDTIME NG 06/20/20 21:00 07/29/20 20:59 06/26/20 21:23 Piperacillin Sod/ Tazobactam Sod 3.375 gm/Sodium Chloride 110 ml @ 27.5 mls/hr Q8H IVPB 06/21/20 18:00 06/28/20 17:59 06/27/20 10:43 Tramadol HCl (Ultram) 50 mg Q6H PRN NG Moderate Pain (Pain Scale 4-6) 06/23/20 17:13 06/30/20 17:12 Viviane Botello MD Jun 27, 2020 11:25
[2020-06-27 12:00] VITALS: BP 123/86
[2020-06-27] MEDS ORDERED: Albuterol/Ipratropium 3ml neb HHN PRN (15:30)
[2020-06-27] MEDS ORDERED: Acetaminophen 650mg/20.3ml NG PRN (15:30)
[2020-06-27] MEDS ORDERED: traMADol 50mg tab ORAL PRN (15:30)
[2020-06-27] MEDS ORDERED: ACETAMINOPHEN325 M1 ORAL ×2 (15:36→15:40)
[2020-06-27] MEDS ORDERED: DUONEB 0.5-3(2.53 ML HHN ×2 (15:37→15:38)
[2020-06-27] MEDS ORDERED: HEPARIN SO5000 UNIT2 SUBQ (15:37)
[2020-06-27] MEDS ORDERED: METOPROLOL TART25 MG ORAL (15:38)
[2020-06-27] MEDS ORDERED: ZYPREXA5 MG ORAL (15:39)
[2020-06-27] MEDS ORDERED: TRAMADOL HCL50 MG ORAL (15:39)
[2020-06-27 16:00] VITALS: BP 123/72
--- NOTE | 2020-06-27 16:30 | General Progress Note ---
Subjective Allergies: Coded Allergies: ASPIRIN (Verified Allergy, Unknown, 06/13/20) Subjective more awake non verabal s/p egd tolerating tufe feeding Objective Last 24 Hour Vital Signs Date Time Temp Pulse Resp B/P (MAP) Pulse Ox O2 Delivery O2 Flow Rate FiO2 06/27/20 16:00 97.9 101 20 123/72 (89) 92 06/27/20 13:54 82 22 100 Nasal Cannula 2.0 28 80 20 98 06/27/20 12:00 69 06/27/20 12:00 97.3 80 20 123/86 (98) 99 06/27/20 09:01 106 155/96 06/27/20 09:00 Nasal Cannula 3.0 06/27/20 08:00 96.8 106 20 155/96 (115) 99 06/27/20 08:00 109 06/27/20 07:00 98 Nasal Cannula 2.0 28 06/27/20 07:00 88 22 100 Nasal Cannula 2.0 28 98 22 99 06/27/20 04:00 98.9 76 18 147/60 (89) 97 06/27/20 04:00 76 06/27/20 00:00 97.5 82 20 150/86 (107) 100 06/27/20 00:00 76 06/26/20 21:23 100 133/79 06/26/20 21:00 Nasal Cannula 4.0 06/26/20 20:00 98.1 100 21 133/79 (97) 99 06/26/20 20:00 100 06/26/20 19:59 100 Nasal Cannula 2.0 28 06/26/20 19:58 81 20 100 Nasal Cannula 2.0 28 86 20 100 Intake and Output 06/26/20 06/27/20 19:00 07:00 Intake Total 480.0 ml Output Total 200 ml 1200 ml Balance -200 ml -720.0 ml Free Water 100 ml IV Total 110.0 ml Tube Feeding 270 ml Output Urine Total 200 ml 1200 ml Height (Feet): 6 Height (Inches): 6.00 Weight (Pounds): 128 General Appearance: cachetic Neck: non-tender, supple Cardiovascular: normal rate Respiratory/Chest: normal breath sounds Abdomen: non tender, soft Extremities: non-tender Assessment/Plan Status: fever Assessment/Plan: v tach resolved add metaprolol , cardio dr barclay is on the case aspiration pneumonia dc rocephine, add zosyn cont broncodilaor tx, dw pulmonary consult 1 uti resolved 2 fever 3 aloc 4 dementia 5 fall 6 failure of thrive 7 ac cardio-pulmonary arrest 8 old mandible fracture 9 dysphasia 10 failure of thrive need peg dw dr gonzalez s/p peg feeding per gi aspiration precaution dc tp snf , off abx dw charge nurse Jakob Munoz MD Jun 27, 2020 16:30
[2020-06-27] MEDS ORDERED: D5W 275ml ONE (17:41)
[2020-06-27] MEDS ORDERED: Tubing IV Secondary IV ONE (17:41)
[2020-06-27] MEDS ORDERED: Albuterol/Ipratropium 3ml neb HHN SCH (19:00)
--- NOTE | 2020-06-27 23:36 | Psychiatric Progress Note ---
Psychiatry Progress Note Psychiatry Progress Note Neurological/Psychiatric: Reports: anxiety, depressed, emotional problems, weakness Allergies: Coded Allergies: ASPIRIN (Verified Allergy, Unknown, 06/13/20) Objective Data Height (Feet): 6 Height (Inches): 6.00 Weight (Pounds): 128 General Appearance: cachetic Additional Comments: waxing consciousness. Disoriented. Mood is anxious. Affect is flat. Thought process, there is a paucity of thought content. Thought content, no suicidal or homicidal ideation. Cognition is impaired. Insight and judgment is impaired. Assessment/Plan [employer] I: ASSESSMENT: [employer] I Dementia. Acute encephalopathy. [employer] II Deferred. [employer] III Multiple falls. [employer] IV Low. [employer] V 20. PLAN: 1. Zyprexa 5 mg. 2. Haldol p.r.n. 3. Discontinue Ativan IV and continue the p.o. 4. Discussed with the nurse. Status: fever Status Narrative ASSESSMENT: [employer] I Dementia. Acute encephalopathy. [employer] II Deferred. [employer] III Multiple falls. [employer] IV Low. [employer] V 20. PLAN: 1. Zyprexa 5 mg. 2. Haldol p.r.n. 3. Discontinue Ativan IV and continue the p.o. 4. Discussed with the nurse. Assessment/Plan: ASSESSMENT: [employer] I Dementia. Acute encephalopathy. [employer] II Deferred. [employer] III Multiple falls. [employer] IV Low. [employer] V 20. PLAN: 1. Zyprexa 5 mg. 2. Haldol p.r.n. 3. Discontinue Ativan IV and continue the p.o. 4. Discussed with the nurse. Joni Del Rosario MD Jun 27, 2020 23:36
--- NOTE | 2020-06-27 23:59 | Cardiology Progress Note ---
Assessment/Plan Assessment/Plan 1. Sinus tachycardia, likely due to sepsis, multilobar pneumonia (CXR shows worsening of airspace disease), 2D echo shows normal LVEF. 2. Syncope, most likely due to hypovolemia versus neurocardiogenic, normal LV fxn. 3. Bilateral pneumonia, continue IV antibiotics. 4. Status post fall with jaw fracture. 5. Small pericardial effusion. 6. Mild pulmonary HTN. 7. Acute hypoxemic respiratory failure. 8. Dysphagia, s/p GT placement on Jun 24. Subjective Subjective Sinus tachycardia at rate of 101. On NC 2 lit/min Objective Last 24 Hour Vital Signs Date Time Temp Pulse Resp B/P (MAP) Pulse Ox O2 Delivery O2 Flow Rate FiO2 06/27/20 16:00 97.9 101 20 123/72 (89) 92 06/27/20 13:54 82 22 100 Nasal Cannula 2.0 28 80 20 98 06/27/20 12:00 69 06/27/20 12:00 97.3 80 20 123/86 (98) 99 06/27/20 09:01 106 155/96 06/27/20 09:00 Nasal Cannula 3.0 06/27/20 08:00 96.8 106 20 155/96 (115) 99 06/27/20 08:00 109 06/27/20 07:00 98 Nasal Cannula 2.0 28 06/27/20 07:00 88 22 100 Nasal Cannula 2.0 28 98 22 99 06/27/20 04:00 98.9 76 18 147/60 (89) 97 06/27/20 04:00 76 06/27/20 00:00 97.5 82 20 150/86 (107) 100 06/27/20 00:00 76 Intake and Output0 06/26/20 06/27/20 19:00 07:00 Intake Total 480.0 ml Output Total 200 ml 1200 ml Balance -200 ml -720.0 ml Free Water 100 ml IV Total 110.0 ml Tube Feeding 270 ml Output Urine Total 200 ml 1200 ml 2D Echo: EF 60%, Small Pericardial Eff, RVSP 41 mmHg, Grade I LVDD, Mild AR Objective HEENT: Atraumatic and normocephalic. Anicteric. Pupils are equal, round, and reactive to light and accommodation. On venturi mask. NECK: JVP less than 5 cm. No carotid bruit. CARDIOVASCULAR: Normal S1, S2. Tachycardic. Regular rate and rhythm. No murmurs, gallops, or rubs. LUNGS: Diminished bilaterally. ABDOMEN: Soft, nontender, nondistended. No hepatosplenomegaly. Positive bowel sounds, + GT in place. EXTREMITIES: No evidence of edema, clubbing, or cyanosis. Jimbo Kebede MD Jun 27, 2020 23:59
[2020-06-28] MEDS ORDERED: Heparin 5000 units/ml inj SUBQ SCH (09:00)
--- NOTE | 2020-06-29 10:11 | Discharge Summary ---
Discharge Summary Discharge Summary _ DATE OF ADMISSION: 06/13/2020 DATE OF DISCHARGE: 06/27/2020 DISCHARGED BY: Dr. Munoz REASON FOR ADMISSION: 74 years old male with past medical history of dementia, presented due to syncopal episode and head trauma. Patient apparently was getting out of the tub and had a syncopal episode. Patient fell and struck the left side of his head on the edge of the tub. Patient apparently was unconscious for few seconds. His daughter witnessed the event. Upon evaluation patient rexported mild left-sided headache. He denied vision changes, no numbness or focal weakness. No fever or chills. No chest pain, shortness of breath. No back pain. No abdominal pain, nausea . vomiting or diarrhea. No dysuria Upon evaluation vital signs were stable. Laboratory work-up revealed no leukocytosis , hemoglobin 13.3, hematocrit 39.1. Potassium 3.2. BUN 14, creatinine 1.2. Glucose 104. AST 55, ALT 31. Troponin 0.02.EKG revealed sinus rhythm. Albumin 3.2. Urinalysis revealed +[address] of the head revealed chronic and age-related changes. No acute intracranial bleeding or mass-effect. CT scan of the cervical spine revealed no evidence of acute cervical spine trauma. Multilevel degenerative changes noted. Chest x-ray revealed no acute cardiopulmonary pathology. Patient admitted for for further management CONSULTANTS: ornamental ironworking supervisor Dr. Kebede pulmonary Dr. Singh ID specialist Dr. Botello GI specialist Dr. Kwon psychiatrist Dr. Del Rosario [place] [facility]RSE: Patient admitted to telemetry floor. Benefits Technician followed. Patient was initially provided with gentle hydration. Syncope was most likely due to hypovolemia versus neurocardiogenic, as per ornamental ironworking supervisor. Echocardiogram revealed preserved ejection fraction. CT scan of maxillofacial revealed fracture on the left side of the mandible , suspected acute given overlying soft tissue swelling and gas. However some sclerotic fracture line suggested , that this could be in fact subacute or old ununited fracture. Postsurgical changes of the mandible with evidence of prior surgical repair of the omentum and left paramental region and of the right ramus. X-ray of the mandible showed left mandibular fracture with postsurgical changes, confirming findings on prior CT . On 06/16 patient developed hypoxia and tachycardia after suctioning. Rapid response team was called. Patient subsequently transferred to ICU for further management. ID specialist and medical fee clerk consult requested. Patient started on broad-spectrum antibiotics. Rapid COVID-19 was negative. Urine culture was negative. Sputum culture revealed Proteus mirabilis ESBL. Antibiotic regimen optimized as per ID specialist recommendation. Patient completed antibiotic treatment while in the hospital. Leukocytosis trending down , prior to discharge 11.2. Fevers resolved. Patient exhibited some sinus tachycardia, which was likely due to sepsis and pneumonia. Heart rate improved. Supplemental oxygen provided and titrated to keep pulse oximetry above 92%. Pulmonary toilet provided. Bedside swallow evaluation revealed high aspiration risk. Speech therapist recommended video swallow evaluation when feasible and keep patient NPO. GI specialist followed. As WBC improved, patient undergone an 06/24 upper endoscopy with PEG placement. Patient tolerated procedure well. Postprocedure strict aspiration and reflux precautions maintained. G-tube site care provided. Tube feeding formula with goal rate and protein supplements provided as per registered dietitian recommendation. Fall precaution maintained. Patient was working with physical therapist. Psychiatrist followed. Psychiatric medication regimen was optimized as per psychiatrist. Supportive care provided. Placement was arranged to the shelter facility. Patient was stable for transfer FINAL DIAGNOSES: s/p multiply falls Syncopal episode, likely due to hypovolemia versus neurocardiogenic Dehydration Acute encephalopathy Dementia Sepsis Proteus pneumonia, probably aspiration Acute hypoxemic respiratory failure Mild pulmonary hypertension Small pericardial effusion Dysphagia, status post G-tube placement Mandibular fracture, status post surgery Moderate protein calorie malnutrition Hypoalbuminemia DISCHARGE MEDICATIONS: See Medication Reconciliation list. DISCHARGE INSTRUCTIONS: Patient was discharged to the shelter facility. Follow up with medical doctor at the facility. I have been assigned to dictate discharge summary for this account. I was not involved in the patient's management. Rosalva Núñez NP Jun 29, 2020 10:11
== END 2020-06-27 17:42 | DRG 463 ==
LOC: EMR 15:29 → 2E 16:04 → OBSVTOIN 16:04 → EDBEDREQ 18:09 → 2E 19:41 → 4E 06-15 18:27 → ICU 06-16 12:32 → 2W 06-17 11:52 → 2E 06-17 23:09 → 3E 06-18 15:30 → 2E 06-21 20:57
PROC: 0DH63UZ Insertion of Feeding Device into Stomach, Percutaneous Approach (ICD-10-PCS; principal; 2020-06-24 14:33)
DX: N39.0 Urinary tract infection, site not specified (principal); G93.40 Encephalopathy, unspecified; E86.1 Hypovolemia; J69.0 Pneumonitis due to inhalation of food and vomit; A41.9 Sepsis, unspecified organism; E86.0 Dehydration; F03.90 Unspecified dementia, unspecified severity, without behavioral disturbance, psychotic disturbance, mood disturbance, and anxiety; R55 Syncope and collapse; R62.7 Adult failure to thrive; E44.0 Moderate protein-calorie malnutrition; Z68.1 Body mass index [BMI] 19.9 or less, adult; Z88.6 Allergy status to analgesic agent; S02.69XD Fracture of mandible of other specified site, subsequent encounter for fracture with routine healing; X58.XXXD Exposure to other specified factors, subsequent encounter; Z98.890 Other specified postprocedural states; E87.3 Alkalosis; R13.10 Dysphagia, unspecified; Z91.81 History of falling; J96.01 Acute respiratory failure with hypoxia; J15.6 Pneumonia due to other Gram-negative bacteria; R29.6 Repeated falls; I27.20 Pulmonary hypertension, unspecified; E88.09 Other disorders of plasma-protein metabolism, not elsewhere classified; F32.9 Major depressive disorder, single episode, unspecified; R32 Unspecified urinary incontinence; I31.3 Pericardial effusion (noninflammatory)
CPT/HCPCS: 36415; 70110; 70450; 70486; 71045; 72125; 74018; 80048; 80053; 81003; 82803; 82962; 83735; 84100; 84484; 85007; 85025; 85610; 87070; 87086; 87181; 87205; 93005; 93306; 94003; 94150; 94640; 94664; 96360; 96365; 96375; 99285; J2250; J7030; J7620; J8499; U0002